=== PATIENT | male | born 1960 | race Hispanic/Latino ===

== ENCOUNTER 2016-10-20 08:56 | Day surgery (SDC) | payer OTHER ==
[2016-10-20] MEDS ORDERED: Indomethacin 50 MG Suppository PR ONE (09:18)
[2016-10-20 09:53] VITALS: BMI 29.7
[2016-10-20] MEDS ORDERED: Midazolam 2 MG/2 ML VIAL ONE (10:03)
[2016-10-20] MEDS ORDERED: Propofol 10 mg/ml Inj (20 ML) ONE (10:03)
[2016-10-20] MEDS ORDERED: Succinylcholine Chloride 20 mg/ml Syr (5 ml) IV ONE (10:03)
[2016-10-20] MEDS ORDERED: Phenylephrine 10 mg/ml Inj ONE (10:14)
--- NOTE | 2016-10-20 10:15 | CP.SDSHP ---
Same Day Surgery H & P - History Proposed Procedure: EGD/EUS/ERCP Pre-Op Diagnosis: Biliary obstruction. Cholangitis. CBD stricture. h/o metal cbd stent. Jaundice. Alcohol abuse. Chronic pancreatitis - Previous Medical/Surgical History Previous Surgical History: Biliary stent - Allergies Allergies: Allergies No Known Allergies Allergy (Verified 10/17/16 09:27) - Physical Exam General Appearance: jaundice Vital Signs: Vital Signs 10/20/16 09:43 Temperature 98 F Pulse Rate 66 Respiratory 20 Rate Blood Pressure 109/76 O2 Sat by Pulse 977 H Oximetry Mental Status: Alert & Oriented x3 Neuro: WNL Heart: WNL Lungs: WNL GI: WNL - {Optional Preform as Required} Abdomen: WNL - Impression Impression: Cholangitis. Chronic pancreatitis. Biliary obstruction. Etoh Abuse. CBD stricture - Date & Time Date: 10/20/16 Time: 10:15 Short Stay Discharge - Short Stay Discharge Admitting Diagnosis/Reason for Visit: SEPSIS,CHOLANGITIS Disposition: HOME/ ROUTINE
[2016-10-20 11:59] VITALS: TEMP 97.3
[2016-10-20 13:06] VITALS: O2SAT 97
[2016-10-20 13:24] VITALS: BP 115/64; PULSE 65; RESP 14
[2016-10-20] MEDS ORDERED: Iohexol 240 (50 ml) ONE (14:02)
--- NOTE | 2016-10-21 13:05 | RAD ---
PROCEDURE: Fluoroscopy up to 1 hour for ERCP HISTORY: Biliary obstruction COMPARISON: None TECHNIQUE: Total fluoroscopic time utilized during the procedure: 23897.3 seconds. Total dose 1.6 mGy cm squared FINDINGS: Submitted images from the current procedure: 14 Please refer to the physician's notes performing the procedure. IMPRESSION: Less than 1 hour fluoroscopic time utilized during performance of the procedure
== END 2016-10-20 13:22 | disposition designated cancer center or children's hospital (05) ==
LOC: C.ENDO 08:56
PROVIDERS: ATTEND Internal Medicine
DX: K86.1 Other chronic pancreatitis (principal); R16.1 Splenomegaly, not elsewhere classified; F10.10 Alcohol abuse, uncomplicated; K83.0 Cholangitis
CPT/HCPCS: 43259; 43260; 76000; 88307; C1726; J2001; J2250; J2370; J2405; J2704; J3010; Q9966

== ENCOUNTER 2017-05-25 16:29 | Inpatient (IN) | payer MEDICAID, OTHER ==
[2017-05-25 16:29] VITALS: BMI 29.7
[2017-05-25] MEDS ORDERED: Sodium Chloride 0.9% 1,000 ML IV ONE (21:04)
[2017-05-25] MEDS ORDERED: Piperacillin/Tazobact 3.375 gm 100 ML IV STA (21:16)
[2017-05-25 22:22] LABS: CALCIUM 8.4 mg/dl (8.6-10.4); GFR AFRICAN-AMERICAN > 60; GFR NON-AFRICAN AMERICAN > 60; LIPASE 100 U/L (23-300)
[2017-05-25 22:24] LABS: ALB/GLOB RATIO 1.1 (1.0-2.1); ALBUMIN 3.9 g/dL (3.5-5.0); ALT/SGPT 190 U/L (21-72); AST/SGOT 206 U/L (17-59); BLOOD UREA NITROGEN 13 mg/dL (9-20)
--- NOTE | 2017-05-25 22:43 | C.PDOC ---
History Of Present Illness 56yo male, presents to ED with complaints of epigastric pain and fevers, which is consistent with his prior episodes of cholangitis. patient was admitted previously in September 2016 and January 2017 with no follow up for a cholecystectomy. He currently offers no other complaints. Time Seen by Provider: 05/25/17 20:58 Chief Complaint (Nursing): Abdominal Pain History Per: Patient History/Exam Limitations: no limitations Current Symptoms Are (Timing): Still Present Location Of Pain/Discomfort: Epigastric Associated Symptoms: Fever Additional History Per: Patient Past Medical History Reviewed: Historical Data, Nursing Documentation, Vital Signs Vital Signs: Last Vital Signs Temp 99.3 F 05/25/17 19:59 Pulse 102 H 05/25/17 19:59 Resp 16 05/25/17 19:59 BP 131/79 05/25/17 19:59 Pulse Ox 97 05/25/17 23:06 - Medical History PMH: Anxiety, Depression, Gastritis, Pancreatitis, Seizures (RELATED TO ETHO ABUSE ) Denies: CHF, HIV, Chronic Kidney Disease Surgical History: Endoscopy - [facility] Procedures DILATION OF COMMON BILE DUCT WITH INTRALUMINAL DEVICE, ENDO (01/30/17) EXCISION OF COMMON BILE DUCT, ENDO, DIAGN (10/17/16) EXTIRPATION OF MATTER FROM COMMON BILE DUCT, ENDO (01/30/17) EXTIRPATION OF MATTER FROM PANCREATIC DUCT, ENDO (01/30/17) PHERESIS OF PLATELETS, SINGLE (10/17/16) Family History: States: Unknown Family Hx - Social History Hx Alcohol Use: Yes Hx Substance Use: No Review Of Systems Except As Marked, All Systems Reviewed And Found Negative. Constitutional: Positive for: Fever Gastrointestinal: Positive for: Abdominal Pain Physical Exam - Physical Exam Appears: Non-toxic, Other (moderate painful distress) Skin: Normal Color Head: Normacephalic Eye(s): bilateral: Normal Inspection Neck: Normal ROM, Supple Cardiovascular: Rhythm Regular Respiratory: Normal Breath Sounds, No Wheezing Gastrointestinal/Abdominal: Bowel Sounds, No Tenderness, Other (firm abdomen; + Shook's sign) Neurological/Psych: Oriented x3, Normal Speech, Normal Cognition ED Course And Treatment - Laboratory Results Result Diagrams: 05/25/17 22:03 Lab Interpretation: Abnormal O2 Sat by Pulse Oximetry: 97 (RA) Pulse Ox Interpretation: Normal - Radiology CXR: Interpreted by [place] CXR Interpretation: Yes: No Acute Disease - Other Rad abd x 2 X-Ray: Interpreted by Me (increased stool on R side) Reevaluation Time: 00:06 Reassessment Condition: Improved - Physician Consult Information Outcome Of Conversation: 2229: d/w Surg Trevor and Dr. Sweeney- will consult. 0000: dw Dr. Fátima Valenzuela, ok to admit Medical Decision Making Medical Decision Making: Plan: -- Case discussed with neurosurgical physician assistant at [phone] and will consult. Prior records reviewed, patient seen by Dr. Ornelas in past for an upper endoscopy. -- Labs -- IV fluids -- XR Abdomen -- Morphine 6mg IV -- Protonix 40mg IV -- Zofran 4mg IV -- IV Zosyn recurrent cholangitis- 3rd episode (in our hospital system) Seems pt lost to f/u for elective cholecystectomy after GB "cools down" Disposition Doctor Will See Patient In The: Hospital Counseled Patient/Family Regarding: Studies Performed, Diagnosis - Disposition Disposition: HOSPITALIZED Disposition Time: 00:08 Condition: GOOD Forms: [employer] (Greenlandic) - Clinical Impression Clinical Impression: Abdominal colic, Cholangitis - Scribe Statement The provider has reviewed the documentation as recorded by the Scribe (Maddison Ivory) Provider Attestation: All medical record entries made by the Scribe were at my direction and personally dictated by me. I have reviewed the chart and agree that the record accurately reflects my personal performance of the history, physical exam, medical decision making, and the department course for this patient. I have also personally directed, reviewed, and agree with the discharge instructions and disposition.
--- NOTE | 2017-05-25 23:52 | US ---
EXAM: US Abdomen Limited, Right Upper Quadrant CLINICAL HISTORY: 56 years old, male; Pain; Abdominal pain; Generalized; Additional info: Ruq, focus gb, h/o cholangitis TECHNIQUE: Real-time ultrasound of the right upper quadrant with image documentation. COMPARISON: No relevant prior studies available. FINDINGS: Limitations: Body habitus. Overlying bowel gas. Liver: Fatty infiltration. Probable 3.1 x 3.2 x 3.2 cm cyst. Mild intrahepatic ductal dilatation. Gallbladder: No definite gallstones. No wall thickening. Small pericholecystic fluid. No sonographic Shook's sign. Common bile duct: Up to 0.72 cm in diameter. No stones. Pancreas: Obscured by overlying bowel gas. Right kidney: Normal echogenicity. No hydronephrosis. IMPRESSION: 1. Mild biliary ductal dilatation. Correlate with laboratory values. Suggest MRCP. 2. Small pericholecystic fluid. Clinical correlation is needed.
[2017-05-26 00:53] LABS: BASO # 0.1 K/uL (0.0-0.2); BASO % 0.5 % (0.0-2.0); EOS % 0.1 % (0.0-4.0); LYMPH # 0.6 K/uL (1.0-4.3); LYMPH % 3.7 % (20.0-40.0); MEAN CELL VOLUME 89.3 fL (80.0-94.0); MEAN CORPUSCULAR HEMOGLOBIN 30.8 pg (27.0-31.0); MEAN CORPUSCULAR HGB CONC 34.5 g/dL (33.0-37.0); MEAN PLATELET VOLUME 10.2 fL (7.2-11.7); MONO # 1.3 K/uL (0.0-0.8); MONO % 8.3 % (0.0-10.0); NEUT # 13.9 K/uL (1.8-7.0); NEUT % 87.4 % (50.0-75.0); PLATELET COUNT 106 K/uL (130-400); RBC 4.88 Mil/uL (4.40-5.90); RED CELL DISTRIBUTION WIDTH 14.8 % (11.5-14.5); WHITE BLOOD COUNT 15.9 K/uL (4.8-10.8)
[2017-05-26 00:55] LABS: URINE BILIRUBIN 2+ (NEGATIVE); URINE BLOOD NEGATIVE (NEGATIVE); URINE CLARITY Clear (Clear); URINE COLOR Amber (YELLOW); URINE GLUCOSE (UA) NORMAL (Normal); URINE HYALINE CAST 0-2 /lpf (0-2); URINE LEUKOCYTE ESTERASE NEG Leu/uL (Negative); URINE NITRATE NEGATIVE (NEGATIVE); URINE PROTEIN NEGATIVE (NEGATIVE)
[2017-05-26] MEDS ORDERED: Morphine 4 MG/ML VIAL ONE (00:56)
[2017-05-26] MEDS ORDERED: Piperacillin/Tazobact 3.375 gm 100 ML IVPB SCH (01:00)
--- NOTE | 2017-05-26 01:07 | CP.PCM.CON ---
<NancySandrine - Last Filed: 05/26/17 01:13> History of Present Illness - History of Present Illness History of Present Illness: General Surgery Dr. Banuelos 56 y/o M w/ PMHx of cholangitis w/ ERCP and stenting, last in 01/2017, presents to the ED c/o abd pain x1day. Pain is similar to previous 2 episodes of ascending cholangitis. Pain localized to RUQ/epigastric region. Pain associated w/ nausea and dry heaves though pt denies actually vomiting. 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 Pt denies black stool or BRBPR. Pt is febrile in ED and found to have elevated LFTs and T. Bili. Surgery was consulted for suspected recurrent ascending cholangitis. PMHx: see above, EtOH dependence, seizures, gastritis, pancreatitis, anxiety, depression Meds: reviewed in chart. NKDA PSHx: ERCP w/ stenting, R inguinal hernia repair SHx: 1-1.5ppd x40yrs; stopped drinking 3yrs ago; denies drug use FHx: noncontributory Review of Systems - Review of Systems All systems: reviewed and no additional remarkable complaints except (see HPI) Past Patient History - Past Medical History & Family History Past Medical History?: Yes - Past Social History Smoking Status: Heavy Smoker > 10 Cigarettes Daily - CARDIAC Hx Congestive Heart Failure: No - PULMONARY Hx Respiratory Disorders: No - NEUROLOGICAL Hx Seizures: Yes (RELATED TO ETHO ABUSE ) - HEENT Hx HEENT Problems: No - RENAL Hx Chronic Kidney Disease: No - ENDOCRINE/METABOLIC Hx Endocrine Disorders: No - HEMATOLOGICAL/ONCOLOGICAL Hx Human Immunodeficiency Virus (HIV): No - INTEGUMENTARY Hx Dermatological Problems: No - MUSCULOSKELETAL/RHEUMATOLOGICAL Hx Musculoskeletal Disorders: Yes Hx Back Pain: Yes Hx Falls: No Hx Herniated Disk: Yes - GASTROINTESTINAL Hx Gastritis: Yes Hx Pancreatitis: Yes - GENITOURINARY/GYNECOLOGICAL Hx Genitourinary Disorders: No - PSYCHIATRIC Hx Anxiety: Yes Hx Depression: Yes Hx Substance Use: No - SURGICAL HISTORY Hx Surgeries: Yes Hx Bile Duct Stent: Yes (CBD STENT 2/3 YEARS AGO) Hx Herniorrhaphy: Yes - ANESTHESIA Hx Anesthesia: Yes Hx Anesthesia Reactions: No Hx Malignant Hyperthermia: No Meds Home Medications: Home Medication List Medication Instructions Recorded Confirmed Type Ciprofloxacin [Cipro] 500 mg PO BID #28 tab 05/28/17 Rx Metronidazole [Flagyl] 500 mg PO TID #40 tablet 05/28/17 Rx QUEtiapine [Seroquel] 200 mg PO HS #30 tab 05/28/17 Rx chlordiazePOXIDE [Librium] 25 mg PO TID PRN #15 cap 05/28/17 Rx Allergies/Adverse Reactions: Allergies Allergy/AdvReac Type Severity Reaction Status Date / Time No Known Allergies Allergy Verified 05/25/17 16:46 Physical Exam - Constitutional Appears: Non-toxic, No Acute Distress - Head Exam Head Exam: NORMAL INSPECTION - Eye Exam Eye Exam: Scleral icterus - ENT Exam ENT Exam: Mucous Membranes Moist - Respiratory Exam Respiratory Exam: NORMAL BREATHING PATTERN. absent: Accessory Muscle Use, Respiratory Distress - GI/Abdominal Exam GI & Abdominal Exam: Guarding (voluntary), Soft, Tenderness. absent: Distended , Rebound, Rigid - Extremities Exam Extremities exam: Positive for: normal inspection - Neurological Exam Neurological exam: Alert, Oriented x3 - Psychiatric Exam Psychiatric exam: Flat Affect, Normal Mood - Skin Skin Exam: Dry, Intact, Warm Results - Vital Signs Recent Vital Signs: Last Vital Signs Temp 99.3 F 05/25/17 19:59 Pulse 102 H 05/25/17 19:59 Resp 16 05/25/17 19:59 BP 131/79 05/25/17 19:59 Pulse Ox 97 05/26/17 00:08 - Labs Result Diagrams: 05/26/17 00:50 05/25/17 22:03 Labs: Laboratory Results - last 24 hr 05/25/17 05/26/17 22:03 00:44 Sodium 139 Potassium 4.9 Chloride 103 Carbon Dioxide 21 L Anion Gap 19 BUN 13 Creatinine 0.7 L Est GFR ( Amer) > 60 Est GFR (Non-Af Amer) > 60 Random Glucose 111 H Calcium 8.4 L Total Bilirubin 5.1 H AST 206 H D ALT 190 H Alkaline Phosphatase 292 H D Total Protein 7.7 Albumin 3.9 Globulin 3.7 Albumin/Globulin Ratio 1.1 Lipase 100 Urine Color Connie Urine Clarity Clear Urine pH 5.0 Ur Specific [place] 1.024 Urine Protein Negative Urine Glucose (UA) Normal Urine Ketones Trace Urine Blood Negative Urine Nitrate Negative Urine Bilirubin 2+ H Urine Urobilinogen 4.0 Ur Leukocyte Esterase Neg Urine WBC (Auto) 3 Urine RBC (Auto) 2 Hyaline Casts 0-2 Alcohol, Quantitative < 10 - Imaging and Cardiology US - abdomen Status: Image reviewed by me, Report reviewed by me Assessment & Plan - Assessment and Plan (Free Text) Assessment: 56 y/o M w/ sepsis and abd pain likely 2/2 ascending cholangitis - NPO, IVF - IV Abx - monitor vitals - GI consult - f/u recs - trend LFTs/T. Bili - surgery once infection clears or melquiades tube if pt decompensates Will discuss w/ Dr. Lakisha Cruz DO PGY2 <Drew Banuelos - Last Filed: 05/29/17 14:54> Results - Vital Signs Recent Vital Signs: Last Vital Signs Temp 97.4 F L 05/28/17 08:57 Pulse 74 05/28/17 08:57 Resp 20 05/28/17 08:57 BP 120/79 05/28/17 08:57 Pulse Ox 95 05/28/17 08:57 - Labs Result Diagrams: 05/28/17 07:16 05/28/17 07:16 Attending/Attestation - Attestation I have personally seen and examined this patient.: Yes I have fully participated in the care of the patient.: Yes I have reviewed all pertinent clinical information: Yes Notes (Text): Pt was seen and examined at beside Agree with above note and assessment Pt with RLQ pain and tenderness Labs and radiology reviewed Ass: Cholangitis s/p ERCP and stent with leucocytosis Plan : GI consult for ERCP and stent removal NPO, IVF IV antibiotics Plan d.w pt in detail Risk and benefit explained in detail.
[2017-05-26 01:36] LABS: BARBITURATES, UR NEGATIVE (NEGATIVE); OPIATES, UR NEGATIVE (NEGATIVE); PHENCYCLIDINE, UR NEGATIVE (NEGATIVE)
[2017-05-26 01:59] LABS: BENZODIAZEPINES, UR POSITIVE (NEGATIVE)
[2017-05-26] MEDS: Piperacillin/Tazobact 3.375 GM in Sodium Chloride 0.9% 100 ML IVPB SCH ×3 (02:30→18:00)
[2017-05-26 02:33] LABS: BANDS 5 % (0-2); LYMPHOCYTE 5 % (20-40); MONOCYTE 8 % (0-10); NEUTROPHIL 82 % (50-75); PLATELET CLUMPS PRESENT; TOTAL CELLS COUNTED 100
[2017-05-26] MEDS ORDERED: Gadodiamide 287 mg/ml 20 ml IV ONE (09:00)
--- NOTE | 2017-05-26 09:28 | CP.PCM.CON ---
<Pedro Mallory - Last Filed: 05/26/17 09:36> History of Present Illness - History of Present Illness History of Present Illness: PGY5 GI Fellow Consult Note Patient is a 56 year old male with PMHx significant for recurrent cholangitis s/ p metal biliary stent placement >5 years ago, chronic pancreatitis 2/2 prior EtOH abuse, polysubstance abuse, anxiety/depression who presented to the ED with complaint of abdominal pain. The patient states pain began yesterday morning in the RUQ and soon generalized to the entire abdomen. At present, he states pain remains worst in the RUQ/RLQ and R flank. He noticed fever, chills and diarrhea prior to arrival in the ED and as pain intensified he came to the hospital for evaluation. He was last seen by our service in January 2017 at [facility] with similar presentation. At that time, ERCP was performed revealing multiple areas of biliary dilation/stricture concerning for possible underlying PSC. A covered metal stent was present in the CBD but had significant tissue ingrowth. Balloon sweep removed sludge. At present, patient is noted to have fever with Tmax 102F and a direct hyperbilirubinemia (T bili 5.1). PMHx: See HPI PSHx: Metal biliary stent placement 5+ years ago, R inguinal hernia repair FHx: Discussed with patient and denies any pertinent history Social: Previously heavy EtOH use, sober 2+ years; +Tobacco use >30 years; prior cocaine, ecstasy and marijuana use 12 system ROS performed and negative except where stated. Past Patient History - Past Medical History & Family History Past Medical History?: Yes - Past Social History Smoking Status: Heavy Smoker > 10 Cigarettes Daily - CARDIAC Hx Congestive Heart Failure: No - PULMONARY Hx Respiratory Disorders: No - NEUROLOGICAL Hx Seizures: Yes (RELATED TO ETHO ABUSE ) - HEENT Hx HEENT Problems: No - RENAL Hx Chronic Kidney Disease: No - ENDOCRINE/METABOLIC Hx Endocrine Disorders: No - HEMATOLOGICAL/ONCOLOGICAL Hx Human Immunodeficiency Virus (HIV): No - INTEGUMENTARY Hx Dermatological Problems: No - MUSCULOSKELETAL/RHEUMATOLOGICAL Hx Musculoskeletal Disorders: Yes Hx Back Pain: Yes Hx Falls: No Hx Herniated Disk: Yes - GASTROINTESTINAL Hx Gastritis: Yes Hx Pancreatitis: Yes - GENITOURINARY/GYNECOLOGICAL Hx Genitourinary Disorders: No - PSYCHIATRIC Hx Anxiety: Yes Hx Depression: Yes Hx Substance Use: No - SURGICAL HISTORY Hx Surgeries: Yes Hx Bile Duct Stent: Yes (CBD STENT 2/3 YEARS AGO) Hx Herniorrhaphy: Yes - ANESTHESIA Hx Anesthesia: Yes Hx Anesthesia Reactions: No Hx Malignant Hyperthermia: No Meds Allergies/Adverse Reactions: Allergies Allergy/AdvReac Type Severity Reaction Status Date / Time No Known Allergies Allergy Verified 05/25/17 16:46 - Medications Medications: Current Medications Chlordiazepoxide (Librium) 25 mg PO PRN PRN PRN Reason: TREMORS Last Admin: 05/26/17 02:37 Dose: 25 mg Enoxaparin Sodium (Lovenox) 40 mg SC DAILY [facility] Metronidazole (Flagyl) 500 mg in 100 mls @ 100 mls/hr IVPB BID [facility] Piperacillin Sod/Tazobactam (Sod 3.375 gm/ Sodium Chloride) 100 mls @ 100 mls/ hr IVPB Q8H JULI Last Admin: 05/26/17 02:30 Dose: 100 mls/hr Pantoprazole Sodium (Protonix Ec Tab) 40 mg PO DAILY [facility] Quetiapine Fumarate (Seroquel) 200 mg PO HS [facility] Physical Exam - Constitutional Appears: No Acute Distress - Eye Exam Eye Exam: EOMI, PERRL, Scleral icterus - ENT Exam ENT Exam: Mucous Membranes Dry - Respiratory Exam Respiratory Exam: Clear to Auscultation Bilateral. absent: Rales, Rhonchi, Wheezes - Cardiovascular Exam Cardiovascular Exam: Tachycardia, REGULAR RHYTHM, +S1, +S2 - GI/Abdominal Exam GI & Abdominal Exam: Guarding, Normal Bowel Sounds, Soft, Tenderness (RUQ, RLQ) . absent: Distended, Firm, Hernia, Organomegaly, Rigid - Extremities Exam Extremities exam: Positive for: normal inspection. Negative for: pedal edema - Neurological Exam Neurological exam: Alert, Oriented x3 - Psychiatric Exam Psychiatric exam: Flat Affect - Skin Skin Exam: Dry, Warm Results - Vital Signs Recent Vital Signs: Last Vital Signs Temp 99 F 05/26/17 07:20 Pulse 96 H 05/26/17 07:20 Resp 18 05/26/17 07:20 BP 109/69 05/26/17 07:20 Pulse Ox 99 05/26/17 07:20 - Labs Result Diagrams: 05/26/17 00:50 05/25/17 22:03 Labs: Laboratory Results - last 24 hr 05/25/17 05/25/1705/26/18 22:03 23:52 00:44 WBC RBC Hgb Hct MCV MCH MCHC RDW Plt Count MPV Neut % (Auto) Lymph % (Auto) [place] % (Auto) Eos % (Auto) Baso % (Auto) Neut # (Auto) Lymph # (Auto) [place] # (Auto) Eos # (Auto) Baso # (Auto) Neutrophils % (Manual) Band Neutrophils % Lymphocytes % (Manual) Monocytes % (Manual) Platelet Estimate Plt Clumps, EDTA Sodium 139 Potassium 4.9 Chloride 103 Carbon Dioxide 21 L Anion Gap 19 BUN 13 Creatinine 0.7 L Est GFR ( Amer) > 60 Est GFR (Non-Af Amer) > 60 Random Glucose 111 H Calcium 8.4 L Total Bilirubin 5.1 H Direct Bilirubin 3.3 H AST 206 H D ALT 190 H Alkaline Phosphatase 292 H D Total Protein 7.7 Albumin 3.9 Globulin 3.7 Albumin/Globulin Ratio 1.1 Lipase 100 Urine Color Connie Urine Clarity Clear Urine pH 5.0 Ur Specific Coy 1.024 Urine Protein Negative Urine Glucose (UA) Normal Urine Ketones Trace Urine Blood Negative Urine Nitrate Negative Urine Bilirubin 2+ H Urine Urobilinogen 4.0 Ur Leukocyte Esterase Neg Urine WBC (Auto) 3 Urine RBC (Auto) 2 Hyaline Casts 0-2 Urine Opiates Screen Urine Methadone Screen Ur Barbiturates Screen Ur Phencyclidine Scrn Ur Amphetamines Screen U Benzodiazepines Scrn U Oth Cocaine Metabols U Cannabinoids Screen Alcohol, Quantitative < 10 05/26/17 05/26/17 00:44 00:50 WBC 15.9 H RBC 4.88 Hgb 15.0 Hct 43.6 MCV 89.3 MCH 30.8 MCHC 34.5 RDW 14.8 H Plt Count 106 L MPV 10.2 Neut % (Auto) 87.4 H Lymph % (Auto) 3.7 L [place] % (Auto) 8.3 Eos % (Auto) 0.1 Baso % (Auto) 0.5 Neut # (Auto) 13.9 H Lymph # (Auto) 0.6 L [place] # (Auto) 1.3 H Eos # (Auto) 0.0 Baso # (Auto) 0.1 Neutrophils % (Manual) 82 H Band Neutrophils % 5 H Lymphocytes % (Manual) 5 L Monocytes % (Manual) 8 Platelet Estimate TEST NOT PERFORMED Plt Clumps, EDTA Present Sodium Potassium Chloride Carbon Dioxide Anion Gap BUN Creatinine Est GFR ( Amer) Est GFR (Non-Af Amer) Random Glucose Calcium Total Bilirubin Direct Bilirubin AST ALT Alkaline Phosphatase Total Protein Albumin Globulin Albumin/Globulin Ratio Lipase Urine Color Urine Clarity Urine pH Ur Specific Coy Urine Protein Urine Glucose (UA) Urine Ketones Urine Blood Urine Nitrate Urine Bilirubin Urine Urobilinogen Ur Leukocyte Esterase Urine WBC (Auto) Urine RBC (Auto) Hyaline Casts Urine Opiates Screen Negative Urine Methadone Screen Negative Ur Barbiturates Screen Negative Ur Phencyclidine Scrn Negative Ur Amphetamines Screen Negative U Benzodiazepines Scrn Positive U Oth Cocaine Metabols Negative U Cannabinoids Screen Negative Alcohol, Quantitative Assessment & Plan - Assessment and Plan (Free Text) Assessment: Patient is a 56 year old male with PMHx significant for recurrent cholangitis s/ p metal biliary stent placement >5 years ago, chronic pancreatitis 2/2 prior EtOH abuse, polysubstance abuse, anxiety/depression who presented to the ED with complaint of abdominal pain -Acute cholangitis -Sepsis 2/2 above -Chronic pancreatitis -Prior polysubstance abuse Plan: -IVF resuscitation as ordered -Broad spectrum antibiotic coverage started - Zosyn -Blood and urine cx -Plan for ERCP tomorrow morning - may require fully covered metal stent placement inside currently placed stent to assist with biliary drainage -MRCP ordered/performed in ED prior to evaluation -U/S reviewed -Liquid diet as tolerated -NPO past MN -Hold Lovenox -Analgesia/antiemetics per primary service - Date & Time Date: 05/26/17 Time: 06:20 <Michael Ornelas Y - Last Filed: 05/26/17 15:48> Meds - Medications Medications: Current Medications Acetaminophen (Tylenol 325mg Tab) 650 mg PO Q4 [facility] Chlordiazepoxide (Librium) 25 mg PO PRN PRN PRN Reason: TREMORS Last Admin: 05/26/17 10:56 Dose: 25 mg Enoxaparin Sodium (Lovenox) 40 mg SC DAILY [facility] Last Admin: 05/26/17 10:58 Dose: 40 mg Hydromorphone HCl (Dilaudid) 1 mg IVP Q8H PRN PRN Reason: Pain, severe (8-10) Last Admin: 05/26/17 11:10 Dose: 1 mg Metronidazole (Flagyl) 500 mg in 100 mls @ 100 mls/hr IVPB BID [facility] Piperacillin Sod/Tazobactam (Sod 3.375 gm/ Sodium Chloride) 100 mls @ 100 mls/ hr IVPB Q8H [facility] Last Admin: 05/26/17 11:00 Dose: 100 mls/hr Pantoprazole Sodium (Protonix Ec Tab) 40 mg PO DAILY [facility] Last Admin: 05/26/17 10:58 Dose: 40 mg Quetiapine Fumarate (Seroquel) 200 mg PO HS [facility] Results - Vital Signs Recent Vital Signs: Last Vital Signs Temp 99.5 F 05/26/17 15:22 Pulse 76 05/26/17 15:22 Resp 18 05/26/17 15:22 BP 103/66 05/26/17 15:22 Pulse Ox 98 05/26/17 15:22 - Labs Result Diagrams: 05/26/17 00:50 05/25/17 22:03 Labs: Laboratory Results - last 24 hr 05/25/17 05/25/17 05/26/17 22:03 23:52 00:44 WBC RBC Hgb Hct MCV MCH MCHC RDW Plt Count MPV Neut % (Auto) Lymph % (Auto) [place] % (Auto) Eos % (Auto) Baso % (Auto) Neut # (Auto) Lymph # (Auto) [place] # (Auto) Eos # (Auto) Baso # (Auto) Neutrophils % (Manual) Band Neutrophils % Lymphocytes % (Manual) Monocytes % (Manual) Platelet Estimate Plt Clumps, EDTA Sodium 139 Potassium 4.9 Chloride 103 Carbon Dioxide 21 L Anion Gap 19 BUN 13 Creatinine 0.7 L Est GFR ( Amer) > 60 Est GFR (Non-Af Amer) > 60 Random Glucose 111 H Lactic Acid Calcium 8.4 L Total Bilirubin 5.1 H Direct Bilirubin 3.3 H AST 206 H D ALT 190 H Alkaline Phosphatase 292 H D Total Protein 7.7 Albumin 3.9 Globulin 3.7 Albumin/Globulin Ratio 1.1 Lipase 100 Urine Color Connie Urine Clarity Clear Urine pH 5.0 Ur Specific Coy 1.024 Urine Protein Negative Urine Glucose (UA) Normal Urine Ketones Trace Urine Blood Negative Urine Nitrate Negative Urine Bilirubin 2+ H Urine Urobilinogen 4.0 Ur Leukocyte Esterase Neg Urine WBC (Auto) 3 Urine RBC (Auto) 2 Hyaline Casts 0-2 Urine Opiates Screen Urine Methadone Screen Ur Barbiturates Screen Ur Phencyclidine Scrn Ur Amphetamines Screen U Benzodiazepines Scrn U Oth Cocaine Metabols U Cannabinoids Screen Alcohol, Quantitative < 10 05/26/17 05/26/17 05/26/17 00:44 00:50 12:08 WBC 15.9 H RBC 4.88 Hgb 15.0 Hct 43.6 MCV 89.3 MCH 30.8 MCHC 34.5 RDW 14.8 H Plt Count 106 L MPV 10.2 Neut % (Auto) 87.4 H Lymph % (Auto) 3.7 L [place] % (Auto) 8.3 Eos % (Auto) 0.1 Baso % (Auto) 0.5 Neut # (Auto) 13.9 H Lymph # (Auto) 0.6 L [place] # (Auto) 1.3 H Eos # (Auto) 0.0 Baso # (Auto) 0.1 Neutrophils % (Manual) 82 H Band Neutrophils % 5 H Lymphocytes % (Manual) 5 L Monocytes % (Manual) 8 Platelet Estimate TEST NOT PERFORMED Plt Clumps, EDTA Present Sodium Potassium Chloride Carbon Dioxide Anion Gap BUN Creatinine Est GFR ( Amer) Est GFR (Non-Af Amer) Random Glucose Lactic Acid 1.3 Calcium Total Bilirubin Direct Bilirubin AST ALT Alkaline Phosphatase Total Protein Albumin Globulin Albumin/Globulin Ratio Lipase Urine Color Urine Clarity Urine pH Ur Specific Coy Urine Protein Urine Glucose (UA) Urine Ketones Urine Blood Urine Nitrate Urine Bilirubin Urine Urobilinogen Ur Leukocyte Esterase Urine WBC (Auto) Urine RBC (Auto) Hyaline Casts Urine Opiates Screen Negative Urine Methadone Screen Negative Ur Barbiturates Screen Negative Ur Phencyclidine Scrn Negative Ur Amphetamines Screen Negative U Benzodiazepines Scrn Positive U Oth Cocaine Metabols Negative U Cannabinoids Screen Negative Alcohol, Quantitative 05/26/17 14:50 WBC RBC Hgb Hct MCV MCH MCHC RDW Plt Count MPV Neut % (Auto) Lymph % (Auto) [place] % (Auto) Eos % (Auto) Baso % (Auto) Neut # (Auto) Lymph # (Auto) [place] # (Auto) Eos # (Auto) Baso # (Auto) Neutrophils % (Manual) Band Neutrophils % Lymphocytes % (Manual) Monocytes % (Manual) Platelet Estimate Plt Clumps, EDTA Sodium Potassium Chloride Carbon Dioxide Anion Gap BUN Creatinine Est GFR ( Amer) Est GFR (Non-Af Amer) Random Glucose Lactic Acid 1.1 Calcium Total Bilirubin Direct Bilirubin AST ALT Alkaline Phosphatase Total Protein Albumin Globulin Albumin/Globulin Ratio Lipase Urine Color Urine Clarity Urine pH Ur Specific Coy Urine Protein Urine Glucose (UA) Urine Ketones Urine Blood Urine Nitrate Urine Bilirubin Urine Urobilinogen Ur Leukocyte Esterase Urine WBC (Auto) Urine RBC (Auto) Hyaline Casts Urine Opiates Screen Urine Methadone Screen Ur Barbiturates Screen Ur Phencyclidine Scrn Ur Amphetamines Screen U Benzodiazepines Scrn U Oth Cocaine Metabols U Cannabinoids Screen Alcohol, Quantitative Attending/Attestation - Attestation I have personally seen and examined this patient.: Yes I have fully participated in the care of the patient.: Yes I have reviewed all pertinent clinical information: Yes Notes (Text): 05/26/17 15:42 I have seen and examined patient with GI fellow. Agree with above documentation with the following additions. In brief, this is a 56 year old male with history of chronic ETOH pancreatitis (patient reports period of sobriety for past 3 years), cholangitis with metallic biliary stent placement ( reasons unclear, though ?PSC) who presents to hospital with complaint of abdominal pain which began yesterday. He describes a sharp RUQ abdominal pain, 7/10 intensity with radiation to back that was associated with subjective fever/ chills and one episode of non-bloody diarrhea yesterday. Prior to this he was in usual state of health. He was admitted to [facility] in January 2017 with similar presentation, underwent ERCP with sludge extraction from CBD. At the time he was also being considered for underlying PSC based on cholangiogram imaging. He otherwise denies vomiting, weight loss, rectal bleeding, or change in bowel habits. Chronic ETOH pancreatitis Abdominal pain, fever - acute cholangitis History of metallic biliary stent ?PSC - Liquid diet as tolerated - Continue with antibiotic therapy - Follow up blood culture results - Follow up results of MRCP - Will plan for ERCP tomorrow for further management of suspected acute cholangitis. Further management pending endoscopic findings. Patient may ultimately benefit from tertiary care referral to liver transplant service for definitive treatment of suspected PSC. - NPO after midnight
[2017-05-26] MEDS ORDERED: Enoxaparin 40 mg Syringe SC SCH (10:00)
[2017-05-26] MEDS: Pantoprazole 40 mg EC Tab PO SCH (10:58)
[2017-05-26] MEDS ORDERED: HYDROmorphone 1 mg/ml ISec IVP PRN (11:03)
[2017-05-26] MEDS ORDERED: HYDROmorphone 1 mg/ml ISec ONE (11:08)
[2017-05-26] MEDS: metroNIDAZOLE IV 500 mg/100 ml 500 MG/100 ML BAG IVPB SCH ×2 (11:30→19:20)
--- NOTE | 2017-05-26 11:39 | MRI ---
MRI abdomen without/with IV contrast MRCP Indication: Abdominal pain, dx cholangitis Technique: Multiplanar, multi sequence magnetic resonance images of the abdomen were obtained without and with the administration of intravenous gadolinium using a multi phase abdomen protocol. Rotating maximum intensity projection images of the biliary system were generated. A total of 1077 images submitted for review Comparison: Limited abdominal ultrasound performed 05/25/17 Findings: Examination markedly limited due to patient motion and difficulty with breath hold. 2.9 cm T2 hyperintense/T1 hypo intense lesion without evidence of post-contrast enhancement noted within the inferior right hepatic lobe consistent with a cyst. Pericholecystic edema/gallbladder-wall thickening. No gallstones evident. Intrahepatic biliary ductal dilatation. Suboptimal visualization of the common bile duct measuring approximately 7 mm. The pancreatic duct does not appear dilated. No clear evidence of filling defects within the common bile duct or pancreatic duct. 1.5 cm inferior splenic T2 hyperintense/ T1 hypo intense lesion without evidence of post-contrast enhancement, likely cyst. Additional too small to characterize T2 hyperintensities, statistically likely cysts. 7 mm T2 hyperintensity within the right kidney, too small to characterize. The partially imaged portions of the pancreas, kidneys, and adrenal glands appear otherwise grossly unremarkable. No bulky adenopathy identified. No evidence of ascites. Limited views of the inferior thorax appear unremarkable. Impression: Limited study due to patient motion and difficulty with breath hold. Intrahepatic biliary ductal dilatation. Suboptimal visualization of the common bile duct which measures approximately 7 mm. No clear evidence of focal filling defect within the common bile duct. Correlate clinically. Pericholecystic edema/gallbladder-wall thickening. No gallstones evident. Correlate clinically for possibility of cholecystitis. Probable hepatic and splenic cysts as above. Too small to characterize 7 mm T2 hyperintensity within the right kidney, statistically likely cysts.
--- NOTE | 2017-05-26 12:21 | RAD ---
PROCEDURE: Radiographs of the chest and abdomen (obstructive series) HISTORY: abd pain COMPARISON: No prior. TECHNIQUE: AP radiograph of the chest, with upright and supine radiographs of the abdomen. FINDINGS: CHEST: Lungs: Clear. Cardiovascular: Normal size heart. No pulmonary vascular congestion. Pleura: No pleural fluid. No pneumothorax. Other findings: None. ABDOMEN AND PELVIS: Bowel: A biliary stent projects over the L1-2 level. Clustered small calcification in the pancreatic body and tail suspect. Additional calculi in cystic duct not excluded may also be a gout stool content related and/or pancreatic head related. . Moderate stool retention. Redundant transverse colon. No bowel obstruction. Free air: None. Bones: Bilateral hip arthrosis. Inferior right sacroiliac sclerotic arthrosis. Other findings: None. IMPRESSION: Biliary stent. Pancreatic calcifications inferred. Full extent and position of calcifications unclear. Stool retention and transverse colonic redundancy. No bowel obstruction No infiltrate
--- NOTE | 2017-05-26 17:24 | CP.PCM.PN ---
Subjective - Date & Time of Evaluation Date of Evaluation: 05/26/17 Time of Evaluation: 09:40 - Subjective Subjective: clinically same Objective - Vital Signs/Intake and Output Vital Signs (last 24 hours): Temp Pulse Resp BP Pulse Ox 98.5 F 78 20 100/60 95 05/26/17 16:42 05/26/17 16:42 05/26/17 16:42 05/26/17 16:42 05/26/17 16:42 - Medications Medications: Current Medications Acetaminophen (Tylenol 325mg Tab) 650 mg PO Q4 PRN PRN Reason: Fever >100.4 F Last Admin: 05/26/17 12:05 Dose: 650 mg Chlordiazepoxide (Librium) 25 mg PO PRN PRN PRN Reason: TREMORS Last Admin: 05/26/17 10:56 Dose: 25 mg Enoxaparin Sodium (Lovenox) 40 mg SC DAILY [facility] Last Admin: 05/26/17 10:58 Dose: 40 mg Hydromorphone HCl (Dilaudid) 1 mg IVP Q8H PRN PRN Reason: Pain, severe (8-10) Last Admin: 05/26/17 11:10 Dose: 1 mg Metronidazole (Flagyl) 500 mg in 100 mls @ 100 mls/hr IVPB BID [facility] Last Admin: 05/26/17 11:30 Dose: 100 mls/hr Piperacillin Sod/Tazobactam (Sod 3.375 gm/ Sodium Chloride) 100 mls @ 100 mls/ hr IVPB Q8H [facility] Last Admin: 05/26/17 11:00 Dose: 100 mls/hr Pantoprazole Sodium (Protonix Ec Tab) 40 mg PO DAILY [facility] Last Admin: 05/26/17 10:58 Dose: 40 mg Quetiapine Fumarate (Seroquel) 200 mg PO HS [facility] - Labs Labs: 05/26/17 00:50 05/25/17 22:03 - Constitutional Appears: Well - Head Exam Head Exam: ATRAUMATIC, NORMAL INSPECTION, NORMOCEPHALIC - Eye Exam Eye Exam: EOMI, Normal appearance, PERRL Pupil Exam: NORMAL ACCOMODATION, PERRL - ENT Exam ENT Exam: Mucous Membranes Moist, Normal Exam - Neck Exam Neck Exam: Full ROM, Normal Inspection. absent: Lymphadenopathy - Respiratory Exam Respiratory Exam: Decreased Breath Sounds - Cardiovascular Exam Cardiovascular Exam: REGULAR RHYTHM, +S1, +S2 - GI/Abdominal Exam GI & Abdominal Exam: Soft, Diminished Bowel Sounds - Rectal Exam Rectal Exam: Deferred
--- NOTE | 2017-05-26 17:29 | CP.PCM.HP ---
Past Patient History - Past Medical History & Family History Past Medical History?: Yes - Past Social History Smoking Status: Heavy Smoker > 10 Cigarettes Daily - CARDIAC Hx Congestive Heart Failure: No - PULMONARY Hx Respiratory Disorders: No - NEUROLOGICAL Hx Neurological Disorder: Yes Hx Seizures: Yes (RELATED TO ETHO ABUSE ) - HEENT Hx HEENT Problems: No - RENAL Hx Chronic Kidney Disease: No - ENDOCRINE/METABOLIC Hx Endocrine Disorders: No - HEMATOLOGICAL/ONCOLOGICAL Hx Human Immunodeficiency Virus (HIV): No - INTEGUMENTARY Hx Dermatological Problems: No - MUSCULOSKELETAL/RHEUMATOLOGICAL Hx Musculoskeletal Disorders: Yes Hx Back Pain: Yes Hx Falls: No Hx Herniated Disk: Yes - GASTROINTESTINAL Hx Gastrointestinal Disorders: Yes Hx Gastritis: Yes Hx Pancreatitis: Yes - GENITOURINARY/GYNECOLOGICAL Hx Genitourinary Disorders: No - PSYCHIATRIC Hx Psychophysiologic Disorder: Yes Hx Anxiety: Yes Hx Depression: Yes Hx Substance Use: No - SURGICAL HISTORY Hx Surgeries: Yes Hx Bile Duct Stent: Yes (CBD STENT 2/3 YEARS AGO) Hx Herniorrhaphy: Yes - ANESTHESIA Hx Anesthesia: Yes Hx Anesthesia Reactions: No Hx Malignant Hyperthermia: No Has any member of the family had a problem w/ anesthesia?: No Meds Allergies/Adverse Reactions: Allergies Allergy/AdvReac Type Severity Reaction Status Date / Time No Known Allergies Allergy Verified 05/25/17 16:46 Physical Exam - Constitutional Appears: Well - Head Exam Head Exam: ATRAUMATIC, NORMAL INSPECTION, NORMOCEPHALIC - Eye Exam Eye Exam: EOMI, Normal appearance, PERRL Pupil Exam: NORMAL ACCOMODATION, PERRL - ENT Exam ENT Exam: Mucous Membranes Moist, Normal Exam - Neck Exam Neck exam: Positive for: Normal Inspection - Respiratory Exam Respiratory Exam: Decreased Breath Sounds - Cardiovascular Exam Cardiovascular Exam: REGULAR RHYTHM, +S1, +S2 - GI/Abdominal Exam GI & Abdominal Exam: Diminished Bowel Sounds, Soft - Rectal Exam Rectal Exam: Deferred Results - Vital Signs Recent Vital Signs: Last Vital Signs Temp 98.5 F 05/26/17 16:42 Pulse 78 05/26/17 16:42 Resp 20 05/26/17 16:42 BP 100/60 05/26/17 16:42 Pulse Ox 95 05/26/17 16:42 - Labs Result Diagrams: 05/26/17 00:50 05/25/17 22:03 Labs: Laboratory Results - last 24 hr 0205/25/17 05/26/17 22:03 23:52 00:44 WBC RBC Hgb Hct MCV MCH MCHC RDW Plt Count MPV Neut % (Auto) Lymph % (Auto) [place] % (Auto) Eos % (Auto) Baso % (Auto) Neut # (Auto) Lymph # (Auto) [place] # (Auto) Eos # (Auto) Baso # (Auto) Neutrophils % (Manual) Band Neutrophils % Lymphocytes % (Manual) Monocytes % (Manual) Platelet Estimate Plt Clumps, EDTA Sodium 139 Potassium 4.9 Chloride 103 Carbon Dioxide 21 L Anion Gap 19 BUN 13 Creatinine 0.7 L Est GFR ( Amer) > 60 Est GFR (Non-Af Amer) > 60 Random Glucose 111 H Lactic Acid Calcium 8.4 L Total Bilirubin 5.1 H Direct Bilirubin 3.3 H AST 206 H D ALT 190 H Alkaline Phosphatase 292 H D Total Protein 7.7 Albumin 3.9 Globulin 3.7 Albumin/Globulin Ratio 1.1 Lipase 100 Urine Color Connie Urine Clarity Clear Urine pH 5.0 Ur Specific Ralph 1.024 Urine Protein Negative Urine Glucose (UA) Normal Urine Ketones Trace Urine Blood Negative Urine Nitrate Negative Urine Bilirubin 2+ H Urine Urobilinogen 4.0 Ur Leukocyte Esterase Neg Urine WBC (Auto) 3 Urine RBC (Auto) 2 Hyaline Casts 0-2 Urine Opiates Screen Urine Methadone Screen Ur Barbiturates Screen Ur Phencyclidine Scrn Ur Amphetamines Screen U Benzodiazepines Scrn U Oth Cocaine Metabols U Cannabinoids Screen Alcohol, Quantitative < 10 05/26/17 05/26/17 05/26/17 00:44 00:50 12:08 WBC 15.9 H RBC 4.88 Hgb 15.0 Hct 43.6 MCV 89.3 MCH 30.8 MCHC 34.5 RDW 14.8 H Plt Count 106 L MPV 10.2 Neut % (Auto) 87.4 H Lymph % (Auto) 3.7 L [place] % (Auto) 8.3 Eos % (Auto) 0.1 Baso % (Auto) 0.5 Neut # (Auto) 13.9 H Lymph # (Auto) 0.6 L [place] # (Auto) 1.3 H Eos # (Auto) 0.0 Baso # (Auto) 0.1 Neutrophils % (Manual) 82 H Band Neutrophils % 5 H Lymphocytes % (Manual) 5 L Monocytes % (Manual) 8 Platelet Estimate TEST NOT PERFORMED Plt Clumps, EDTA Present Sodium Potassium Chloride Carbon Dioxide Anion Gap BUN Creatinine Est GFR ( Amer) Est GFR (Non-Af Amer) Random Glucose Lactic Acid 1.3 Calcium Total Bilirubin Direct Bilirubin AST ALT Alkaline Phosphatase Total Protein Albumin Globulin Albumin/Globulin Ratio Lipase Urine Color Urine Clarity Urine pH Ur Specific Ralph Urine Protein Urine Glucose (UA) Urine Ketones Urine Blood Urine Nitrate Urine Bilirubin Urine Urobilinogen Ur Leukocyte Esterase Urine WBC (Auto) Urine RBC (Auto) Hyaline Casts Urine Opiates Screen Negative Urine Methadone Screen Negative Ur Barbiturates Screen Negative Ur Phencyclidine Scrn Negative Ur Amphetamines Screen Negative U Benzodiazepines Scrn Positive U Oth Cocaine Metabols Negative U Cannabinoids Screen Negative Alcohol, Quantitative 05/26/17 14:50 WBC RBC Hgb Hct MCV MCH MCHC RDW Plt Count MPV Neut % (Auto) Lymph % (Auto) [place] % (Auto) Eos % (Auto) Baso % (Auto) Neut # (Auto) Lymph # (Auto) [place] # (Auto) Eos # (Auto) Baso # (Auto) Neutrophils % (Manual) Band Neutrophils % Lymphocytes % (Manual) Monocytes % (Manual) Platelet Estimate Plt Clumps, EDTA Sodium Potassium Chloride Carbon Dioxide Anion Gap BUN Creatinine Est GFR ( Amer) Est GFR (Non-Af Amer) Random Glucose Lactic Acid 1.1 Calcium Total Bilirubin Direct Bilirubin AST ALT Alkaline Phosphatase Total Protein Albumin Globulin Albumin/Globulin Ratio Lipase Urine Color Urine Clarity Urine pH Ur Specific Ralph Urine Protein Urine Glucose (UA) Urine Ketones Urine Blood Urine Nitrate Urine Bilirubin Urine Urobilinogen Ur Leukocyte Esterase Urine WBC (Auto) Urine RBC (Auto) Hyaline Casts Urine Opiates Screen Urine Methadone Screen Ur Barbiturates Screen Ur Phencyclidine Scrn Ur Amphetamines Screen U Benzodiazepines Scrn U Oth Cocaine Metabols U Cannabinoids Screen Alcohol, Quantitative
[2017-05-27] MEDS: Piperacillin/Tazobact 3.375 GM in Sodium Chloride 0.9% 100 ML IVPB SCH ×3 (01:25→17:30)
[2017-05-27 07:01] LABS: BASO % 0.3 % (0.0-2.0); EOS % 0.5 % (0.0-4.0); HEMOGLOBIN 13.3 g/dL (12.0-18.0); LYMPH # 0.6 K/uL (1.0-4.3); LYMPH % 8.4 % (20.0-40.0); MEAN CELL VOLUME 90.1 fL (80.0-94.0); MEAN CORPUSCULAR HEMOGLOBIN 30.8 pg (27.0-31.0); MEAN CORPUSCULAR HGB CONC 34.2 g/dL (33.0-37.0); MEAN PLATELET VOLUME 10.2 fL (7.2-11.7); MONO # 0.5 K/uL (0.0-0.8); NEUT # 6.3 K/uL (1.8-7.0); NEUT % 83.8 % (50.0-75.0)
[2017-05-27 07:15] LABS: INR 1.4; PROTHROMBIN TIME 15.8 SECONDS (9.7-12.2)
[2017-05-27] MEDS ORDERED: Iohexol 240 (50 ml) ONE (07:15)
[2017-05-27] MEDS ORDERED: Indomethacin 50 MG Suppository PR ONE (07:16)
[2017-05-27] MEDS ORDERED: Glucagon Recombinant 1 mg Inj ONE (07:17)
[2017-05-27 07:21] LABS: PLATELET COUNT 73 K/uL (130-400); WHITE BLOOD COUNT 7.5 K/uL (4.8-10.8)
[2017-05-27] MEDS ORDERED: Water For Injection 40 ML IV ONE ×2 (07:25→07:32)
[2017-05-27 07:27] LABS: ALB/GLOB RATIO 1.1 (1.0-2.1); ALBUMIN 3.2 g/dL (3.5-5.0); ALT/SGPT 148 U/L (21-72); AST/SGOT 90 U/L (17-59); BLOOD UREA NITROGEN 11 mg/dL (9-20); CALCIUM 8.4 mg/dl (8.6-10.4); GFR AFRICAN-AMERICAN > 60; GFR NON-AFRICAN AMERICAN > 60
[2017-05-27] MEDS ORDERED: Propofol 10 mg/ml Inj (20 ML) ONE (07:35)
[2017-05-27] MEDS ORDERED: Midazolam 2 MG/2 ML VIAL ONE (07:35)
[2017-05-27] MEDS ORDERED: Succinylcholine Chloride 20 mg/ml Syr (5 ml) IV ONE (07:36)
[2017-05-27] MEDS ORDERED: Phenylephrine 10 mg/ml Inj ONE (07:37)
[2017-05-27] MEDS: Indomethacin 50 MG Suppository PR ONE ×2 (07:45→12:48)
[2017-05-27 08:34] LABS: BANDS 2 % (0-2); LYMPHOCYTE 7 % (20-40); MONOCYTE 6 % (0-10); NEUTROPHIL 85 % (50-75); PLATELET ESTIMATE DECREASED (NORMAL); TOTAL CELLS COUNTED 100
[2017-05-27] MEDS ORDERED: Lactated Ringer's 1,000 ML IV ONE (08:40)
[2017-05-27] MEDS: Pantoprazole 40 mg EC Tab PO SCH (09:30)
[2017-05-27] MEDS ORDERED: Pneumococcal 23-Valent Vaccine IM ONE (10:00)
[2017-05-27] MEDS ORDERED: Influenza Vaccine 60 mcg/0.5 mL SYR (4YR UP) IM ONE (10:00)
[2017-05-27] MEDS: metroNIDAZOLE IV 500 mg/100 ml 500 MG/100 ML BAG IVPB SCH ×2 (10:08→22:01)
--- NOTE | 2017-05-27 12:15 | CP.PCM.CON ---
History of Present Illness - History of Present Illness History of Present Illness: 56 year old male with PMHx significant for recurrent cholangitis s/p metal biliary stent placement >5 years ago, chronic pancreatitis 2/2 prior EtOH abuse , polysubstance abuse, anxiety/depression who presented to the ED with complaint of abdominal pain. The patient states pain began yesterday morning in the RUQ and soon generalized to the entire abdomen. At present, he states pain remains worst in the RUQ/RLQ and R flank. He noticed fever, chills and diarrhea prior to arrival in the ED and as pain intensified he came to the hospital for evaluation. He was last seen by our service in January 2017 at [facility] with similar presentation. At that time, ERCP was performed revealing multiple areas of biliary dilation/stricture concerning for possible underlying PSC. A covered metal stent was present in the CBD but had significant tissue ingrowth. Balloon sweep removed sludge. At present, patient is noted to have fever with Tmax 102F and a direct hyperbilirubinemia (T bili 5.1). PMHx: See HPI PSHx: Metal biliary stent placement 5+ years ago, R inguinal hernia repair FHx: Discussed with patient and denies any pertinent history Social: Previously heavy EtOH use, sober 2+ years; +Tobacco use >30 years; prior cocaine, ecstasy and marijuana use 12 system ROS performed and negative except where stated. Past Patient History - Past Medical History & Family History Past Medical History?: Yes - Past Social History Smoking Status: Heavy Smoker > 10 Cigarettes Daily - CARDIAC Hx Congestive Heart Failure: No - PULMONARY Hx Respiratory Disorders: No - NEUROLOGICAL Hx Neurological Disorder: Yes Hx Seizures: Yes (RELATED TO ETHO ABUSE ) - HEENT Hx HEENT Problems: No - RENAL Hx Chronic Kidney Disease: No - ENDOCRINE/METABOLIC Hx Endocrine Disorders: No - HEMATOLOGICAL/ONCOLOGICAL Hx Human Immunodeficiency Virus (HIV): No - INTEGUMENTARY Hx Dermatological Problems: No - MUSCULOSKELETAL/RHEUMATOLOGICAL Hx Musculoskeletal Disorders: Yes Hx Back Pain: Yes Hx Falls: No Hx Herniated Disk: Yes - GASTROINTESTINAL Hx Gastrointestinal Disorders: Yes Hx Gastritis: Yes Hx Pancreatitis: Yes - GENITOURINARY/GYNECOLOGICAL Hx Genitourinary Disorders: No - PSYCHIATRIC Hx Psychophysiologic Disorder: Yes Hx Anxiety: Yes Hx Depression: Yes Hx Substance Use: No - SURGICAL HISTORY Hx Surgeries: Yes Hx Bile Duct Stent: Yes (CBD STENT 2/3 YEARS AGO) Hx Herniorrhaphy: Yes - ANESTHESIA Hx Anesthesia: Yes Hx Anesthesia Reactions: No Hx Malignant Hyperthermia: No Has any member of the family had a problem w/ anesthesia?: No Meds Allergies/Adverse Reactions: Allergies Allergy/AdvReac Type Severity Reaction Status Date / Time No Known Allergies Allergy Verified 05/25/17 16:46 - Medications Medications: Current Medications Acetaminophen (Tylenol 325mg Tab) 650 mg PO Q4 PRN PRN Reason: Fever >100.4 F Last Admin: 05/26/17 12:05 Dose: 650 mg Chlordiazepoxide (Librium) 25 mg PO TID PRN PRN Reason: anxiety,alcohol withdrawal Last Admin: 05/27/17 09:30 Dose: 25 mg Enoxaparin Sodium (Lovenox) 40 mg SC DAILY [facility] Last Admin: 05/26/17 10:58 Dose: 40 mg Hydromorphone HCl (Dilaudid) 1 mg IVP Q8H PRN PRN Reason: Pain, severe (8-10) Metronidazole (Flagyl) 500 mg in 100 mls @ 100 mls/hr IVPB BID [facility] Last Admin: 05/27/17 10:08 Dose: 100 mls/hr Piperacillin Sod/Tazobactam (Sod 3.375 gm/ Sodium Chloride) 100 mls @ 100 mls/ hr IVPB Q8H [facility] Last Admin: 05/27/17 09:27 Dose: 100 mls/hr Indomethacin (Indocin Suppository) 100 mg NE ONCE ONE Stop: 05/27/17 12:02 Pantoprazole Sodium (Protonix Ec Tab) 40 mg PO DAILY [facility] Last Admin: 05/27/17 09:30 Dose: 40 mg Quetiapine Fumarate (Seroquel) 200 mg PO HS [facility] Last Admin: 05/26/17 21:14 Dose: 200 mg Results - Vital Signs Recent Vital Signs: Last Vital Signs Temp 99.5 F 05/27/17 08:26 Pulse 78 05/27/17 09:25 Resp 17 05/27/17 09:25 BP 115/78 05/27/17 09:25 Pulse Ox 97 05/27/17 09:25 - Labs Result Diagrams: 05/27/17 06:57 05/27/17 06:57 Labs: Laboratory Results - last 24 hr 05/26/17 05/26/1705/27/18 12:08 14:50 06:57 WBC 7.5 D RBC 4.30 L Hgb 13.3 Hct 38.8 MCV 90.1 MCH 30.8 MCHC 34.2 RDW 15.0 H Plt Count 73 L D MPV 10.2 Neut % (Auto) 83.8 H Lymph % (Auto) 8.[address] [place] % (Auto) 7.0 Eos % (Auto) 0.5 Baso % (Auto) 0.3 Neut # (Auto) 6.3 Lymph # (Auto) 0.[address] [place] # (Auto) 0.5 Eos # (Auto) 0.0 Baso # (Auto) 0.0 Neutrophils % (Manual) 85 H Band Neutrophils % 2 Lymphocytes % (Manual) 7 L Monocytes % (Manual) 6 Platelet Estimate Decreased L PT INR Sodium Potassium Chloride Carbon Dioxide Anion Gap BUN Creatinine Est GFR ( Amer) Est GFR (Non-Af Amer) Random Glucose Lactic Acid 1.3 1.1 Calcium Total Bilirubin AST ALT Alkaline Phosphatase Total Protein Albumin Globulin Albumin/Globulin Ratio 05/27/17 05/27/17 06:57 06:57 WBC RBC Hgb Hct MCV MCH MCHC RDW Plt Count MPV Neut % (Auto) Lymph % (Auto) [place] % (Auto) Eos % (Auto) Baso % (Auto) Neut # (Auto) Lymph # (Auto) [place] # (Auto) Eos # (Auto) Baso # (Auto) Neutrophils % (Manual) Band Neutrophils % Lymphocytes % (Manual) Monocytes % (Manual) Platelet Estimate PT 15.8 H INR 1.4 Sodium 141 Potassium 3.7 Chloride 108 H Carbon Dioxide 23 Anion Gap 14 BUN 11 Creatinine 0.7 L Est GFR ( Amer) > 60 Est GFR (Non-Af Amer) > 60 Random Glucose 120 H Lactic Acid Calcium 8.4 L Total Bilirubin 6.6 H AST 90 H D ALT 148 H D Alkaline Phosphatase 226 H D Total Protein 6.1 L Albumin 3.2 L Globulin 2.9 Albumin/Globulin Ratio 1.1
--- NOTE | 2017-05-27 15:30 | CP.PCM.PN ---
Subjective - Date & Time of Evaluation Date of Evaluation: 05/27/17 Time of Evaluation: 10:00 - Subjective Subjective: clinically same Objective - Vital Signs/Intake and Output Vital Signs (last 24 hours): Temp Pulse Resp BP Pulse Ox 99.5 F 78 17 115/78 97 05/27/17 08:26 05/27/17 09:25 05/27/17 09:25 05/27/17 09:25 05/27/17 09:25 Intake and Output: 05/27/17 05/27/17 06:59 18:59 Intake Total 650 100 Balance 650 100 - Medications Medications: Current Medications Acetaminophen (Tylenol 325mg Tab) 650 mg PO Q4 PRN PRN Reason: Fever >100.4 F Last Admin: 05/26/17 12:05 Dose: 650 mg Chlordiazepoxide (Librium) 25 mg PO TID PRN PRN Reason: anxiety,alcohol withdrawal Last Admin: 05/27/17 09:30 Dose: 25 mg Enoxaparin Sodium (Lovenox) 40 mg SC DAILY [facility] Last Admin: 05/26/17 10:58 Dose: 40 mg Hydromorphone HCl (Dilaudid) 1 mg IVP Q8H PRN PRN Reason: Pain, severe (8-10) Metronidazole (Flagyl) 500 mg in 100 mls @ 100 mls/hr IVPB BID [facility] Last Admin: 05/27/17 10:08 Dose: 100 mls/hr Piperacillin Sod/Tazobactam (Sod 3.375 gm/ Sodium Chloride) 100 mls @ 100 mls/ hr IVPB Q8H [facility] Last Admin: 05/27/17 09:27 Dose: 100 mls/hr Pantoprazole Sodium (Protonix Ec Tab) 40 mg PO DAILY [facility] Last Admin: 05/27/17 09:30 Dose: 40 mg Quetiapine Fumarate (Seroquel) 200 mg PO HS [facility] Last Admin: 05/26/17 21:14 Dose: 200 mg - Labs Labs: 05/27/17 06:57 05/27/17 06:57 PT 15.8 SECONDS (9.7-12.2) H 05/27/17 06:57 INR 1.4 05/27/17 06:57 - Constitutional Appears: Well - Head Exam Head Exam: ATRAUMATIC, NORMAL INSPECTION, NORMOCEPHALIC - Eye Exam Eye Exam: EOMI, Normal appearance, PERRL Pupil Exam: NORMAL ACCOMODATION, PERRL - ENT Exam ENT Exam: Mucous Membranes Moist, Normal Exam - Neck Exam Neck Exam: Full ROM, Normal Inspection. absent: Lymphadenopathy - Respiratory Exam Respiratory Exam: Decreased Breath Sounds - Cardiovascular Exam Cardiovascular Exam: REGULAR RHYTHM, +S1, +S2 - GI/Abdominal Exam GI & Abdominal Exam: Soft, Diminished Bowel Sounds - Rectal Exam Rectal Exam: Deferred
[2017-05-27 17:10] VITALS: RESP 20
--- NOTE | 2017-05-27 19:09 | CP.PCM.CON ---
History of Present Illness - History of Present Illness History of Present Illness: 56 y/o M w/ PMHx of cholangitis w/ ERCP and stenting, last in 01/2017, presents to the ED c/o abd pain x1day. Pain is similar to previous 2 episodes of ascending cholangitis. Pain localized to RUQ/epigastric region. Pain associated w/ nausea and dry heaves though pt denies actually vomiting. Pt also reports multiple episodes of green diarrhea and admits to subjective F/[employer] in the ED. Pt denies black stool or BRBPR. Pt is febrile in ED and found to have elevated LFTs and T. Bili. Surgery was consulted for suspected recurrent ascending cholangitis. PMHx: see above, EtOH dependence, seizures, gastritis, pancreatitis, anxiety, depression Meds: reviewed in chart. NKDA PSHx: ERCP w/ stenting, R inguinal hernia repair SHx: 1-1.5ppd x40yrs; stopped drinking 3yrs ago; denies drug use FHx: noncontributory Review of Systems - Review of Systems All systems: reviewed and no additional remarkable complaints except - Constitutional Constitutional: As Per HPI - EENT Eyes: absent: As Per HPI, Blind Spots, Blurred Vision, Change in Vision, Decreased Night Vision, Diplopia, Discharge, Dry Eye, Exophthalmos, Floaters, Irritation, Itchy Eyes, Loss of Peripheral Vision, Pain, Photophobia, Requires Corrective Lenses, Sees Flashes, Spots in Vision, Tunnel Vision, Other Visual Disturbances, Loss of Vision, Other Ears: absent: As Per HPI, Decreased Hearing, Ear Discharge, Ear Pain, Tinnitus, Abnormal Hearing, Disequilibrium, Dizziness, Other Nose/Mouth/Throat: absent: As Per HPI, Epistaxis, Nasal Congestion, Nasal Discharge, Nasal Obstruction, Nasal Trauma, Nose Pain, Post Nasal Drip, Sinus Pain, Sinus Pressure, Bleeding Gums, Change in Voice, Dental Pain, Dry Mouth, Dysphagia, Halitosis, Hoarsness, Lip Swelling, Mouth Lesions, Mouth Pain, Odynophagia, Sore Throat, Throat Swelling, Tongue Swelling, Facial Pain, Neck Pain, Neck Mass, Other - Cardiovascular Cardiovascular: absent: As Per HPI, Acrocyanosis, Chest Pain, Chest Pain at Rest , Chest Pain with Activity, Claudication, Diaphoresis, Dyspnea, Dyspnea on Exertion, Edema, Irregular Heart Rhythm, Pain Radiating to Arm/Neck/Jaw, Leg Edema, Leg Ulcers, Lightheadedness, Orthopnea, Palpitations, Paroxysmal Nocturnal Dyspnea, Pedal Edema, Radiating Pain, Rapid Heart Rate, Slow Heart Rate, Syncope, Other - Respiratory Respiratory: absent: As Per HPI, Cough, Dyspnea, Hemoptysis, Dyspnea on Exertion , Wheezing, Snoring, Stridor, Pain on Inspiration, Chest Congestion, Excessive Mucous Production, Change in Mucous Color, Pain with Coughing, Other - Gastrointestinal Gastrointestinal: As Per HPI - Genitourinary Genitourinary: absent: As Per HPI, Change in Urinary Stream, Difficulty Urinating, Dysuria, Flank Pain, Hematuria, Pyuria, Nocturia, Urinary Incontinence, Urinary Frequency, Urinary Hesitance, Urinary Urgency, Voiding Freq/Small Amts, Freq UTI, Hx Renal/Bladder Calculi, Hx /Renal Surgery, Bladder Distension, Other - Musculoskeletal Musculoskeletal: absent: As Per HPI, Abnormal Gait, Arthralgias, Atrophy, Back Pain, Deformity, Joint Swelling, Limited Range of Motion, Loss of Height, Muscle Cramps, Muscle Weakness, Myalgias, Neck Pain, Numbness, Radiating Pain into Limb, Stiffness, Tingling, Other - Integumentary Integumentary: absent: As Per HPI, Acne, Alopecia, Bleeding Lesions, Change in Hair, Change in Nails, Change in Pigmentation, Changing Lesions, Dry Skin, Erythema, Furuncle, Hirsutism, Lesions, New Lesions, Non-Healing Lesions, Photosensitivity, Pruritus, Rash, Skin Pain, Skin Ulcer, Sores, Striae, Swelling , Unusual Bruising, Wounds, Jaundice, Other - Neurological Neurological: absent: As Per HPI, Abnormal Gait, Abnormal Hearing, Abnormal Movements, Abnormal Speech, Behavioral Changes, Burning Sensations, Confusion, Convulsions, Disequilibrium, Dizziness, Numbness, Focal Weakness, Frequent Falls , Headaches, Lack of Coordination, Loss of Vision, Memory Loss, Paresthesias, Radicular Pain, Restless Legs, Sensory Deficit, Syncope, Tingling, Tremor, Vertigo, Weakness, Other Visual Disturbances, Other - Psychiatric Psychiatric: absent: As Per HPI, Abnormal Sleep Pattern, Anhedonia, Anxiety, Auditory Hallucinations, Behavioral Changes, Change in Appetite, Change in Libido, Confusion, Depression, Difficulty Concentrating, Hallucinations, Homicidal Ideation, Hopelessness, Irritability, Memory Loss, Mood Swings, Panic Attacks, Paranoia, Suicidal Ideation, Visual Hallucinations, Tactile Hallucinations, Other - Endocrine Endocrine: absent: As Per HPI, Change in Body Appearance, Change in Libido, Cold Intolorance, Deepening of Voice, Excessive Sweating, Fatigue, Flushing, Heat Intolorance, Increase in Ring/Shoe/Hat Size, Palpitations, Polydipsia, Polyphagia, Polyuria, Other - Hematologic/Lymphatic Hematologic: absent: As Per HPI, Easy Bleeding, Easy Bruising, Lymphadenopathy, Other Past Patient History - Past Medical History & Family History Past Medical History?: Yes - Past Social History Smoking Status: Heavy Smoker > 10 Cigarettes Daily - CARDIAC Hx Congestive Heart Failure: No - PULMONARY Hx Respiratory Disorders: No - NEUROLOGICAL Hx Neurological Disorder: Yes Hx Seizures: Yes (RELATED TO ETHO ABUSE ) - HEENT Hx HEENT Problems: No - RENAL Hx Chronic Kidney Disease: No - ENDOCRINE/METABOLIC Hx Endocrine Disorders: No - HEMATOLOGICAL/ONCOLOGICAL Hx Human Immunodeficiency Virus (HIV): No - INTEGUMENTARY Hx Dermatological Problems: No - MUSCULOSKELETAL/RHEUMATOLOGICAL Hx Musculoskeletal Disorders: Yes Hx Back Pain: Yes Hx Falls: No Hx Herniated Disk: Yes - GASTROINTESTINAL Hx Gastrointestinal Disorders: Yes Hx Gastritis: Yes Hx Pancreatitis: Yes - GENITOURINARY/GYNECOLOGICAL Hx Genitourinary Disorders: No - PSYCHIATRIC Hx Psychophysiologic Disorder: Yes Hx Anxiety: Yes Hx Depression: Yes Hx Substance Use: No - SURGICAL HISTORY Hx Surgeries: Yes Hx Bile Duct Stent: Yes (CBD STENT 2/3 YEARS AGO) Hx Herniorrhaphy: Yes - ANESTHESIA Hx Anesthesia: Yes Hx Anesthesia Reactions: No Hx Malignant Hyperthermia: No Has any member of the family had a problem w/ anesthesia?: No Meds Allergies/Adverse Reactions: Allergies Allergy/AdvReac Type Severity Reaction Status Date / Time No Known Allergies Allergy Verified 05/25/17 16:46 - Medications Medications: Current Medications Acetaminophen (Tylenol 325mg Tab) 650 mg PO Q4 PRN PRN Reason: Fever >100.4 F Last Admin: 05/26/17 12:05 Dose: 650 mg Chlordiazepoxide (Librium) 25 mg PO TID PRN PRN Reason: anxiety,alcohol withdrawal Last Admin: 05/27/17 09:30 Dose: 25 mg Enoxaparin Sodium (Lovenox) 40 mg SC DAILY [facility] Last Admin: 05/26/17 10:58 Dose: 40 mg Hydromorphone HCl (Dilaudid) 1 mg IVP Q8H PRN PRN Reason: Pain, severe (8-10) Piperacillin Sod/Tazobactam (Sod 3.375 gm/ Sodium Chloride) 100 mls @ 100 mls/ hr IVPB Q8H [facility] Last Admin: 05/27/17 09:27 Dose: 100 mls/hr Metronidazole (Flagyl) 500 mg in 100 mls @ 100 mls/hr IVPB Q12 [facility] Pantoprazole Sodium (Protonix Ec Tab) 40 mg PO DAILY [facility] Last Admin: 05/27/17 09:30 Dose: 40 mg Quetiapine Fumarate (Seroquel) 200 mg PO HS [facility] Last Admin: 05/26/17 21:14 Dose: 200 mg Physical Exam - Constitutional Appears: Non-toxic, Chronically Ill - Head Exam Head Exam: NORMOCEPHALIC - Eye Exam Eye Exam: PERRL. absent: Scleral icterus - ENT Exam ENT Exam: Mucous Membranes Dry - Neck Exam Neck exam: Negative for: Lymphadenopathy - Respiratory Exam Respiratory Exam: Decreased Breath Sounds, Clear to Auscultation Bilateral - Cardiovascular Exam Cardiovascular Exam: REGULAR RHYTHM, +S1, +S2 - GI/Abdominal Exam GI & Abdominal Exam: Diminished Bowel Sounds, Distended, Soft. absent: Rebound , Rigid, Tenderness - Rectal Exam Rectal Exam: Deferred - Exam Exam: NORMAL INSPECTION - Extremities Exam Extremities exam: Positive for: pedal pulses present. Negative for: calf tenderness, pedal edema, tenderness - Back Exam Back exam: absent: CVA tenderness (L), CVA tenderness (R) - Neurological Exam Neurological exam: Alert, CN II-XII Intact, Oriented x3, Reflexes Normal - Psychiatric Exam Psychiatric exam: Normal Mood - Skin Skin Exam: Dry, Intact Results - Vital Signs Recent Vital Signs: Last Vital Signs Temp 98.1 F 05/27/17 15:15 Pulse 73 05/27/17 15:15 Resp 20 05/27/17 15:15 BP 122/62 05/27/17 15:15 Pulse Ox 96 05/27/17 15:15 - Labs Result Diagrams: 05/27/17 06:57 05/27/17 06:57 Labs: Laboratory Results - last 24 hr 05/27/17 05/27/17 05/27/17 06:57 06:57 06:57 WBC 7.5 D RBC 4.30 L Hgb 13.3 Hct 38.8 MCV 90.1 MCH 30.8 MCHC 34.2 RDW 15.0 H Plt Count 73 L D MPV 10.2 Neut % (Auto) 83.8 H Lymph % (Auto) 8.4 L [place] % (Auto) 7.0 Eos % (Auto) 0.5 Baso % (Auto) 0.3 Neut # (Auto) 6.3 Lymph # (Auto) 0.6 L [place] # (Auto) 0.5 Eos # (Auto) 0.0 Baso # (Auto) 0.0 Neutrophils % (Manual) 85 H Band Neutrophils % 2 Lymphocytes % (Manual) 7 L Monocytes % (Manual) 6 Platelet Estimate Decreased L PT 15.8 H INR 1.4 Sodium 141 Potassium 3.7 Chloride 108 H Carbon Dioxide 23 Anion Gap 14 BUN 11 Creatinine 0.7 L Est GFR ( Amer) > 60 Est GFR (Non-Af Amer) > 60 Random Glucose 120 H Calcium 8.4 L Total Bilirubin 6.6 H AST 90 H D ALT 148 H D Alkaline Phosphatase 226 H D Total Protein 6.1 L Albumin 3.2 L Globulin 2.9 Albumin/Globulin Ratio 1.1 Assessment & Plan (1) Abdominal colic Status: Acute (2) Cholangitis Status: Acute (3) Abdominal pain Status: Acute (4) Abnormal liver function test Status: Acute (5) Sepsis Status: Acute - Assessment and Plan (Free Text) Assessment: ascending cholangitis w/o bacteremia for stent replacement cont iv rx for 7 days then PO
--- NOTE | 2017-05-27 19:17 | CP.PCM.PN ---
<Dejuan Grande - Last Filed: 05/27/17 19:14> Subjective - Date & Time of Evaluation Date of Evaluation: 05/27/17 Time of Evaluation: 13:00 - Subjective Subjective: General Surgery- Dr. Banuelos Patient seen and examined at bedside. GI has ERCP and stent replacement planned for today. No acute complaints. Deneis F/C CP/SOB N/V/D. currently NPO Objective - Vital Signs/Intake and Output Vital Signs (last 24 hours): Temp Pulse Resp BP Pulse Ox 98.1 F 73 20 122/62 96 05/27/17 15:15 05/27/17 15:15 05/27/17 15:15 05/27/17 15:15 05/27/17 15:15 Intake and Output: 05/27/17 05/28/17 18:59 06:59 Intake Total 420 Balance 420 - Medications Medications: Current Medications Acetaminophen (Tylenol 325mg Tab) 650 mg PO Q4 PRN PRN Reason: Fever >100.4 F Last Admin: 05/26/17 12:05 Dose: 650 mg Chlordiazepoxide (Librium) 25 mg PO TID PRN PRN Reason: anxiety,alcohol withdrawal Last Admin: 05/27/17 19:10 Dose: 25 mg Enoxaparin Sodium (Lovenox) 40 mg SC DAILY [facility] Last Admin: 05/26/17 10:58 Dose: 40 mg Hydromorphone HCl (Dilaudid) 1 mg IVP Q8H PRN PRN Reason: Pain, severe (8-10) Piperacillin Sod/Tazobactam (Sod 3.375 gm/ Sodium Chloride) 100 mls @ 100 mls/ hr IVPB Q8H [facility] Last Admin: 05/27/17 17:30 Dose: 100 mls/hr Metronidazole (Flagyl) 500 mg in 100 mls @ 100 mls/hr IVPB Q12 [facility] Pantoprazole Sodium (Protonix Ec Tab) 40 mg PO DAILY [facility] Last Admin: 05/27/17 09:30 Dose: 40 mg Quetiapine Fumarate (Seroquel) 200 mg PO HS [facility] Last Admin: 05/26/17 21:14 Dose: 200 mg - Labs Labs: 05/27/17 06:57 05/27/17 06:57 PT 15.8 SECONDS (9.7-12.2) H 02/28/18 06:57 INR 1.4 05/27/17 06:57 - Constitutional Appears: Non-toxic, No Acute Distress - Eye Exam Eye Exam: EOMI. absent: Scleral icterus - ENT Exam ENT Exam: Mucous Membranes Moist - Respiratory Exam Respiratory Exam: NORMAL BREATHING PATTERN. absent: Accessory Muscle Use, Respiratory Distress - Cardiovascular Exam Cardiovascular Exam: +S1, +S2. absent: Bradycardia, Tachycardia - GI/Abdominal Exam GI & Abdominal Exam: Soft. absent: Firm, Guarding, Rigid, Tenderness - Neurological Exam Neurological Exam: Alert, Awake, Oriented x3 - Skin Skin Exam: Warm Assessment and Plan - Assessment and Plan (Free Text) Assessment: 56M hx of etoh pancreatitis and biliary stent; current acute cholangitis Plan: - GI for ERCP today and biliary stent placement - abx therpay - no surgical intervention during this hospital visit - plan to follow up in 4-6 weeks for elective cholecystectomy - discussed w/ Dr. Banuelos surgical attending [facility] PGY1 <Drew Banuelos B - Last Filed: 05/29/17 15:01> Objective - Vital Signs/Intake and Output Vital Signs (last 24 hours): Temp Pulse Resp BP Pulse Ox 97.4 F L 74 20 120/79 95 05/28/17 08:57 05/28/17 08:57 05/28/17 08:57 05/28/17 08:57 05/28/17 08:57 - Labs Labs: 05/28/17 07:16 05/28/17 07:16 PT 15.8 SECONDS (9.7-12.2) H 05/27/17 06:57 INR 1.4 05/27/17 06:57 Attending/Attestation - Attestation I have personally seen and examined this patient.: Yes I have fully participated in the care of the patient.: Yes I have reviewed all pertinent clinical information, including history, physical exam and plan: Yes Notes (Text): Pt was seen and examined at beside Agree with above note and assessment Pt is s/p ERCP and stent removal Pt is asymptomatic Can be Dc home As per GI team, pt needs further work up for Sclerosing cholangitis f.u in office as out pt IV antibiotics Plan d.w pt in detail Risk and benefit explained in detail.
[2017-05-27] MEDS: HYDROmorphone 1 mg/ml ISec IVP PRN (19:36)
[2017-05-28] MEDS: Piperacillin/Tazobact 3.375 GM in Sodium Chloride 0.9% 100 ML IVPB SCH ×2 (01:22→08:46)
[2017-05-28 07:55] LABS: BASO % 0.2 % (0.0-2.0); EOS # 0.2 K/uL (0.0-0.7); EOS % 4.3 % (0.0-4.0); HEMOGLOBIN 13.2 g/dL (12.0-18.0); LYMPH # 0.6 K/uL (1.0-4.3); LYMPH % 11.9 % (20.0-40.0); MEAN CELL VOLUME 89.5 fL (80.0-94.0); MEAN CORPUSCULAR HEMOGLOBIN 30.5 pg (27.0-31.0); MEAN CORPUSCULAR HGB CONC 34.1 g/dL (33.0-37.0); MEAN PLATELET VOLUME 9.7 fL (7.2-11.7); MONO # 0.5 K/uL (0.0-0.8); MONO % 8.7 % (0.0-10.0); NEUT # 4.1 K/uL (1.8-7.0); NEUT % 74.9 % (50.0-75.0); RBC 4.33 Mil/uL (4.40-5.90); RED CELL DISTRIBUTION WIDTH 14.6 % (11.5-14.5); WHITE BLOOD COUNT 5.4 K/uL (4.8-10.8)
--- NOTE | 2017-05-28 08:22 | CP.PCM.PN ---
<Pedro Mallory - Last Filed: 05/28/17 08:26> Subjective - Date & Time of Evaluation Date of Evaluation: 05/28/17 Time of Evaluation: 06:20 - Subjective Subjective: PGY5 GI Fellow Progress Note Patient seen and examined bedside this morning. The patient states that he is feeling much better with significantly less abdominal pain at this time. He denies any nausea, vomiting, fever, chills. 12 system ROS performed and negative except where stated. Objective - Vital Signs/Intake and Output Vital Signs (last 24 hours): Temp Pulse Resp BP Pulse Ox 98.2 F 64 20 111/66 94 L 05/28/17 00:00 05/28/17 00:00 05/28/17 00:00 05/28/17 00:00 05/28/17 00:00 - Medications Medications: Current Medications Acetaminophen (Tylenol 325mg Tab) 650 mg PO Q4 PRN PRN Reason: Fever >100.4 F Last Admin: 05/26/17 12:05 Dose: 650 mg Chlordiazepoxide (Librium) 25 mg PO TID PRN PRN Reason: anxiety,alcohol withdrawal Last Admin: 05/27/17 19:10 Dose: 25 mg Enoxaparin Sodium (Lovenox) 40 mg SC DAILY [facility] Last Admin: 05/26/17 10:58 Dose: 40 mg Hydromorphone HCl (Dilaudid) 1 mg IVP Q8H PRN PRN Reason: Pain, severe (8-10) Last Admin: 05/27/17 19:36 Dose: 1 mg Piperacillin Sod/Tazobactam (Sod 3.375 gm/ Sodium Chloride) 100 mls @ 100 mls/ hr IVPB Q8H [facility] Last Admin: 05/28/17 01:22 Dose: 100 mls/hr Metronidazole (Flagyl) 500 mg in 100 mls @ 100 mls/hr IVPB Q12 [facility] Last Admin: 05/27/17 22:01 Dose: 100 mls/hr Pantoprazole Sodium (Protonix Ec Tab) 40 mg PO DAILY [facility] Last Admin: 05/27/17 09:30 Dose: 40 mg Quetiapine Fumarate (Seroquel) 200 mg PO HS [facility] Last Admin: 05/27/17 21:59 Dose: 200 mg - Labs Labs: 05/28/17 07:16 05/27/17 06:57 PT 15.8 SECONDS (9.7-12.2) H 05/27/17 06:57 INR 1.4 05/27/17 06:57 - Constitutional Appears: Non-toxic, No Acute Distress - Eye Exam Eye Exam: EOMI, PERRL - ENT Exam ENT Exam: Mucous Membranes Moist - Respiratory Exam Respiratory Exam: Clear to Ausculation Bilateral. absent: Rales, Rhonchi, Wheezes - Cardiovascular Exam Cardiovascular Exam: RRR, +S1, +S2 - GI/Abdominal Exam GI & Abdominal Exam: Soft, Normal Bowel Sounds. absent: Distended, Firm, Guarding, Rigid, Tenderness, Organomegaly - Extremities Exam Extremities Exam: Normal Inspection. absent: Pedal Edema - Neurological Exam Neurological Exam: Alert, Awake, Oriented x3 - Psychiatric Exam Psychiatric exam: Normal Affect, Normal Mood - Skin Skin Exam: Dry, Warm Assessment and Plan - Assessment and Plan (Free Text) Assessment: Patient is a 56 year old male with PMHx significant for recurrent cholangitis s/ p metal biliary stent placement >5 years ago, chronic pancreatitis 2/2 prior EtOH abuse, polysubstance abuse, anxiety/depression who presented to the ED with complaint of abdominal pain -Acute cholangitis s/p ERCP -Sepsis 2/2 above -Chronic pancreatitis -Prior polysubstance abuse Plan: -Cholangitis likely a result of overgrowth of biliary tissue in to the stent leading to occlusion -S/P ERCP with balloon sweep of CBD and placement of new [id number] fully covered metal stent within the previous metal stent -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 as etiology of biliary disese - however, all autoimmune markers negative to date (DIONNE, AMA, ANCA, IgM) -Recommend formal evaluation at [facility] for advanced liver/biliary care and transplant evaluation -Recommend follow up with surgery re: cholecystectomy -Advance diet as tolerated -Continue antibiotics for total of 2 weeks <Michael Ornelas - Last Filed: 05/28/17 13:05> Objective - Vital Signs/Intake and Output Vital Signs (last 24 hours): Temp Pulse Resp BP Pulse Ox 97.4 F L 74 20 120/79 95 05/28/17 08:57 05/28/17 08:57 05/28/17 08:57 05/28/17 08:57 05/28/17 08:57 - Medications Medications: Current Medications Acetaminophen (Tylenol 325mg Tab) 650 mg PO Q4 PRN PRN Reason: Fever >100.4 F Last Admin: 05/26/17 12:05 Dose: 650 mg Chlordiazepoxide (Librium) 25 mg PO TID PRN PRN Reason: anxiety,alcohol withdrawal Last Admin: 05/28/17 08:46 Dose: 25 mg Enoxaparin Sodium (Lovenox) 40 mg SC DAILY [facility] Last Admin: 05/26/17 10:58 Dose: 40 mg Hydromorphone HCl (Dilaudid) 1 mg IVP Q8H PRN PRN Reason: Pain, severe (8-10) Last Admin: 05/28/17 09:54 Dose: 1 mg Piperacillin Sod/Tazobactam (Sod 3.375 gm/ Sodium Chloride) 100 mls @ 100 mls/ hr IVPB Q8H [facility] Last Admin: 05/28/17 08:46 Dose: 100 mls/hr Metronidazole (Flagyl) 500 mg in 100 mls @ 100 mls/hr IVPB Q12 [facility] Last Admin: 05/28/17 09:53 Dose: 100 mls/hr Pantoprazole Sodium (Protonix Ec Tab) 40 mg PO DAILY [facility] Last Admin: 05/28/17 09:53 Dose: 40 mg Quetiapine Fumarate (Seroquel) 200 mg PO HS [facility] Last Admin: 05/27/17 21:59 Dose: 200 mg - Labs Labs: 05/28/17 07:16 05/28/17 07:16 PT 15.8 SECONDS (9.7-12.2) H 05/27/17 06:57 INR 1.4 05/27/17 06:57 Attending/Attestation - Attestation I have personally seen and examined this patient.: Yes I have fully participated in the care of the patient.: Yes I have reviewed all pertinent clinical information, including history, physical exam and plan: Yes Notes (Text): 05/28/17 13:02 I have seen and examined patient with GI fellow. No acute events overnight, he is seen resting in bed comfortably. He endorses mild epigastric discomfort but otherwise denies nausea, vomiting, fever/chills. Tolerating PO diet without difficulty. Review of vitals from today are normal. Chronic pancreatitis - prior ETOH abuse (patient reportedly sober for past 2 years) Abdominal pain, fever - acute cholangitis s/p ERCP with biliary stent placement ?PSC - Advance diet as tolerated - Continue with antibiotic therapy to complete 14 day course - LFTs trending down, monitor - Patient would benefit from tertiary care center referral for further evaluation of suspected PSC - Follow up surgical recommendations - No further planned GI interventions, will sign off case. Please reconsult as necessary, thank you.
[2017-05-28 08:58] VITALS: BP 120/79; PULSE 74; TEMP 97.4; O2SAT 95
--- NOTE | 2017-05-28 09:41 | RAD ---
PROCEDURE: HISTORY: As above COMPARISON: None TECHNIQUE: Total fluoroscopic time utilized during the procedure: 54.7 2nd ; 0.24024 mGy cm 2 FINDINGS: Submitted images from the current procedure: 7 Please refer to the physician's notes performing the procedure. IMPRESSION: Less than 1 hour fluoroscopic time utilized during performance of the procedure
[2017-05-28 09:50] LABS: ALB/GLOB RATIO 1.1 (1.0-2.1); ALBUMIN 3.1 g/dL (3.5-5.0); ALT/SGPT 108 U/L (21-72); AST/SGOT 56 U/L (17-59); BLOOD UREA NITROGEN 18 mg/dL (9-20); CALCIUM 8.2 mg/dl (8.6-10.4); GFR AFRICAN-AMERICAN > 60; GFR NON-AFRICAN AMERICAN > 60
[2017-05-28] MEDS: metroNIDAZOLE IV 500 mg/100 ml 500 MG/100 ML BAG IVPB SCH (09:53)
[2017-05-28] MEDS: Pantoprazole 40 mg EC Tab PO SCH (09:53)
[2017-05-28] MEDS: HYDROmorphone 1 mg/ml ISec IVP PRN (09:54)
--- NOTE | 2017-05-28 13:53 | CP.PCM.PN ---
Subjective - Date & Time of Evaluation Date of Evaluation: 05/28/17 Time of Evaluation: 08:20 - Subjective Subjective: clinically same Objective - Vital Signs/Intake and Output Vital Signs (last 24 hours): Temp Pulse Resp BP Pulse Ox 97.4 F L 74 20 120/79 95 05/28/17 08:57 05/28/17 08:57 05/28/17 08:57 05/28/17 08:57 05/28/17 08:57 - Medications Medications: Current Medications Acetaminophen (Tylenol 325mg Tab) 650 mg PO Q4 PRN PRN Reason: Fever >100.4 F Last Admin: 05/26/17 12:05 Dose: 650 mg Chlordiazepoxide (Librium) 25 mg PO TID PRN PRN Reason: anxiety,alcohol withdrawal Last Admin: 05/28/17 08:46 Dose: 25 mg Enoxaparin Sodium (Lovenox) 40 mg SC DAILY [facility] Last Admin: 05/26/17 10:58 Dose: 40 mg Hydromorphone HCl (Dilaudid) 1 mg IVP Q8H PRN PRN Reason: Pain, severe (8-10) Last Admin: 05/28/17 09:54 Dose: 1 mg Piperacillin Sod/Tazobactam (Sod 3.375 gm/ Sodium Chloride) 100 mls @ 100 mls/ hr IVPB Q8H [facility] Last Admin: 05/28/17 08:46 Dose: 100 mls/hr Metronidazole (Flagyl) 500 mg in 100 mls @ 100 mls/hr IVPB Q12 [facility] Last Admin: 05/28/17 09:53 Dose: 100 mls/hr Pantoprazole Sodium (Protonix Ec Tab) 40 mg PO DAILY [facility] Last Admin: 05/28/17 09:53 Dose: 40 mg Quetiapine Fumarate (Seroquel) 200 mg PO HS [facility] Last Admin: 05/27/17 21:59 Dose: 200 mg - Labs Labs: 05/28/17 07:16 05/28/17 07:16 PT 15.8 SECONDS (9.7-12.2) H 05/27/17 06:57 INR 1.4 05/27/17 06:57 - Constitutional Appears: Well - Head Exam Head Exam: ATRAUMATIC, NORMAL INSPECTION, NORMOCEPHALIC - Eye Exam Eye Exam: EOMI, Normal appearance, PERRL Pupil Exam: NORMAL ACCOMODATION, PERRL - ENT Exam ENT Exam: Mucous Membranes Moist, Normal Exam - Neck Exam Neck Exam: Full ROM, Normal Inspection. absent: Lymphadenopathy - Respiratory Exam Respiratory Exam: Decreased Breath Sounds - Cardiovascular Exam Cardiovascular Exam: REGULAR RHYTHM, +S1, +S2 - GI/Abdominal Exam GI & Abdominal Exam: Soft, Diminished Bowel Sounds - Rectal Exam Rectal Exam: Deferred
--- NOTE | 2017-05-28 15:23 | CP.PCM.PN ---
Subjective - Date & Time of Evaluation Date of Evaluation: 05/28/17 Time of Evaluation: 15:23 - Subjective Subjective: Awake,alert, no acute pain or distress. Objective - Vital Signs/Intake and Output Vital Signs (last 24 hours): Temp Pulse Resp BP Pulse Ox 97.4 F L 74 20 120/79 95 05/28/17 08:57 05/28/17 08:57 05/28/17 08:57 05/28/17 08:57 05/28/17 08:57 Intake and Output: 05/28/17 05/28/17 06:59 18:59 Intake Total 560 Balance 560 - Medications Medications: Current Medications Acetaminophen (Tylenol 325mg Tab) 650 mg PO Q4 PRN PRN Reason: Fever >100.4 F Last Admin: 05/26/17 12:05 Dose: 650 mg Chlordiazepoxide (Librium) 25 mg PO TID PRN PRN Reason: anxiety,alcohol withdrawal Last Admin: 05/28/17 08:46 Dose: 25 mg Enoxaparin Sodium (Lovenox) 40 mg SC DAILY [facility] Last Admin: 05/26/17 10:58 Dose: 40 mg Hydromorphone HCl (Dilaudid) 1 mg IVP Q8H PRN PRN Reason: Pain, severe (8-10) Last Admin: 05/28/17 09:54 Dose: 1 mg Piperacillin Sod/Tazobactam (Sod 3.375 gm/ Sodium Chloride) 100 mls @ 100 mls/ hr IVPB Q8H [facility] Last Admin: 05/28/17 08:46 Dose: 100 mls/hr Metronidazole (Flagyl) 500 mg in 100 mls @ 100 mls/hr IVPB Q12 [facility] Last Admin: 05/28/17 09:53 Dose: 100 mls/hr Pantoprazole Sodium (Protonix Ec Tab) 40 mg PO DAILY [facility] Last Admin: 05/28/17 09:53 Dose: 40 mg Quetiapine Fumarate (Seroquel) 200 mg PO HS [facility] Last Admin: 05/27/17 21:59 Dose: 200 mg - Labs Labs: 05/28/17 07:16 05/28/17 07:16 PT 15.8 SECONDS (9.7-12.2) H 05/27/17 06:57 INR 1.4 05/27/17 06:57 Assessment and Plan - Assessment and Plan (Free Text) Assessment: Patient is seen and examined. Tolerating diet, no acute abdominal pain or distress. Cleared by GI to go home on antibiotics for [address] Ivonne Valenzuela , discharge plan for today with cipro and flagyl by mouth for [address] Malik. Advised to f/u with PMD in 1 week, GI in 3 weeks. Advised to follow up this week with psyche to get psyche meds, given meds for 1 week supply.
[2017-05-28] MEDS ORDERED: Influenza Vaccine 60 mcg/0.5 mL SYR (4YR UP) IM ONE (15:36)
== END 2017-05-28 17:04 | disposition home or self-care (01) | DRG 557 ==
LOC: C.ER 16:29 → C.9E 05-26 00:02 → C.3T 05-26 15:11
PROVIDERS: ADMIT Internal Medicine Nephrology; ATTEND Internal Medicine Nephrology
PROC: 0FB98ZX Excision of Common Bile Duct, Via Natural or Artificial Opening Endoscopic, Diagnostic (ICD-10-PCS; 2017-05-27)
PROC: 0F798DZ Dilation of Common Bile Duct with Intraluminal Device, Via Natural or Artificial Opening Endoscopic (ICD-10-PCS; principal; 2017-05-27 07:44)
DX: K83.0 Cholangitis (principal); A41.9 Sepsis, unspecified organism; R56.9 Unspecified convulsions; F41.9 Anxiety disorder, unspecified; F32.9 Major depressive disorder, single episode, unspecified; F17.210 Nicotine dependence, cigarettes, uncomplicated; K86.0 Alcohol-induced chronic pancreatitis

== ENCOUNTER 2017-08-04 14:45 | Inpatient (IN) | payer MEDICAID ==
[2017-08-04 14:45] VITALS: BMI 29.7
[2017-08-04 16:07] LABS: BASO % 0.6 % (0.0-2.0); EOS % 0.2 % (0.0-4.0); LYMPH # 0.7 K/uL (1.0-4.3); LYMPH % 9.4 % (20.0-40.0); MEAN CELL VOLUME 90.3 fL (80.0-94.0); MEAN CORPUSCULAR HEMOGLOBIN 31.2 pg (27.0-31.0); MEAN CORPUSCULAR HGB CONC 34.6 g/dL (33.0-37.0); MEAN PLATELET VOLUME 10.2 fL (7.2-11.7); MONO # 0.5 K/uL (0.0-0.8); MONO % 6.6 % (0.0-10.0); NEUT # 6.2 K/uL (1.8-7.0); NEUT % 83.2 % (50.0-75.0); NRBC % 0.2 % (0.0-2.0); RBC 5.05 Mil/uL (4.40-5.90); WHITE BLOOD COUNT 7.4 K/uL (4.8-10.8)
[2017-08-04 16:12] LABS: HEMOGLOBIN 15.8 g/dL (12.0-18.0); PLATELET COUNT 90 K/uL (130-400)
[2017-08-04 16:19] LABS: CALCIUM 8.8 mg/dl (8.6-10.4); GFR AFRICAN-AMERICAN > 60; GFR NON-AFRICAN AMERICAN > 60; LIPASE 69 U/L (23-300)
[2017-08-04 16:21] LABS: ALB/GLOB RATIO 1.1 (1.0-2.1); ALBUMIN 4.1 g/dL (3.5-5.0); ALT/SGPT 85 U/L (21-72); AST/SGOT 113 U/L (17-59); BLOOD UREA NITROGEN 12 mg/dL (9-20)
[2017-08-04 16:31] LABS: BANDS 3 % (0-2); LARGE PLATELETS PRESENT; LYMPHOCYTE 10 % (20-40); MONOCYTE 5 % (0-10); NEUTROPHIL 82 % (50-75); PLATELET ESTIMATE DECREASED (NORMAL); TOTAL CELLS COUNTED 100
[2017-08-04] MEDS ORDERED: Sodium Chloride 0.9% 1,000 ML IV ONE (16:45)
--- NOTE | 2017-08-04 16:45 | C.PDOC ---
History Of Present Illness <Eleonora Cheng - Last Filed: 08/04/17 18:53> <Timmy Tomlinson - Last Filed: 08/04/17 22:57> 56 y/o male with history of pancreatitis, acute cholangitis, gastritis, presents to ED for evaluation epigastric pain associated with few episodes of non-bilious, non-bloody vomiting since yesterday. Patient admits, similar sx inpast ( gew months ago) when was diagnosed with " gallstones and told me its needs to be removed". Otherwise, Patient denies fever, chills, headache, dizziness, CP, SOB, dyspnea, diaphoresis, palpitation, abd. pain, nausea, vomiting, melena, hematoschezia, back pain, dysuria or any other complaints at this time. Ambulate to Ed for evaluation, not in any apparent distress. (Eleonora Cheng) History Per: Patient History/Exam Limitations: no limitations Onset/Duration Of Symptoms: Days Current Symptoms Are (Timing): Still Present Location Of Pain/Discomfort: Epigastric <Eleonora Cheng - Last Filed: 08/04/17 18:53> <Timmy Tomlinson - Last Filed: 08/04/17 22:57> Time Seen by Provider: 08/04/17 15:20 Chief Complaint (Nursing): Abdominal Pain Past Medical History Reviewed: Historical Data, Nursing Documentation, Vital Signs - Medical History PMH: Anxiety, Depression, Gastritis, Pancreatitis, Seizures (RELATED TO ETHO ABUSE ) Surgical History: Endoscopy Family History: States: No Known Family Hx - Social History Hx Alcohol Use: No (former etoh,) Hx Substance Use: No - Immunization History Hx Tetanus Toxoid Vaccination: No Hx Influenza Vaccination: No Hx Pneumococcal Vaccination: No <Eleonora Cheng - Last Filed: 08/04/17 18:53> Vital Signs: Last Vital Signs Temp 98.4 F 08/04/17 20:40 Pulse 72 08/04/17 20:40 Resp 18 08/04/17 20:40 BP 95/54 L 08/04/17 20:40 Pulse Ox 95 08/04/17 20:40 - [facility] Procedures DILATION OF COMMON BILE DUCT WITH INTRALUMINAL DEVICE, ENDO (05/26/17) EXCISION OF COMMON BILE DUCT, ENDO, DIAGN (05/26/17) EXTIRPATION OF MATTER FROM COMMON BILE DUCT, ENDO (01/30/17) EXTIRPATION OF MATTER FROM PANCREATIC DUCT, ENDO (01/30/17) PHERESIS OF PLATELETS, SINGLE (10/17/16) Review Of Systems Constitutional: Negative for: Fever, Chills Gastrointestinal: Positive for: Vomiting, Abdominal Pain. Negative for: Diarrhea Genitourinary: Negative for: Dysuria Skin: Negative for: Rash <Eleonora Cheng - Last Filed: 08/04/17 18:53> Physical Exam - Physical Exam Appears: Non-toxic, No Acute Distress Skin: Warm, Dry, No Rash Head: Normacephalic Eye(s): bilateral: PERRL Nose: No Flaring, No Discharge Oral Mucosa: Moist Throat: No Erythema, No Drooling Neck: Trachea Midline, Supple Cardiovascular: Rhythm Regular Respiratory: No Decreased Breath Sounds, No Rales, No Rhonchi, No Stridor, No Wheezing Gastrointestinal/Abdominal: Bowel Sounds (normal), Soft, Tenderness (Epigastric and RUQ, moderate), No Distention, No Guarding, No Rebound Back: No CVA Tenderness Extremity: Normal ROM, No Deformity, No Swelling Neurological/Psych: Oriented x3, Normal Speech, Normal Cognition <Eleonora Cheng - Last Filed: 08/04/17 18:53> ED Course And Treatment - Laboratory Results Result Diagrams: 08/04/17 16:03 08/04/17 16:03 O2 Sat by Pulse Oximetry: 99 (RA) Pulse Ox Interpretation: Normal Progress Note: Pt remained stable during the ED evaluation. On re-eval, afebrile, hemodynamicaly stable. NOn-toxic. ABd: benign, (-) guarding, (-) rebound. back: (-) CVA tenderness. Blood work review, mild elevation in Bili, LFTs, compare to previous visits and appears baseline. US- pending <Eleonora Cheng - Last Filed: 08/04/17 18:53> - Laboratory Results Result Diagrams: 08/04/17 16:03 08/04/17 16:03 <Timmy Tomlinson - Last Filed: 08/04/17 22:57> Disposition - Disposition Disposition Time: 18:49 <Eleonora Cheng - Last Filed: 08/04/17 18:53> Counseled Patient/Family Regarding: Diagnosis - POA Present On Arrival: None <Timmy Tomlinson - Last Filed: 08/04/17 22:57> - Disposition Referrals: [facility] [Outside] Condition: STABLE Prescriptions: Dicyclomine [Dicyclomine HCl] 10 mg PO QID #20 cap Instructions: Gastritis, Acute Abdomen (Belly Pain), Adult (DC) Forms: Rerecipe (Spanish) - Clinical Impression Clinical Impression: Gastritis, Abdominal pain - PA / SENIOR LABORATORY TECHNICIAN / Resident Statement MD/DO has reviewed & agrees with the documentation as recorded. - Scribe Statement The provider has reviewed the documentation as recorded by the Scribe <Eleonora Cheng - Last Filed: 08/04/17 18:53> <Timmy Tomlinson - Last Filed: 08/04/17 22:57> - Scribe Statement Wesley Salazar All medical record entries made by the Scribe were at my direction and personally dictated by me. I have reviewed the chart and agree that the record accurately reflects my personal performance of the history, physical exam, medical decision making, and the department course for this patient. I have also personally directed, reviewed, and agree with the discharge instructions and disposition. (Eleonora Cheng) Physician Patient Turnover Patient Signed Over To: Timmy Tomlinson Handoff Comments: US reports, re-eval, dispo <Eleonora Cheng - Last Filed: 08/04/17 18:53>
[2017-08-04] MEDS ORDERED: Sodium Chloride 0.9% 1,000 ML ONE (17:49)
[2017-08-04 17:50] LABS: AMYLASE 54 U/L (30-110)
[2017-08-04 18:27] LABS: SQUAMOUS EPITHIAL 1 /hpf (0-5); URINE BILIRUBIN NEGATIVE (NEGATIVE); URINE BLOOD NEGATIVE (NEGATIVE); URINE CLARITY Hazy (Clear); URINE COLOR Amber (YELLOW); URINE GLUCOSE (UA) NORMAL (Normal); URINE LEUKOCYTE ESTERASE TRACE Leu/uL (Negative); URINE PROTEIN 1+ mg/dL (NEGATIVE)
[2017-08-04 19:33] LABS: BARBITURATES, UR NEGATIVE (NEGATIVE); BENZODIAZEPINES, UR NEGATIVE (NEGATIVE); OPIATES, UR NEGATIVE (NEGATIVE); PHENCYCLIDINE, UR NEGATIVE (NEGATIVE)
[2017-08-04] MEDS ORDERED: Iohexol 240 (50 ml) PO ONE (23:00)
[2017-08-04] MEDS ORDERED: Iohexol 240 (50 ml) ONE (23:21)
[2017-08-05] MEDS ORDERED: Iodixanol 320 MG/ML 100 ML BOTTLE IV ONE (00:49)
--- NOTE | 2017-08-05 01:59 | CT ---
EXAM: CT Abdomen and Pelvis With Intravenous Contrast CLINICAL HISTORY: 56 years old, male; Pain; Abdominal pain; Patient HX: 01-31-17. Images sent; Additional info: Upper abd pain. Mildly dilated common bile duct on TECHNIQUE: Axial computed tomography images of the abdomen and pelvis with intravenous contrast. All CT scans at this facility use one or more dose reduction techniques, viz.: automated exposure control; ma/kV adjustment per patient size (including targeted exams where dose is matched to indication; i.e. head); or iterative reconstruction technique. Coronal and sagittal reformatted images were created and reviewed. CONTRAST: 100 mL of [id number] administered intravenously. COMPARISON: US - ABDOMEN LIMITED 2017-08-04 18:16 FINDINGS: Lung bases: Minimal atelectasis/scarring. ABDOMEN: Liver: Few probable cysts, up to 3.2 cm. Intrahepatic ductal dilatation. Extensive air within biliary tree. Gallbladder and bile ducts: No calcified gallstones. Stent within common bile duct. Air and mild peripheral soft tissue density within lumen of stent. Pancreas: Multiple calcifications within pancreas. Apparent minimal haziness about uncinate process of pancreas. Mild prominence of pancreatic duct. Spleen: Probable 1.8 cm cyst. Mildly enlarged, AP dimension. Adrenals: No mass. Kidneys and ureters: Too small to characterize lesion within RIGHT kidney. No hydronephrosis. Stomach and bowel: Few scattered diverticula within colon. No associated inflammatory stranding. No definite mural thickening. No obstruction. PELVIS: Appendix: Normal caliber. No inflammation. Bladder: Unremarkable. Reproductive: Mildly enlarged prostate. ABDOMEN and PELVIS: Intraperitoneal space: Trace free fluid within abdomen. Bones/joints: No acute fracture. Soft tissues: Unremarkable. Vasculature: Minimal atherosclerotic disease. No aneurysm. Multiple varices within upper abdomen. Nonvisualization of portal and splenic veins, likely chronically thrombosed. Lymph nodes: No pathologically enlarged lymph nodes. IMPRESSION: 1. Possible pancreatitis. Correlate with amylase/lipase levels. 2. Intrahepatic ductal dilatation with pneumobilia. Common bile duct stent with internal peripheral soft tissue density. Clinical correlation is needed. 3. Portal hypertension. 4. Incidental/non-acute findings are described above.
[2017-08-05] MEDS ORDERED: Piperacillin/Tazobact 3.375 gm 100 ML IVPB STA (03:40)
[2017-08-05] MEDS ORDERED: metroNIDAZOLE IV 500 mg/100 ml 500 MG/100 ML BAG IVPB SCH (03:45)
[2017-08-05] MEDS ORDERED: Piperacillin/Tazobact 3.375 gm 100 ML IVPB ONE (03:47)
[2017-08-05] MEDS ORDERED: metroNIDAZOLE IV 500 mg/100 ml 500 MG/100 ML BAG ONE (03:48)
[2017-08-05] MEDS ORDERED: Sodium Chloride 0.9% 1,000 ML ONE (09:03)
--- NOTE | 2017-08-05 09:03 | US ---
HISTORY: pain COMPARISON: None. TECHNIQUE: Sonographic evaluation of the right upper quadrant of the abdomen. FINDINGS: LIVER: Measures 17.1 cm in length. Normal echogenicity of the liver parenchyma. Subcapsular right hepatic lobe cyst measuring 2.9 x 2.4 x 3.1 cm. Pneumobilia. GALLBLADDER: Unremarkable. No gallstones. COMMON BILE DUCT: Measures 7 mm. Indwelling stent in place. No stones. PANCREAS: Not well-visualized. RIGHT KIDNEY: Measures 10.2 x 4.5 x 5.1 cm in length. Normal echogenicity. No calculus, mass, or hydronephrosis. AORTA: No aneurysmal dilatation. IVC: Unremarkable. OTHER FINDINGS: None . IMPRESSION: Pneumobilia and indwelling CBD stent, related to prior sphincterotomy.
--- NOTE | 2017-08-05 09:19 | RAD ---
HISTORY: baseline chest xray COMPARISON: No prior. FINDINGS: LUNGS: No active pulmonary disease. PLEURA: No significant pleural effusion identified, no pneumothorax apparent. CARDIOVASCULAR: Normal. OSSEOUS STRUCTURES: No significant abnormalities. VISUALIZED UPPER ABDOMEN: Normal. OTHER FINDINGS: None. IMPRESSION: No active disease.
[2017-08-05 09:24] LABS: INR 1.3; PROTHROMBIN TIME 14.4 SECONDS (9.7-12.2)
[2017-08-05] MEDS: Sodium Chloride 0.9% 1,000 ML IV SCH ×3 (09:25→23:45)
[2017-08-05] MEDS: Piperacill/Tazo 3.375gm in Dex 3.375 GM/50 ML BAG IVPB SCH ×2 (11:06→18:01)
--- NOTE | 2017-08-05 13:09 | CP.PCM.HP ---
Past Patient History - Past Medical History & Family History Past Medical History?: Yes - Past Social History Smoking Status: Heavy Smoker > 10 Cigarettes Daily - CARDIAC Hx Congestive Heart Failure: No - PULMONARY Hx Respiratory Disorders: No - NEUROLOGICAL Hx Seizures: Yes (RELATED TO ETHO ABUSE ) - HEENT Hx HEENT Problems: No - RENAL Hx Chronic Kidney Disease: No - ENDOCRINE/METABOLIC Hx Endocrine Disorders: No - HEMATOLOGICAL/ONCOLOGICAL Hx Human Immunodeficiency Virus (HIV): No - INTEGUMENTARY Hx Dermatological Problems: No - MUSCULOSKELETAL/RHEUMATOLOGICAL Hx Musculoskeletal Disorders: Yes Hx Back Pain: Yes Hx Falls: No Hx Herniated Disk: Yes - GASTROINTESTINAL Hx Gastritis: Yes Hx Pancreatitis: Yes - GENITOURINARY/GYNECOLOGICAL Hx Genitourinary Disorders: No - PSYCHIATRIC Hx Anxiety: Yes Hx Depression: Yes Hx Substance Use: No - SURGICAL HISTORY Hx Surgeries: Yes Hx Bile Duct Stent: Yes (CBD STENT 2/3 YEARS AGO) Hx Herniorrhaphy: Yes - ANESTHESIA Hx Anesthesia: Yes Hx Anesthesia Reactions: No Hx Malignant Hyperthermia: No Meds Allergies/Adverse Reactions: Allergies Allergy/AdvReac Type Severity Reaction Status Date / Time No Known Allergies Allergy Verified 08/04/17 14:54 Physical Exam - Constitutional Appears: Well - Head Exam Head Exam: ATRAUMATIC, NORMAL INSPECTION, NORMOCEPHALIC - Eye Exam Eye Exam: EOMI, Normal appearance, PERRL Pupil Exam: NORMAL ACCOMODATION, PERRL - ENT Exam ENT Exam: Mucous Membranes Moist, Normal Exam - Neck Exam Neck exam: Positive for: Normal Inspection - Respiratory Exam Respiratory Exam: Decreased Breath Sounds - Cardiovascular Exam Cardiovascular Exam: REGULAR RHYTHM, +S1, +S2 - GI/Abdominal Exam GI & Abdominal Exam: Diminished Bowel Sounds, Soft - Rectal Exam Rectal Exam: Deferred Results - Vital Signs Recent Vital Signs: Last Vital Signs Temp 98.5 F 08/05/17 07:31 Pulse 65 08/05/17 12:00 Resp 16 08/05/17 12:00 BP 106/58 L 08/05/17 12:00 Pulse Ox 99 08/05/17 12:00 - Labs Result Diagrams: 08/04/17 16:03 08/04/17 16:03 Labs: Laboratory Results - last 24 hr 08/04/17 08/04/17 08/04/17 16:03 16:03 17:25 WBC 7.4 RBC 5.05 Hgb 15.8 D Hct 45.6 MCV 90.3 MCH 31.2 H MCHC 34.6 RDW 14.0 Plt Count 90 L D MPV 10.2 Neut % (Auto) 83.2 H Lymph % (Auto) 9.4 L [place] % (Auto) 6.6 Eos % (Auto) 0.2 Baso % (Auto) 0.6 Neut # (Auto) 6.2 Lymph # (Auto) 0.7 L [place] # (Auto) 0.5 Eos # (Auto) 0.0 Baso # (Auto) 0.0 Neutrophils % (Manual) 82 H Band Neutrophils % 3 H Lymphocytes % (Manual) 10 L Monocytes % (Manual) 5 Platelet Estimate Decreased L Large Platelets Present PT INR Sodium 136 Potassium 5.4 H Chloride 102 Carbon Dioxide 26 Anion Gap 14 BUN 12 Creatinine 0.7 L Est GFR ( Amer) > 60 Est GFR (Non-Af Amer) > 60 Random Glucose 111 H Calcium 8.8 Total Bilirubin 2.0 H AST 113 H D ALT 85 H D Alkaline Phosphatase 226 H Total Protein 8.0 Albumin 4.1 Globulin 3.9 Albumin/Globulin Ratio 1.1 Amylase 54 Lipase 69 Urine Color Urine Clarity Urine pH Ur Specific [place] Urine Protein Urine Glucose (UA) Urine Ketones Urine Blood Urine Nitrate Urine Bilirubin Urine Urobilinogen Ur Leukocyte Esterase Urine WBC (Auto) Urine RBC (Auto) Ur Squamous Epith Cells Urine Opiates Screen Urine Methadone Screen Ur Barbiturates Screen Ur Phencyclidine Scrn Ur Amphetamines Screen U Benzodiazepines Scrn U Oth Cocaine Metabols U Cannabinoids Screen Alcohol, Quantitative < 10 08/04/17 08/04/17 08/05/17 18:06 18:09 09:12 WBC RBC Hgb Hct MCV MCH MCHC RDW Plt Count MPV Neut % (Auto) Lymph % (Auto) [place] % (Auto) Eos % (Auto) Baso % (Auto) Neut # (Auto) Lymph # (Auto) [place] # (Auto) Eos # (Auto) Baso # (Auto) Neutrophils % (Manual) Band Neutrophils % Lymphocytes % (Manual) Monocytes % (Manual) Platelet Estimate Large Platelets PT 14.4 H INR 1.3 Sodium Potassium Chloride Carbon Dioxide Anion Gap BUN Creatinine Est GFR ( Amer) Est GFR (Non-Af Amer) Random Glucose Calcium Total Bilirubin AST ALT Alkaline Phosphatase Total Protein Albumin Globulin Albumin/Globulin Ratio Amylase Lipase Urine Color [place] Urine Clarity Hazy Urine pH 5.0 Ur Specific [place] 1.030 Urine Protein 1+ H Urine Glucose (UA) Normal Urine Ketones Trace Urine Blood Negative Urine Nitrate Negative Urine Bilirubin Negative Urine Urobilinogen 2.0 Ur Leukocyte Esterase Trace Urine WBC (Auto) 5 Urine RBC (Auto) 3 Ur Squamous Epith Cells 1 Urine Opiates Screen Negative Urine Methadone Screen Negative Ur Barbiturates Screen Negative Ur Phencyclidine Scrn Negative Ur Amphetamines Screen Negative U Benzodiazepines Scrn Negative U Oth Cocaine Metabols Negative U Cannabinoids Screen Negative Alcohol, Quantitative
--- NOTE | 2017-08-05 13:30 | CP.PCM.CON ---
History of Present Illness - History of Present Illness History of Present Illness: General Surgery- Dr. Banuelos 56M hx of choalngitits s/p ERCP w/ stent for CBD stricture in CBD presents to ED w/ Right sided abdominal for 2 days. Asociated nausea, one episode of non- bloody, non-bilious vomiting. Patient states that pain medication in ER helped. Currently denies any pain. Of note, stent placed was a 10mm x 40mm, and follow up ERCP by GI team in one year. Patient admits to not following up w/ primary physican after last hospital visit. Denies current Fevers, chills, chest pain, shortness of breath, vomiting, diarrhea, numbness/tinglin in extremities, changes in bowel or bladder habits PMH: cholangitis w/ CBD stenet in 2017, ETOH dependence, seizures, gastritis, pancreatitis, anxiety, depression PSH: ERCP w/ stent, R. Inguinal hernia repair ALL: NKDA SocialHx: homeless, 1.5 ppd 40+ years, quiet etoh Review of Systems - Review of Systems All systems: reviewed and no additional remarkable complaints except - Constitutional Constitutional: As Per HPI - Cardiovascular Cardiovascular: absent: Chest Pain, Chest Pain at Rest - Respiratory Respiratory: absent: Cough, Dyspnea - Gastrointestinal Gastrointestinal: Abdominal Pain. absent: Belching, Bloating, Vomiting - Musculoskeletal Musculoskeletal: absent: Arthralgias, Atrophy, Back Pain - Neurological Neurological: absent: Memory Loss, Paresthesias - Endocrine Endocrine: absent: Deepening of Voice, Excessive Sweating, Polyuria - Hematologic/Lymphatic Hematologic: absent: Easy Bleeding Past Patient History - Past Medical History & Family History Past Medical History?: Yes - Past Social History Smoking Status: Heavy Smoker > 10 Cigarettes Daily - CARDIAC Hx Congestive Heart Failure: No - PULMONARY Hx Respiratory Disorders: No - NEUROLOGICAL Hx Seizures: Yes (RELATED TO ETHO ABUSE ) - HEENT Hx HEENT Problems: No - RENAL Hx Chronic Kidney Disease: No - ENDOCRINE/METABOLIC Hx Endocrine Disorders: No - HEMATOLOGICAL/ONCOLOGICAL Hx Human Immunodeficiency Virus (HIV): No - INTEGUMENTARY Hx Dermatological Problems: No - MUSCULOSKELETAL/RHEUMATOLOGICAL Hx Musculoskeletal Disorders: Yes Hx Back Pain: Yes Hx Falls: No Hx Herniated Disk: Yes - GASTROINTESTINAL Hx Gastritis: Yes Hx Pancreatitis: Yes - GENITOURINARY/GYNECOLOGICAL Hx Genitourinary Disorders: No - PSYCHIATRIC Hx Anxiety: Yes Hx Depression: Yes Hx Substance Use: No - SURGICAL HISTORY Hx Surgeries: Yes Hx Bile Duct Stent: Yes (CBD STENT 2/3 YEARS AGO) Hx Herniorrhaphy: Yes - ANESTHESIA Hx Anesthesia: Yes Hx Anesthesia Reactions: No Hx Malignant Hyperthermia: No Meds Allergies/Adverse Reactions: Allergies Allergy/AdvReac Type Severity Reaction Status Date / Time No Known Allergies Allergy Verified 08/04/17 14:54 - Medications Medications: Current Medications Clonazepam (Klonopin) 1 mg PO BID [facility] Last Admin: 08/05/17 09:44 Dose: 1 mg Metronidazole (Flagyl) 500 mg in 100 mls @ 100 mls/hr IVPB Q8 [facility] PRN Reason: Protocol Piperacillin Sod/Tazobactam Sod (Zosyn 3.375 Gm Iv Premix) 3.375 gm in 50 mls @ 100 mls/hr IVPB Q8H [facility] PRN Reason: Protocol Last Admin: 08/05/17 11:06 Dose: 100 mls/hr Sodium Chloride (Sodium Chloride 0.9%) 1,000 mls @ 125 mls/hr IV .Q8H [facility] Last Admin: 08/05/17 09:25 Dose: 125 mls/hr Ondansetron HCl (Zofran Inj) 4 mg IVP Q6H PRN PRN Reason: Nausea/Vomiting Quetiapine Fumarate (Seroquel) 200 mg PO HS [facility] Sertraline HCl (Zoloft) 25 mg PO DAILY [facility] Last Admin: 08/05/17 10:15 Dose: 25 mg Physical Exam - Constitutional Appears: Non-toxic, No Acute Distress - Eye Exam Eye Exam: EOMI - Respiratory Exam Respiratory Exam: NORMAL BREATHING PATTERN. absent: Accessory Muscle Use, Respiratory Distress - Cardiovascular Exam Cardiovascular Exam: +S1, +S2. absent: Bradycardia, Tachycardia - GI/Abdominal Exam GI & Abdominal Exam: Soft, Tenderness (Mid-epigastric, RUQ, RLQ) - Extremities Exam Extremities exam: Positive for: normal inspection. Negative for: calf tenderness - Back Exam Back exam: absent: CVA tenderness (L), CVA tenderness (R) - Neurological Exam Neurological exam: Alert, Oriented x3 - Psychiatric Exam Psychiatric exam: Normal Affect - Skin Skin Exam: Intact, Warm Results - Vital Signs Recent Vital Signs: Last Vital Signs Temp 98.5 F 08/05/17 07:31 Pulse 65 08/05/17 12:00 Resp 16 08/05/17 12:00 BP 106/58 L 08/05/17 12:00 Pulse Ox 99 08/05/17 12:00 - Labs Result Diagrams: 08/04/17 16:03 08/04/17 16:03 Labs: Laboratory Results - last 24 hr 08/04/17 08/04/17 08/04/17 16:03 16:03 17:25 WBC 7.4 RBC 5.05 Hgb 15.8 D Hct 45.6 MCV 90.3 MCH 31.2 H MCHC 34.6 RDW 14.0 Plt Count 90 L D MPV 10.2 Neut % (Auto) 83.2 H Lymph % (Auto) 9.4 L [place] % (Auto) 6.6 Eos % (Auto) 0.2 Baso % (Auto) 0.6 Neut # (Auto) 6.2 Lymph # (Auto) 0.7 L [place] # (Auto) 0.5 Eos # (Auto) 0.0 Baso # (Auto) 0.0 Neutrophils % (Manual) 82 H Band Neutrophils % 3 H Lymphocytes % (Manual) 10 L Monocytes % (Manual) 5 Platelet Estimate Decreased L Large Platelets Present PT INR Sodium 136 Potassium 5.4 H Chloride 102 Carbon Dioxide 26 Anion Gap 14 BUN 12 Creatinine 0.7 L Est GFR ( Amer) > 60 Est GFR (Non-Af Amer) > 60 Random Glucose 111 H Calcium 8.8 Total Bilirubin 2.0 H AST 113 H D ALT 85 H D Alkaline Phosphatase 226 H Total Protein 8.0 Albumin 4.1 Globulin 3.9 Albumin/Globulin Ratio 1.1 Amylase 54 Lipase 69 Urine Color Urine Clarity Urine pH Ur Specific [place] Urine Protein Urine Glucose (UA) Urine Ketones Urine Blood Urine Nitrate Urine Bilirubin Urine Urobilinogen Ur Leukocyte Esterase Urine WBC (Auto) Urine RBC (Auto) Ur Squamous Epith Cells Urine Opiates Screen Urine Methadone Screen Ur Barbiturates Screen Ur Phencyclidine Scrn Ur Amphetamines Screen U Benzodiazepines Scrn U Oth Cocaine Metabols U Cannabinoids Screen Alcohol, Quantitative < 10 08/04/17 08/04/17 08/05/17 18:06 18:09 09:12 WBC RBC Hgb Hct MCV MCH MCHC RDW Plt Count MPV Neut % (Auto) Lymph % (Auto) [place] % (Auto) Eos % (Auto) Baso % (Auto) Neut # (Auto) Lymph # (Auto) [place] # (Auto) Eos # (Auto) Baso # (Auto) Neutrophils % (Manual) Band Neutrophils % Lymphocytes % (Manual) Monocytes % (Manual) Platelet Estimate Large Platelets PT 14.4 H INR 1.3 Sodium Potassium Chloride Carbon Dioxide Anion Gap BUN Creatinine Est GFR ( Amer) Est GFR (Non-Af Amer) Random Glucose Calcium Total Bilirubin AST ALT Alkaline Phosphatase Total Protein Albumin Globulin Albumin/Globulin Ratio Amylase Lipase Urine Color [place] Urine Clarity Hazy Urine pH 5.0 Ur Specific [place] 1.030 Urine Protein 1+ H Urine Glucose (UA) Normal Urine Ketones Trace Urine Blood Negative Urine Nitrate Negative Urine Bilirubin Negative Urine Urobilinogen 2.0 Ur Leukocyte Esterase Trace Urine WBC (Auto) 5 Urine RBC (Auto) 3 Ur Squamous Epith Cells 1 Urine Opiates Screen Negative Urine Methadone Screen Negative Ur Barbiturates Screen Negative Ur Phencyclidine Scrn Negative Ur Amphetamines Screen Negative U Benzodiazepines Scrn Negative U Oth Cocaine Metabols Negative U Cannabinoids Screen Negative Alcohol, Quantitative Assessment & Plan - Assessment and Plan (Free Text) Assessment: 56M hx of CBD stent placement, w/ abdominal pain most likely 2/2 chronic pancreatitis Plan: - IVF - pain control PRN - HIDA scan, pending on location of stent can read as positive HIDA - recommend GI consult - no acute surgical intervention at this time - discussed w/ Dr. Banuelos surgical attending PGY1
--- NOTE | 2017-08-05 13:39 | CP.PCM.PN ---
Subjective - Date & Time of Evaluation Date of Evaluation: 08/05/17 Time of Evaluation: 09:00 - Subjective Subjective: PGY2 Resident - Medicine Progress Note This 56 y/o male with PMHx of cholangitis s/p metal biliary stent placement ( 2011, replaced 05/2017), chronic pancreatitis 2/2 prior EtOH abuse, gastritis, anxiety/depression - presents to the ED c/o epigastric pain associated with few episodes of non-bilious, non-bloody vomiting since yesterday. He is currently in no acute distress. This is his 3rd such episode since Jan 2017. At that time , he had an ERCP performed showing multiple areas of biliary dilation/stricture concerning for possible underlying PSC (however autoimmune testing has been negative). A covered metal stent was found in the CBD with significant tissue in growth. He was recently seen at [facility] in Apr 2017, GI placed a new metal stent within the old stent, and he was recommended to [facility] for advanced liver care/transplant evaluation (he never went). Surgery planned for a future elective cholesystectomy. Denies f/c, headache, dizziness, CP, SOB, dyspnea, diaphoresis, palpitation, abd. pain, hematoschezia. 12-point review of systems is otherwise negative without any additional acute complaints. PMHx: cholangitis s/p metal biliary stent placement (2011, replaced 05/2017), chronic pancreatitis 2/2 prior EtOH abuse, gastritis, anxiety/depression PSHx: Metal biliary stent placement 5+ years ago, R inguinal hernia repair FHx: Discussed with patient and denies any pertinent history Social: Previously heavy EtOH use, sober 2+ years; +Tobacco use >30 years; prior cocaine, ecstasy and marijuana use Objective - Vital Signs/Intake and Output Vital Signs (last 24 hours): Temp Pulse Resp BP Pulse Ox 98.5 F 65 16 106/58 L 99 08/05/17 07:31 08/05/17 12:00 08/05/17 12:00 08/05/17 12:00 08/05/17 12:00 - Medications Medications: Current Medications Clonazepam (Klonopin) 1 mg PO BID [facility] Last Admin: 08/05/17 09:44 Dose: 1 mg Metronidazole (Flagyl) 500 mg in 100 mls @ 100 mls/hr IVPB Q8 [facility] PRN Reason: Protocol Piperacillin Sod/Tazobactam Sod (Zosyn 3.375 Gm Iv Premix) 3.375 gm in 50 mls @ 100 mls/hr IVPB Q8H [facility] PRN Reason: Protocol Last Admin: 08/05/17 11:06 Dose: 100 mls/hr Sodium Chloride (Sodium Chloride 0.9%) 1,000 mls @ 125 mls/hr IV .Q8H [facility] Last Admin: 08/05/17 09:25 Dose: 125 mls/hr Ondansetron HCl (Zofran Inj) 4 mg IVP Q6H PRN PRN Reason: Nausea/Vomiting Quetiapine Fumarate (Seroquel) 200 mg PO HS [facility] Sertraline HCl (Zoloft) 25 mg PO DAILY [facility] Last Admin: 08/05/17 10:15 Dose: 25 mg - Labs Labs: 08/04/17 16:03 08/04/17 16:03 PT 14.4 SECONDS (9.7-12.2) H 08/05/17 09:12 INR 1.3 08/05/17 09:12 - Additional Findings Additional findings: - Constitutional Appears: Non-toxic, No Acute Distress - Eye Exam Eye Exam: EOMI - Respiratory Exam Respiratory Exam: NORMAL BREATHING PATTERN. absent: Accessory Muscle Use, Respiratory Distress - Cardiovascular Exam Cardiovascular Exam: Regular Rate, +S1, +S2. absent: Bradycardia, Tachycardia - GI/Abdominal Exam GI & Abdominal Exam: Soft, Tenderness (Mid-epigastric, RUQ, RLQ) - Extremities Exam Extremities exam: Positive for: normal inspection. Negative for: calf tenderness - Back Exam Back exam: absent: CVA tenderness (L), CVA tenderness (R) - Neurological Exam Neurological exam: Alert, Oriented x3 - Psychiatric Exam Psychiatric exam: Normal Affect, Normal mood - Skin Skin Exam: Intact, Warm, Dry Assessment and Plan - Assessment and Plan (Free Text) Assessment: Abdominal pain Tylenol 650mg PO q6H PRN, mild pain Toradol 30mg IVP q6H PRN, severe pain differential: chronic pancreatitis, vs pneumobilia, vs recurrent cholangitis Surgery consult, Dr. Banuelos, previously saw pt 04/2017 no acute surgical intervention at this time GI consult, Dr. Rodriguez/Johnson, previously saw pt 04/2017 - Abdominal US 08/04- Pneumobilia and indwelling CBD stent, related to prior sphincterotomy. - Abd/Pelv CT PO/IV contast 08/04- 1. Possible pancreatitis. Correlate with amylase/lipase levels. 2. Intrahepatic ductal dilatation with pneumobilia. Common bile duct stent with internal peripheral soft tissue density. Clinical correlation is needed. 3. Portal hypertension. 4. Incidental/non-acute findings are described above. HIDA scan 08/05 CXR 08/05- negative. Zofran 4mg IVP q6H PRN, N/V Flagyl 500mg IVPB q8H, start 08/05 Zosyn 3.375mg IVPB q8H, start 08/05 f/u HIDA scan, pending on location of stent can read as positive HIDA Pneumobilia - Abdominal US 08/04- Pneumobilia and indwelling CBD stent, related to prior sphincterotomy. - f/u GI / Surg recs Depression / Anxiety klonopin 1mg PO BID Zoloft 25mg PO qD Seroquel 200mg PO HS Prophylaxis SCDs Protonix 40mg IVP qD Heparin 5000u SC q12 Case discussed with attending. All medical management as per Dr. Ivonne Valenzuela.
[2017-08-05] MEDS: metroNIDAZOLE IV 500 mg/100 ml 500 MG/100 ML BAG IVPB SCH ×2 (14:27→21:09)
--- NOTE | 2017-08-05 16:04 | NM ---
PROCEDURE: Nuclear Medicine Hepatobiliary Scan HISTORY: r/o cholecystitis COMPARISON: August 04, 2017. Abdominal ultrasound. TECHNIQUE: 6.5 mCi of technetium 99m Mebrofenin was administered intravenously. Planar images of the abdomen were obtained at 5 min intervals to 60 mins. Delayed images were also obtained. FINDINGS: LIVER: Timely and homogenous uptake. COMMON BILE DUCT: identified at 20 mins. GALLBLADDER: Not identified on delayed images at 03:00 SMALL BOWEL: Identified at 20 mins. IMPRESSION: Positive Hepatobiliary Scan. The cystic duct is occluded presumptive evidence for acute cholecystitis.
--- NOTE | 2017-08-05 16:38 | CP.PCM.CON ---
History of Present Illness - History of Present Illness History of Present Illness: Initial PGY4 GI Consult Note Eitenne Hand is a 56 year old male with PMHx significant for recurrent cholangitis s/p metal biliary stent placement >5 years ago, chronic pancreatitis 2/2 prior EtOH abuse, polysubstance abuse, anxiety/depression who presented to the ED with complaint of abdominal pain. The patient states pain began yesterday morning in the epigastric and RUQ. He states that the pain was non-radiating. he graded the pain a 7 out of 10. He denies any aggravating factors but notes pain medications resolve the pain. He noticed fever, chills and diarrhea prior to arrival in the ED and as pain intensified he came to the hospital for evaluation. He was last seen by our service in 05/2017 at [facility]. He was found to have cholangitis likely 2/2 occluded metal stent that was replaced. He was also admitted in January 2017 at [facility] (formerly [facility]) with similar presentation. At that time, ERCP was performed revealing multiple areas of biliary dilation/stricture concerning for possible underlying PSC. A covered metal stent was present in the CBD but had significant tissue ingrowth. Balloon sweep removed sludge. A HIDA scan was performed and was positive, revealing acute cholecytitis vs cystic duct obstruction. PMHx: See HPI PSHx: Metal biliary stent placement 5+ years ago, R inguinal hernia repair FHx: Discussed with patient and denies any pertinent history Social: Previously heavy EtOH use, sober 2+ years; +Tobacco use >30 years; prior cocaine, ecstasy and marijuana use 12 system ROS performed and negative except where stated. Past Patient History - Past Medical History & Family History Past Medical History?: Yes - Past Social History Smoking Status: Heavy Smoker > 10 Cigarettes Daily - CARDIAC Hx Congestive Heart Failure: No - PULMONARY Hx Respiratory Disorders: No - NEUROLOGICAL Hx Seizures: Yes (RELATED TO ETHO ABUSE ) - HEENT Hx HEENT Problems: No - RENAL Hx Chronic Kidney Disease: No - ENDOCRINE/METABOLIC Hx Endocrine Disorders: No - HEMATOLOGICAL/ONCOLOGICAL Hx Human Immunodeficiency Virus (HIV): No - INTEGUMENTARY Hx Dermatological Problems: No - MUSCULOSKELETAL/RHEUMATOLOGICAL Hx Musculoskeletal Disorders: Yes Hx Back Pain: Yes Hx Falls: No Hx Herniated Disk: Yes - GASTROINTESTINAL Hx Gastritis: Yes Hx Pancreatitis: Yes - GENITOURINARY/GYNECOLOGICAL Hx Genitourinary Disorders: No - PSYCHIATRIC Hx Anxiety: Yes Hx Depression: Yes Hx Substance Use: No - SURGICAL HISTORY Hx Surgeries: Yes Hx Bile Duct Stent: Yes (CBD STENT 2/3 YEARS AGO) Hx Herniorrhaphy: Yes - ANESTHESIA Hx Anesthesia: Yes Hx Anesthesia Reactions: No Hx Malignant Hyperthermia: No Has any member of the family had a problem w/ anesthesia?: No Meds Allergies/Adverse Reactions: Allergies Allergy/AdvReac Type Severity Reaction Status Date / Time No Known Allergies Allergy Verified 08/04/17 14:54 - Medications Medications: Current Medications Clonazepam (Klonopin) 1 mg PO BID [facility] Last Admin: 08/05/17 09:44 Dose: 1 mg Heparin Sodium (Porcine) (Heparin) 5,000 units SC Q12 [facility] Metronidazole (Flagyl) 500 mg in 100 mls @ 100 mls/hr IVPB Q8 [facility] PRN Reason: Protocol Last Admin: 08/05/17 14:27 Dose: 100 mls/hr Piperacillin Sod/Tazobactam Sod (Zosyn 3.375 Gm Iv Premix) 3.375 gm in 50 mls @ 100 mls/hr IVPB Q8H [facility] PRN Reason: Protocol Last Admin: 08/05/17 11:06 Dose: 100 mls/hr Sodium Chloride (Sodium Chloride 0.9%) 1,000 mls @ 125 mls/hr IV .Q8H [facility] Last Admin: 08/05/17 09:25 Dose: 125 mls/hr Ondansetron HCl (Zofran Inj) 4 mg IVP Q6H PRN PRN Reason: Nausea/Vomiting Pantoprazole Sodium (Protonix Inj) 40 mg IVP DAILY [facility] Quetiapine Fumarate (Seroquel) 200 mg PO HS [facility] Sertraline HCl (Zoloft) 25 mg PO DAILY [facility] Last Admin: 08/05/17 10:15 Dose: 25 mg Physical Exam - Constitutional Appears: Well, No Acute Distress - Head Exam Head Exam: ATRAUMATIC, NORMOCEPHALIC - Eye Exam Eye Exam: Normal appearance - ENT Exam ENT Exam: Mucous Membranes Moist, Normal Exam - Neck Exam Neck exam: Positive for: Normal Inspection - Respiratory Exam Respiratory Exam: Clear to Auscultation Bilateral, NORMAL BREATHING PATTERN. absent: Rales, Rhonchi, Wheezes, Respiratory Distress - Cardiovascular Exam Cardiovascular Exam: REGULAR RHYTHM, +S1, +S2 - GI/Abdominal Exam GI & Abdominal Exam: Normal Bowel Sounds, Soft. absent: Distended, Firm, Guarding, Hernia, Organomegaly, Rebound, Rigid, Tenderness - Extremities Exam Extremities exam: Negative for: joint swelling, pedal edema - Neurological Exam Neurological exam: Alert, Oriented x3 - Psychiatric Exam Psychiatric exam: Normal Affect, Normal Mood - Skin Skin Exam: Dry, Intact, Normal Color, Warm Results - Vital Signs Recent Vital Signs: Last Vital Signs Temp 98.3 F 08/05/17 15:34 Pulse 72 08/05/17 15:34 Resp 20 08/05/17 15:34 BP 117/57 L 08/05/17 13:35 Pulse Ox 99 08/05/17 15:34 - Labs Result Diagrams: 08/04/17 16:03 08/04/17 16:03 Labs: Laboratory Results - last 24 hr 08/04/17 08/04/17 08/04/17 17:25 18:06 18:09 PT INR Amylase 54 Urine Color Connie Urine Clarity Hazy Urine pH 5.0 Ur Specific Gilliam 1.030 Urine Protein 1+ H Urine Glucose (UA) Normal Urine Ketones Trace Urine Blood Negative Urine Nitrate Negative Urine Bilirubin Negative Urine Urobilinogen 2.0 Ur Leukocyte Esterase Trace Urine WBC (Auto) 5 Urine RBC (Auto) 3 Ur Squamous Epith Cells 1 Urine Opiates Screen Negative Urine Methadone Screen Negative Ur Barbiturates Screen Negative Ur Phencyclidine Scrn Negative Ur Amphetamines Screen Negative U Benzodiazepines Scrn Negative U Oth Cocaine Metabols Negative U Cannabinoids Screen Negative Alcohol, Quantitative < 10 08/05/17 09:12 PT 14.4 H INR 1.3 Amylase Urine Color Urine Clarity Urine pH Ur Specific Gilliam Urine Protein Urine Glucose (UA) Urine Ketones Urine Blood Urine Nitrate Urine Bilirubin Urine Urobilinogen Ur Leukocyte Esterase Urine WBC (Auto) Urine RBC (Auto) Ur Squamous Epith Cells Urine Opiates Screen Urine Methadone Screen Ur Barbiturates Screen Ur Phencyclidine Scrn Ur Amphetamines Screen U Benzodiazepines Scrn U Oth Cocaine Metabols U Cannabinoids Screen Alcohol, Quantitative Assessment & Plan - Assessment and Plan (Free Text) Assessment: Etienne Hand is a 56 year old male with PMHx significant for recurrent cholangitis s/p metal biliary stent placement >5 years ago, chronic pancreatitis 2/2 prior EtOH abuse, polysubstance abuse, anxiety/depression who presented to the ED with complaint of abdominal pain -Acute Cholecystitis vs cystic duct obstruction -Chronic pancreatitis -Prior polysubstance abuse Plan: -continue antibiotics -S/P ERCP with balloon sweep of CBD and placement of new [id number] fully covered metal stent within the previous metal stent- 05/2017 -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 as etiology of biliary disese - however, all autoimmune markers negative to date (DIONNE, AMA, ANCA, IgM) -Recommend formal evaluation at [facility] for advanced liver/biliary care and transplant evaluation -not a surgical canidate as per surgery -Advance diet as tolerated -Continue antibiotics for total of 2 weeks D/W Dr. Ornelas
[2017-08-06] MEDS: Piperacill/Tazo 3.375gm in Dex 3.375 GM/50 ML BAG IVPB SCH ×3 (02:00→18:59)
[2017-08-06] MEDS: metroNIDAZOLE IV 500 mg/100 ml 500 MG/100 ML BAG IVPB SCH ×3 (05:20→21:24)
--- NOTE | 2017-08-06 07:43 | CP.PCM.CON ---
History of Present Illness - History of Present Illness History of Present Illness: PGY 4 Inital GI Consult Past Patient History - Past Medical History & Family History Past Medical History?: Yes - Past Social History Smoking Status: Heavy Smoker > 10 Cigarettes Daily - CARDIAC Hx Congestive Heart Failure: No - PULMONARY Hx Respiratory Disorders: No - NEUROLOGICAL Hx Seizures: Yes (RELATED TO ETHO ABUSE ) - HEENT Hx HEENT Problems: No - RENAL Hx Chronic Kidney Disease: No - ENDOCRINE/METABOLIC Hx Endocrine Disorders: No - HEMATOLOGICAL/ONCOLOGICAL Hx Human Immunodeficiency Virus (HIV): No - INTEGUMENTARY Hx Dermatological Problems: No - MUSCULOSKELETAL/RHEUMATOLOGICAL Hx Musculoskeletal Disorders: Yes Hx Back Pain: Yes Hx Falls: No Hx Herniated Disk: Yes - GASTROINTESTINAL Hx Gastritis: Yes Hx Pancreatitis: Yes - GENITOURINARY/GYNECOLOGICAL Hx Genitourinary Disorders: No - PSYCHIATRIC Hx Anxiety: Yes Hx Depression: Yes Hx Substance Use: No - SURGICAL HISTORY Hx Surgeries: Yes Hx Bile Duct Stent: Yes (CBD STENT 2/3 YEARS AGO) Hx Herniorrhaphy: Yes - ANESTHESIA Hx Anesthesia: Yes Hx Anesthesia Reactions: No Hx Malignant Hyperthermia: No Has any member of the family had a problem w/ anesthesia?: No Meds Allergies/Adverse Reactions: Allergies Allergy/AdvReac Type Severity Reaction Status Date / Time No Known Allergies Allergy Verified 08/04/17 14:54 - Medications Medications: Current Medications Acetaminophen (Tylenol 325mg Tab) 650 mg PO Q6 PRN PRN Reason: Pain, Mild (1-3) Clonazepam (Klonopin) 1 mg PO BID [facility] Last Admin: 08/05/17 18:01 Dose: 1 mg Heparin Sodium (Porcine) (Heparin) 5,000 units SC Q12 [facility] Last Admin: 08/05/17 21:10 Dose: 5,000 units Metronidazole (Flagyl) 500 mg in 100 mls @ 100 mls/hr IVPB Q8 [facility] PRN Reason: Protocol Last Admin: 08/06/17 05:20 Dose: 100 mls/hr Piperacillin Sod/Tazobactam Sod (Zosyn 3.375 Gm Iv Premix) 3.375 gm in 50 mls @ 100 mls/hr IVPB Q8H [facility] PRN Reason: Protocol Last Admin: 08/06/17 02:00 Dose: 100 mls/hr Sodium Chloride (Sodium Chloride 0.9%) 1,000 mls @ 125 mls/hr IV .Q8H [facility] Last Admin: 08/05/17 23:45 Dose: Not Given Ketorolac Tromethamine (Toradol) 30 mg IVP Q6 PRN PRN Reason: Pain, severe (8-10) Ondansetron HCl (Zofran Inj) 4 mg IVP Q6H PRN PRN Reason: Nausea/Vomiting Pantoprazole Sodium (Protonix Inj) 40 mg IVP DAILY [facility] Quetiapine Fumarate (Seroquel) 200 mg PO HS [facility] Last Admin: 08/05/17 21:10 Dose: 200 mg Sertraline HCl (Zoloft) 25 mg PO DAILY [facility] Last Admin: 08/05/17 10:15 Dose: 25 mg Results - Vital Signs Recent Vital Signs: Last Vital Signs Temp 98.2 F 08/05/17 23:00 Pulse 67 08/05/17 23:00 Resp 20 08/05/17 23:00 BP 90/48 L 08/05/17 23:00 Pulse Ox 97 08/05/17 23:00 - Labs Result Diagrams: 08/04/17 16:03 08/04/17 16:03 Labs: Laboratory Results - last 24 hr 08/05/17 09:12 PT 14.4 H INR 1.3
[2017-08-06 08:04] LABS: BASO % 0.8 % (0.0-2.0); EOS % 1.1 % (0.0-4.0); LYMPH # 0.6 K/uL (1.0-4.3); LYMPH % 19.5 % (20.0-40.0); MEAN CELL VOLUME 89.2 fL (80.0-94.0); MEAN CORPUSCULAR HEMOGLOBIN 31.6 pg (27.0-31.0); MEAN CORPUSCULAR HGB CONC 35.4 g/dL (33.0-37.0); MEAN PLATELET VOLUME 10.4 fL (7.2-11.7); MONO # 0.5 K/uL (0.0-0.8); NEUT % 63.6 % (50.0-75.0); NRBC % 0.2 % (0.0-2.0); RBC 4.45 Mil/uL (4.40-5.90); RED CELL DISTRIBUTION WIDTH 13.8 % (11.5-14.5)
[2017-08-06 08:24] LABS: WHITE BLOOD COUNT 3.2 K/uL (4.8-10.8)
[2017-08-06 08:26] LABS: ALB/GLOB RATIO 1.2 (1.0-2.1); ALBUMIN 3.2 g/dL (3.5-5.0); ALT/SGPT 113 U/L (21-72); AST/SGOT 87 U/L (17-59); BLOOD UREA NITROGEN 8 mg/dL (9-20); CALCIUM 8.2 mg/dl (8.6-10.4); GFR AFRICAN-AMERICAN > 60; GFR NON-AFRICAN AMERICAN > 60; LIPASE 80 U/L (23-300)
[2017-08-06] MEDS: Sodium Chloride 0.9% 1,000 ML IV SCH ×3 (09:12→16:56)
--- NOTE | 2017-08-06 09:25 | CP.PCM.PN ---
Subjective - Date & Time of Evaluation Date of Evaluation: 08/06/17 Time of Evaluation: 06:45 - Subjective Subjective: Surgery- Dr. Banuelos patient seen and examined at bedside this morning. No acute events overnight. nursing notes reviewed. Pain is better than yesterday. pain localized in mid- epigastrum. + flatus and BM. denies current nausea, vomiting, chest pain, shortness of breath. Objective - Vital Signs/Intake and Output Vital Signs (last 24 hours): Temp Pulse Resp BP Pulse Ox 98.1 F 71 18 110/73 96 08/06/17 07:00 08/06/17 07:00 08/06/17 07:00 08/06/17 07:00 08/06/17 07:00 Intake and Output: 08/06/17 08/06/17 06:59 18:59 Intake Total 1755 Balance 1755 - Medications Medications: Current Medications Acetaminophen (Tylenol 325mg Tab) 650 mg PO Q6 PRN PRN Reason: Pain, Mild (1-3) Clonazepam (Klonopin) 1 mg PO BID [facility] Last Admin: 08/06/17 09:07 Dose: 1 mg Heparin Sodium (Porcine) (Heparin) 5,000 units SC Q12 [facility] Last Admin: 08/06/17 09:08 Dose: 5,000 units Metronidazole (Flagyl) 500 mg in 100 mls @ 100 mls/hr IVPB Q8 [facility] PRN Reason: Protocol Last Admin: 08/06/17 05:20 Dose: 100 mls/hr Piperacillin Sod/Tazobactam Sod (Zosyn 3.375 Gm Iv Premix) 3.375 gm in 50 mls @ 100 mls/hr IVPB Q8H [facility] PRN Reason: Protocol Last Admin: 08/06/17 02:00 Dose: 100 mls/hr Sodium Chloride (Sodium Chloride 0.9%) 1,000 mls @ 125 mls/hr IV .Q8H [facility] Last Admin: 08/06/17 09:12 Dose: Not Given Ketorolac Tromethamine (Toradol) 30 mg IVP Q6 PRN PRN Reason: Pain, severe (8-10) Ondansetron HCl (Zofran Inj) 4 mg IVP Q6H PRN PRN Reason: Nausea/Vomiting Pantoprazole Sodium (Protonix Inj) 40 mg IVP DAILY [facility] Last Admin: 08/06/17 09:07 Dose: 40 mg Quetiapine Fumarate (Seroquel) 200 mg PO HS [facility] Last Admin: 08/05/17 21:10 Dose: 200 mg Sertraline HCl (Zoloft) 25 mg PO DAILY [facility] Last Admin: 08/06/17 09:07 Dose: 25 mg - Labs Labs: 08/06/17 07:57 08/06/17 07:57 PT 14.4 SECONDS (9.7-12.2) H 08/05/17 09:12 INR 1.3 08/05/17 09:12 APTT 33 SECONDS (21-34) 08/06/17 07:57 - Constitutional Appears: Non-toxic, No Acute Distress - Head Exam Head Exam: ATRAUMATIC - Eye Exam Eye Exam: EOMI. absent: Scleral icterus - ENT Exam ENT Exam: Mucous Membranes Moist - Respiratory Exam Respiratory Exam: NORMAL BREATHING PATTERN. absent: Accessory Muscle Use, Respiratory Distress - Cardiovascular Exam Cardiovascular Exam: +S1, +S2. absent: Bradycardia, Tachycardia - GI/Abdominal Exam GI & Abdominal Exam: Soft, Tenderness (tender to deep palpation in mid- epigastrum). absent: Distended, Firm, Guarding, Rigid - Extremities Exam Extremities Exam: Normal Inspection. absent: Calf Tenderness - Neurological Exam Neurological Exam: Alert, Awake, Oriented x3 - Psychiatric Exam Psychiatric exam: Normal Affect - Skin Skin Exam: Intact, Warm Assessment and Plan - Assessment and Plan (Free Text) Assessment: 56M w/ pmhx of cholangitis, alchohol dependence, chronic pancreatitis w/ CBD stent, w/ mid-epigastric abdominal pain 2/2 chronic pancreatitis HIDA can be false positive due to CBD stent. Abdominal pain most likely chronic pancreatitis Discussed case with GI team who agrees Plan: no acute surgical intervention indicated at this time advance diet as tolerated will d/w Dr. Banuelos surgical attending PGY1
--- NOTE | 2017-08-06 10:35 | CP.PCM.CON ---
<Loida Valenzuela - Last Filed: 08/06/17 14:10> History of Present Illness - History of Present Illness History of Present Illness: Initial PGY4 GI Consult Note a 56 year old male with PMHx significant for recurrent cholangitis s/p metal biliary stent placement >5 years ago, chronic pancreatitis 2/2 prior EtOH abuse , polysubstance abuse, anxiety/depression who presented to the ED with complaint of abdominal pain. The patient states pain began yesterday morning in the epigastric and RUQ. He states that the pain was non-radiating. he graded the pain a 7 out of 10. He denies any aggravating factors but notes pain medications resolve the pain. He noticed fever, chills and diarrhea prior to arrival in the ED and as pain intensified he came to the hospital for evaluation. He was last seen by our service in 05/2017 at [facility]. He was found to have cholangitis likely 2/2 occluded metal stent that was replaced. He was also admitted in January 2017 at [facility] with similar presentation. At that time , ERCP was performed revealing multiple areas of biliary dilation/stricture concerning for possible underlying PSC. A covered metal stent was present in the CBD but had significant tissue ingrowth. Balloon sweep removed sludge. A HIDA scan was performed and was positive, revealing acute cholecytitis vs cystic duct obstruction. PMHx: See HPI PSHx: Metal biliary stent placement 5+ years ago, R inguinal hernia repair FHx: Discussed with patient and denies any pertinent history Social: Previously heavy EtOH use, sober 2+ years; +Tobacco use >30 years; prior cocaine, ecstasy and marijuana use 12 system ROS performed and negative except where stated. Past Patient History - Past Medical History & Family History Past Medical History?: Yes - Past Social History Smoking Status: Heavy Smoker > 10 Cigarettes Daily - CARDIAC Hx Congestive Heart Failure: No - PULMONARY Hx Respiratory Disorders: No - NEUROLOGICAL Hx Seizures: Yes (RELATED TO ETHO ABUSE ) - HEENT Hx HEENT Problems: No - RENAL Hx Chronic Kidney Disease: No - ENDOCRINE/METABOLIC Hx Endocrine Disorders: No - HEMATOLOGICAL/ONCOLOGICAL Hx Human Immunodeficiency Virus (HIV): No - INTEGUMENTARY Hx Dermatological Problems: No - MUSCULOSKELETAL/RHEUMATOLOGICAL Hx Musculoskeletal Disorders: Yes Hx Back Pain: Yes Hx Falls: No Hx Herniated Disk: Yes - GASTROINTESTINAL Hx Gastritis: Yes Hx Pancreatitis: Yes - GENITOURINARY/GYNECOLOGICAL Hx Genitourinary Disorders: No - PSYCHIATRIC Hx Anxiety: Yes Hx Depression: Yes Hx Substance Use: No - SURGICAL HISTORY Hx Surgeries: Yes Hx Bile Duct Stent: Yes (CBD STENT 2/3 YEARS AGO) Hx Herniorrhaphy: Yes - ANESTHESIA Hx Anesthesia: Yes Hx Anesthesia Reactions: No Hx Malignant Hyperthermia: No Has any member of the family had a problem w/ anesthesia?: No Meds Allergies/Adverse Reactions: Allergies Allergy/AdvReac Type Severity Reaction Status Date / Time No Known Allergies Allergy Verified 08/04/17 14:54 - Medications Medications: Current Medications Acetaminophen (Tylenol 325mg Tab) 650 mg PO Q6 PRN PRN Reason: Pain, Mild (1-3) Clonazepam (Klonopin) 1 mg PO BID [facility] Last Admin: 08/06/17 09:07 Dose: 1 mg Heparin Sodium (Porcine) (Heparin) 5,000 units SC Q12 [facility] Last Admin: 08/06/17 09:08 Dose: 5,000 units Metronidazole (Flagyl) 500 mg in 100 mls @ 100 mls/hr IVPB Q8 [facility] PRN Reason: Protocol Last Admin: 08/06/17 05:20 Dose: 100 mls/hr Piperacillin Sod/Tazobactam Sod (Zosyn 3.375 Gm Iv Premix) 3.375 gm in 50 mls @ 100 mls/hr IVPB Q8H [facility] PRN Reason: Protocol Last Admin: 08/06/17 10:17 Dose: 100 mls/hr Sodium Chloride (Sodium Chloride 0.9%) 1,000 mls @ 125 mls/hr IV .Q8H [facility] Last Admin: 08/06/17 09:12 Dose: Not Given Ketorolac Tromethamine (Toradol) 30 mg IVP Q6 PRN PRN Reason: Pain, severe (8-10) Ondansetron HCl (Zofran Inj) 4 mg IVP Q6H PRN PRN Reason: Nausea/Vomiting Pantoprazole Sodium (Protonix Inj) 40 mg IVP DAILY [facility] Last Admin: 08/06/17 09:07 Dose: 40 mg Quetiapine Fumarate (Seroquel) 200 mg PO HS [facility] Last Admin: 08/05/17 21:10 Dose: 200 mg Sertraline HCl (Zoloft) 25 mg PO DAILY [facility] Last Admin: 08/06/17 09:07 Dose: 25 mg Physical Exam - Constitutional Appears: Well, No Acute Distress - Head Exam Head Exam: ATRAUMATIC, NORMOCEPHALIC - Eye Exam Eye Exam: Normal appearance - ENT Exam ENT Exam: Mucous Membranes Moist, Normal Exam - Neck Exam Neck exam: Positive for: Normal Inspection - Respiratory Exam Respiratory Exam: Clear to Auscultation Bilateral, NORMAL BREATHING PATTERN. absent: Rales, Rhonchi, Wheezes, Respiratory Distress - Cardiovascular Exam Cardiovascular Exam: REGULAR RHYTHM, +S1, +S2 - GI/Abdominal Exam GI & Abdominal Exam: Normal Bowel Sounds, Soft. absent: Diminished Bowel Sounds , Distended, Firm, Guarding, Hernia, Rebound, Rigid, Tenderness - Extremities Exam Extremities exam: Negative for: joint swelling, pedal edema - Neurological Exam Neurological exam: Alert, Oriented x3 - Psychiatric Exam Psychiatric exam: Normal Affect, Normal Mood - Skin Skin Exam: Dry, Intact, Normal Color, Warm Results - Vital Signs Recent Vital Signs: Last Vital Signs Temp 98.1 F 08/06/17 07:00 Pulse 71 08/06/17 07:00 Resp 18 08/06/17 07:00 BP 110/73 08/06/17 07:00 Pulse Ox 96 08/06/17 07:00 - Labs Result Diagrams: 08/06/17 07:57 08/06/17 07:57 Labs: Laboratory Results - last 24 hr 08/06/17 08/06/17 08/06/17 07:57 07:57 07:57 WBC 3.2 L D RBC 4.45 Hgb 14.0 Hct 39.7 MCV 89.2 MCH 31.6 H MCHC 35.4 RDW 13.8 Plt Count 61 L D MPV 10.4 Neut % (Auto) 63.6 Lymph % (Auto) 19.5 L Warrick % (Auto) 15.0 H Eos % (Auto) 1.1 Baso % (Auto) 0.8 Neut # (Auto) 2.0 Lymph # (Auto) 0.6 L Warrick # (Auto) 0.5 Eos # (Auto) 0.0 Baso # (Auto) 0.0 APTT 33 Sodium 138 Potassium 4.0 Chloride 105 Carbon Dioxide 23 Anion Gap 14 BUN 8 L Creatinine 0.6 L Est GFR ( Amer) > 60 Est GFR (Non-Af Amer) > 60 Random Glucose 110 Calcium 8.2 L Phosphorus 2.7 Magnesium 1.9 Total Bilirubin 0.5 AST 87 H D ALT 113 H D Alkaline Phosphatase 214 H Total Protein 5.9 L Albumin 3.2 L D Globulin 2.7 Albumin/Globulin Ratio 1.2 Lipase 80 Assessment & Plan - Assessment and Plan (Free Text) Assessment: Etienne Hand is a 56 year old male with PMHx significant for recurrent cholangitis s/p metal biliary stent placement >5 years ago, chronic pancreatitis 2/2 prior EtOH abuse, polysubstance abuse, anxiety/depression who presented to the ED with complaint of abdominal pain -Acute on chronic abd pain, etiology: chronic pancreatitis? -Chronic pancreatitis -Prior polysubstance abuse Plan: -S/P ERCP with balloon sweep of CBD and placement of new [id number] fully covered metal stent within the previous metal stent- 05/2017 -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 as etiology of biliary disese - however, all previous autoimmune markers negative to date (DIONNE, AMA, ANCA, IgM) -Recommend formal evaluation at [facility] for advanced liver/biliary care and transplant evaluation -not a surgical candidate as per surgery -Advance diet as tolerated -Continue antibiotics for total of 2 weeks + HIDA, though no indication of Acute cholecystitis D/W Dr. Ornelas <Michael Ornelas - Last Filed: 08/06/17 15:08> Meds - Medications Medications: Current Medications Acetaminophen (Tylenol 325mg Tab) 650 mg PO Q6 PRN PRN Reason: Pain, Mild (1-3) Clonazepam (Klonopin) 1 mg PO BID [facility] Last Admin: 08/06/17 09:07 Dose: 1 mg Heparin Sodium (Porcine) (Heparin) 5,000 units SC Q12 [facility] Last Admin: 08/06/17 09:08 Dose: 5,000 units Metronidazole (Flagyl) 500 mg in 100 mls @ 100 mls/hr IVPB Q8 [facility] PRN Reason: Protocol Last Admin: 08/06/17 13:45 Dose: 100 mls/hr Piperacillin Sod/Tazobactam Sod (Zosyn 3.375 Gm Iv Premix) 3.375 gm in 50 mls @ 100 mls/hr IVPB Q8H [facility] PRN Reason: Protocol Last Admin: 08/06/17 10:17 Dose: 100 mls/hr Sodium Chloride (Sodium Chloride 0.9%) 1,000 mls @ 125 mls/hr IV .Q8H [facility] Last Admin: 08/06/17 14:32 Dose: 125 mls/hr Ketorolac Tromethamine (Toradol) 30 mg IVP Q6 PRN PRN Reason: Pain, severe (8-10) Ondansetron HCl (Zofran Inj) 4 mg IVP Q6H PRN PRN Reason: Nausea/Vomiting Pantoprazole Sodium (Protonix Inj) 40 mg IVP DAILY [facility] Last Admin: 08/06/17 09:07 Dose: 40 mg Quetiapine Fumarate (Seroquel) 200 mg PO HS [facility] Last Admin: 08/05/17 21:10 Dose: 200 mg Sertraline HCl (Zoloft) 25 mg PO DAILY [facility] Last Admin: 08/06/17 09:07 Dose: 25 mg Results - Vital Signs Recent Vital Signs: Last Vital Signs Temp 98.1 F 08/06/17 07:00 Pulse 71 08/06/17 07:00 Resp 18 08/06/17 07:00 BP 110/73 08/06/17 07:00 Pulse Ox 96 08/06/17 07:00 - Labs Result Diagrams: 08/06/17 07:57 08/06/17 07:57 Labs: Laboratory Results - last 24 hr 08/06/17 08/06/17 08/06/17 07:57 07:57 07:57 WBC 3.2 L D RBC 4.45 Hgb 14.0 Hct 39.7 MCV 89.2 MCH 31.6 H MCHC 35.4 RDW 13.8 Plt Count 61 L D MPV 10.4 Neut % (Auto) 63.6 Lymph % (Auto) 19.5 L Warrick % (Auto) 15.0 H Eos % (Auto) 1.1 Baso % (Auto) 0.8 Neut # (Auto) 2.0 Lymph # (Auto) 0.6 L Warrick # (Auto) 0.5 Eos # (Auto) 0.0 Baso # (Auto) 0.0 APTT 33 Sodium 138 Potassium 4.0 Chloride 105 Carbon Dioxide 23 Anion Gap 14 BUN 8 L Creatinine 0.6 L Est GFR ( Amer) > 60 Est GFR (Non-Af Amer) > 60 Random Glucose 110 Calcium 8.2 L Phosphorus 2.7 Magnesium 1.9 Total Bilirubin 0.5 AST 87 H D ALT 113 H D Alkaline Phosphatase 214 H Total Protein 5.9 L Albumin 3.2 L D Globulin 2.7 Albumin/Globulin Ratio 1.2 Lipase 80 Attending/Attestation - Attestation I have personally seen and examined this patient.: Yes I have fully participated in the care of the patient.: Yes I have reviewed all pertinent clinical information: Yes Notes (Text): 08/06/17 15:00 I have seen and examined patient with GI fellow. Agree with above documentation with the following additions. In brief, this is a 56 year old male with history of chronic pancreatitis (prior ETOH abuse), recurrent cholangitis with suspicion of underlying PSC s/p biliary stent placement, depression who presents to hospital with complaint of sudden onset abdominal pain which started yesterday. He describes a sharp, 7/10 intensity pain in epigastric region which radiates to RUQ. He also reports associated subjective fever/chills, and two episodes of diarrhea which have now resolved. He otherwise denies nausea, vomiting, weight loss, or change in bowel habits. Review of vitals from today are normal. Additional physical examination: Abdomen: no palpable hepato/splenomegaly Chronic pancreatitis Depression H/o recurrent cholangitis, ?PSC, s/p biliary stent placement Abdominal pain Transaminitis - Diet as tolerated - Continue with antibiotic therapy, obtain blood culture results - LFTs trending down, continue to monitor - CT and US imaging reviewed by me, no clear sign of biliary obstruction, recent ERCP performed with repeat stent placement - After hospital discharge, patient would benefit from subsequent follow up at tertiary care center for chronic liver disease management. ?need for liver biopsy to confirm PSC. Will continue to monitor patient clinical course.
[2017-08-06] MEDS ORDERED: Permethrin 5% Cream(60 gm) TOP ONE (14:24)
--- NOTE | 2017-08-06 14:33 | CP.PCM.PN ---
Subjective - Date & Time of Evaluation Date of Evaluation: 08/06/17 Time of Evaluation: 14:30 - Subjective Subjective: Progress note. Attending: Dr. Valenzuela Pt seen and examined at bedside. No acute distress, feeling better. Lice has been spotted on his bed. Will order treatment. Objective - Vital Signs/Intake and Output Vital Signs (last 24 hours): Temp Pulse Resp BP Pulse Ox 98.1 F 71 18 110/73 96 08/06/17 07:00 08/06/17 07:00 08/06/17 07:00 08/06/17 07:00 08/06/17 07:00 Intake and Output: 08/06/17 08/06/17 06:59 18:59 Intake Total 1755 Balance 1755 - Medications Medications: Current Medications Acetaminophen (Tylenol 325mg Tab) 650 mg PO Q6 PRN PRN Reason: Pain, Mild (1-3) Clonazepam (Klonopin) 1 mg PO BID [facility] Last Admin: 08/06/17 09:07 Dose: 1 mg Heparin Sodium (Porcine) (Heparin) 5,000 units SC Q12 [facility] Last Admin: 08/06/17 09:08 Dose: 5,000 units Metronidazole (Flagyl) 500 mg in 100 mls @ 100 mls/hr IVPB Q8 [facility] PRN Reason: Protocol Last Admin: 08/06/17 13:45 Dose: 100 mls/hr Piperacillin Sod/Tazobactam Sod (Zosyn 3.375 Gm Iv Premix) 3.375 gm in 50 mls @ 100 mls/hr IVPB Q8H [facility] PRN Reason: Protocol Last Admin: 08/06/17 10:17 Dose: 100 mls/hr Sodium Chloride (Sodium Chloride 0.9%) 1,000 mls @ 125 mls/hr IV .Q8H [facility] Last Admin: 08/06/17 09:12 Dose: Not Given Ketorolac Tromethamine (Toradol) 30 mg IVP Q6 PRN PRN Reason: Pain, severe (8-10) Ondansetron HCl (Zofran Inj) 4 mg IVP Q6H PRN PRN Reason: Nausea/Vomiting Pantoprazole Sodium (Protonix Inj) 40 mg IVP DAILY [facility] Last Admin: 08/06/17 09:07 Dose: 40 mg Quetiapine Fumarate (Seroquel) 200 mg PO HS [facility] Last Admin: 08/05/17 21:10 Dose: 200 mg Sertraline HCl (Zoloft) 25 mg PO DAILY [facility] Last Admin: 08/06/17 09:07 Dose: 25 mg - Labs Labs: 08/06/17 07:57 08/06/17 07:57 PT 14.4 SECONDS (9.7-12.2) H 08/05/17 09:12 INR 1.3 08/05/17 09:12 APTT 33 SECONDS (21-34) 08/06/17 07:57 - Constitutional Appears: Non-toxic, No Acute Distress, Chronically Ill - Head Exam Head Exam: ATRAUMATIC, NORMAL INSPECTION, NORMOCEPHALIC - Eye Exam Eye Exam: EOMI - ENT Exam ENT Exam: Mucous Membranes Moist - Neck Exam Neck Exam: Full ROM, Normal Inspection - Respiratory Exam Respiratory Exam: NORMAL BREATHING PATTERN. absent: Respiratory Distress - Cardiovascular Exam Cardiovascular Exam: +S1, +S2 - GI/Abdominal Exam GI & Abdominal Exam: Soft, Normal Bowel Sounds. absent: Tenderness - Extremities Exam Extremities Exam: Full ROM, Normal Inspection - Neurological Exam Neurological Exam: Alert, Awake, Oriented x3 - Psychiatric Exam Psychiatric exam: Normal Affect, Normal Mood - Skin Skin Exam: Dry, Intact, Normal Color, Warm Assessment and Plan - Assessment and Plan (Free Text) Assessment: Abdominal pain -Tylenol 650mg PO q6H PRN, mild pain Toradol 30mg IVP q6H PRN, severe pain differential includes chronic pancreatitis, vs pneumobilia, vs recurrent cholangitis -new stent placed within old stent, pt is s/p ERCP Surgery consult, Dr. Banuelos, previously saw pt 04/2017 no acute surgical intervention at this time GI consult, Dr. Rodriguez/Johnson, previously saw pt 04/2017 - Abdominal US 08/04- Pneumobilia and indwelling CBD stent, related to prior sphincterotomy. - Abd/Pelv CT PO/IV contast 08/04- 1. Possible pancreatitis. Correlate with amylase/lipase levels. 2. Intrahepatic ductal dilatation with pneumobilia. Common bile duct stent with internal peripheral soft tissue density. Clinical correlation is needed. 3. Portal hypertension. 4. Incidental/non-acute findings are described above. HIDA scan 08/05 was positive but no suggestion of acute melquiades CXR 08/05- negative. Zofran 4mg IVP q6H PRN, N/V Flagyl 500mg IVPB q8H, start 08/05 Zosyn 3.375mg IVPB q8H, start 08/05 -possibly has PSC but markers negative -plan for evaluation by [facility] Pneumobilia - Abdominal US 08/04- Pneumobilia and indwelling CBD stent, related to prior sphincterotomy. - f/u GI / Surg recs Depression / Anxiety klonopin 1mg PO BID Zoloft 25mg PO qD Seroquel 200mg PO HS Prophylaxis SCDs Protonix 40mg IVP qD Heparin 5000u SC q12 Case discussed with attending. All medical management as per Dr. Ivonne Valenzuela.
--- NOTE | 2017-08-06 14:41 | CP.PCM.PN ---
Subjective - Date & Time of Evaluation Date of Evaluation: 08/06/17 Time of Evaluation: 08:40 - Subjective Subjective: clinically same Objective - Vital Signs/Intake and Output Vital Signs (last 24 hours): Temp Pulse Resp BP Pulse Ox 98.1 F 71 18 110/73 96 08/06/17 07:00 08/06/17 07:00 08/06/17 07:00 08/06/17 07:00 08/06/17 07:00 Intake and Output: 08/06/17 08/06/17 06:59 18:59 Intake Total 1755 Balance 1755 - Medications Medications: Current Medications Acetaminophen (Tylenol 325mg Tab) 650 mg PO Q6 PRN PRN Reason: Pain, Mild (1-3) Clonazepam (Klonopin) 1 mg PO BID [facility] Last Admin: 08/06/17 09:07 Dose: 1 mg Heparin Sodium (Porcine) (Heparin) 5,000 units SC Q12 [facility] Last Admin: 08/06/17 09:08 Dose: 5,000 units Metronidazole (Flagyl) 500 mg in 100 mls @ 100 mls/hr IVPB Q8 [facility] PRN Reason: Protocol Last Admin: 08/06/17 13:45 Dose: 100 mls/hr Piperacillin Sod/Tazobactam Sod (Zosyn 3.375 Gm Iv Premix) 3.375 gm in 50 mls @ 100 mls/hr IVPB Q8H [facility] PRN Reason: Protocol Last Admin: 08/06/17 10:17 Dose: 100 mls/hr Sodium Chloride (Sodium Chloride 0.9%) 1,000 mls @ 125 mls/hr IV .Q8H [facility] Last Admin: 08/06/17 14:32 Dose: 125 mls/hr Ketorolac Tromethamine (Toradol) 30 mg IVP Q6 PRN PRN Reason: Pain, severe (8-10) Ondansetron HCl (Zofran Inj) 4 mg IVP Q6H PRN PRN Reason: Nausea/Vomiting Pantoprazole Sodium (Protonix Inj) 40 mg IVP DAILY [facility] Last Admin: 08/06/17 09:07 Dose: 40 mg Quetiapine Fumarate (Seroquel) 200 mg PO HS [facility] Last Admin: 08/05/17 21:10 Dose: 200 mg Sertraline HCl (Zoloft) 25 mg PO DAILY [facility] Last Admin: 08/06/17 09:07 Dose: 25 mg - Labs Labs: 08/06/17 07:57 08/06/17 07:57 PT 14.4 SECONDS (9.7-12.2) H 08/05/17 09:12 INR 1.3 08/05/17 09:12 APTT 33 SECONDS (21-34) 08/06/17 07:57 - Constitutional Appears: Well - Head Exam Head Exam: ATRAUMATIC, NORMAL INSPECTION, NORMOCEPHALIC - Eye Exam Eye Exam: EOMI, Normal appearance, PERRL Pupil Exam: NORMAL ACCOMODATION, PERRL - ENT Exam ENT Exam: Mucous Membranes Moist, Normal Exam - Neck Exam Neck Exam: Full ROM, Normal Inspection. absent: Lymphadenopathy - Respiratory Exam Respiratory Exam: Decreased Breath Sounds - Cardiovascular Exam Cardiovascular Exam: REGULAR RHYTHM, +S1, +S2 - GI/Abdominal Exam GI & Abdominal Exam: Soft, Diminished Bowel Sounds - Rectal Exam Rectal Exam: Deferred
--- NOTE | 2017-08-06 22:22 | CARD ---
APPROVED REPORT EKG Measurement Heart [id number] <Conclusion> Normal sinus rhythm Low voltage QRS Borderline ECG
[2017-08-07] MEDS: Piperacill/Tazo 3.375gm in Dex 3.375 GM/50 ML BAG IVPB SCH ×3 (02:14→18:43)
[2017-08-07] MEDS: Sodium Chloride 0.9% 1,000 ML IV SCH ×3 (02:14→16:45)
[2017-08-07] MEDS: metroNIDAZOLE IV 500 mg/100 ml 500 MG/100 ML BAG IVPB SCH ×3 (06:43→21:49)
[2017-08-07 07:06] LABS: BASO % 0.5 % (0.0-2.0); EOS # 0.2 K/uL (0.0-0.7); EOS % 5.1 % (0.0-4.0); HEMOGLOBIN 13.6 g/dL (12.0-18.0); LYMPH % 24.9 % (20.0-40.0); MEAN CORPUSCULAR HEMOGLOBIN 31.2 pg (27.0-31.0); MEAN CORPUSCULAR HGB CONC 35.1 g/dL (33.0-37.0); MEAN PLATELET VOLUME 9.9 fL (7.2-11.7); MONO # 0.6 K/uL (0.0-0.8); MONO % 16.1 % (0.0-10.0); NEUT # 2.1 K/uL (1.8-7.0); NEUT % 53.4 % (50.0-75.0); RBC 4.37 Mil/uL (4.40-5.90); RED CELL DISTRIBUTION WIDTH 13.8 % (11.5-14.5); WHITE BLOOD COUNT 3.9 K/uL (4.8-10.8)
[2017-08-07 07:40] LABS: ALB/GLOB RATIO 1.1 (1.0-2.1); ALT/SGPT 92 U/L (21-72); AST/SGOT 71 U/L (17-59); BLOOD UREA NITROGEN 10 mg/dL (9-20); GFR AFRICAN-AMERICAN > 60; GFR NON-AFRICAN AMERICAN > 60; LIPASE 84 U/L (23-300)
--- NOTE | 2017-08-07 08:17 | CP.PCM.PN ---
<Loida Valenzuela - Last Filed: 08/07/17 08:17> Objective - Vital Signs/Intake and Output Vital Signs (last 24 hours): Temp Pulse Resp BP Pulse Ox 97.6 F 96 H 20 107/67 98 08/06/17 23:49 08/06/17 23:49 08/06/17 23:49 08/06/17 23:49 08/06/17 23:49 Intake and Output: 08/07/17 08/07/17 06:59 18:59 Intake Total 1524 Balance 1524 - Medications Medications: Current Medications Acetaminophen (Tylenol 325mg Tab) 650 mg PO Q6 PRN PRN Reason: Pain, Mild (1-3) Clonazepam (Klonopin) 1 mg PO BID [facility] Last Admin: 08/06/17 17:16 Dose: 1 mg Heparin Sodium (Porcine) (Heparin) 5,000 units SC Q12 [facility] Last Admin: 08/06/17 21:24 Dose: 5,000 units Metronidazole (Flagyl) 500 mg in 100 mls @ 100 mls/hr IVPB Q8 [facility] PRN Reason: Protocol Last Admin: 08/07/17 06:43 Dose: 100 mls/hr Piperacillin Sod/Tazobactam Sod (Zosyn 3.375 Gm Iv Premix) 3.375 gm in 50 mls @ 100 mls/hr IVPB Q8H [facility] PRN Reason: Protocol Last Admin: 08/07/17 02:14 Dose: 100 mls/hr Sodium Chloride (Sodium Chloride 0.9%) 1,000 mls @ 125 mls/hr IV .Q8H [facility] Last Admin: 08/07/17 02:14 Dose: 125 mls/hr Ketorolac Tromethamine (Toradol) 30 mg IVP Q6 PRN PRN Reason: Pain, severe (8-10) Ondansetron HCl (Zofran Inj) 4 mg IVP Q6H PRN PRN Reason: Nausea/Vomiting Pantoprazole Sodium (Protonix Inj) 40 mg IVP DAILY [facility] Last Admin: 08/06/17 09:07 Dose: 40 mg Quetiapine Fumarate (Seroquel) 200 mg PO HS [facility] Last Admin: 08/06/17 21:24 Dose: 200 mg Sertraline HCl (Zoloft) 25 mg PO DAILY [facility] Last Admin: 08/06/17 09:07 Dose: 25 mg - Labs Labs: 08/07/17 07:02 08/07/17 07:02 PT 14.4 SECONDS (9.7-12.2) H 08/05/17 09:12 INR 1.3 08/05/17 09:12 APTT 33 SECONDS (21-34) 08/06/17 07:57 <GreenfieldCornelius lail - Last Filed: 08/07/17 17:14> Subjective - Date & Time of Evaluation Date of Evaluation: 08/07/17 Time of Evaluation: 07:00 - Subjective Subjective: PGY4 GI Follow-up Pt seen and examined bedside No complaints tolerating diet Denies any fever, chills, or diaphoresis ROS: 12 point ROS conducted, neg other than above Objective - Vital Signs/Intake and Output Vital Signs (last 24 hours): Temp Pulse Resp BP Pulse Ox 97.6 F 96 H 20 107/67 98 08/06/17 23:49 08/06/17 23:49 08/06/17 23:49 08/06/17 23:49 08/06/17 23:49 Intake and Output: 08/07/17 08/07/17 06:59 18:59 Intake Total 1524 Balance 1524 - Medications Medications: Current Medications Acetaminophen (Tylenol 325mg Tab) 650 mg PO Q6 PRN PRN Reason: Pain, Mild (1-3) Clonazepam (Klonopin) 1 mg PO BID [facility] Last Admin: 08/06/17 17:16 Dose: 1 mg Heparin Sodium (Porcine) (Heparin) 5,000 units SC Q12 [facility] Last Admin: 08/06/17 21:24 Dose: 5,000 units Metronidazole (Flagyl) 500 mg in 100 mls @ 100 mls/hr IVPB Q8 [facility] PRN Reason: Protocol Last Admin: 08/07/17 06:43 Dose: 100 mls/hr Piperacillin Sod/Tazobactam Sod (Zosyn 3.375 Gm Iv Premix) 3.375 gm in 50 mls @ 100 mls/hr IVPB Q8H [facility] PRN Reason: Protocol Last Admin: 08/07/17 02:14 Dose: 100 mls/hr Sodium Chloride (Sodium Chloride 0.9%) 1,000 mls @ 125 mls/hr IV .Q8H [facility] Last Admin: 08/07/17 02:14 Dose: 125 mls/hr Ketorolac Tromethamine (Toradol) 30 mg IVP Q6 PRN PRN Reason: Pain, severe (8-10) Ondansetron HCl (Zofran Inj) 4 mg IVP Q6H PRN PRN Reason: Nausea/Vomiting Pantoprazole Sodium (Protonix Inj) 40 mg IVP DAILY [facility] Last Admin: 08/06/17 09:07 Dose: 40 mg Quetiapine Fumarate (Seroquel) 200 mg PO HS [facility] Last Admin: 08/06/17 21:24 Dose: 200 mg Sertraline HCl (Zoloft) 25 mg PO DAILY [facility] Last Admin: 08/06/17 09:07 Dose: 25 mg - Labs Labs: 08/07/17 07:02 08/07/17 07:02 PT 14.4 SECONDS (9.7-12.2) H 08/05/17 09:12 INR 1.3 08/05/17 09:12 APTT 33 SECONDS (21-34) 08/06/17 07:57 - Constitutional Appears: Well, No Acute Distress - Head Exam Head Exam: ATRAUMATIC, NORMOCEPHALIC - Eye Exam Eye Exam: Normal appearance - ENT Exam ENT Exam: Mucous Membranes Moist - Respiratory Exam Respiratory Exam: Clear to Ausculation Bilateral, NORMAL BREATHING PATTERN. absent: Rales, Rhonchi, Wheezes, Respiratory Distress - Cardiovascular Exam Cardiovascular Exam: REGULAR RHYTHM, +S1, +S2 - GI/Abdominal Exam GI & Abdominal Exam: Soft, Normal Bowel Sounds. absent: Distended, Firm, Guarding, Rigid, Tenderness, Organomegaly - Extremities Exam Extremities Exam: absent: Joint Swelling, Pedal Edema - Neurological Exam Neurological Exam: Alert, Awake, Oriented x3 - Psychiatric Exam Psychiatric exam: Normal Affect, Normal Mood - Skin Skin Exam: Dry, Intact, Normal Color, Warm Assessment and Plan - Assessment and Plan (Free Text) Assessment: Etienne Hand is a 56 year old male with PMHx significant for recurrent cholangitis s/p metal biliary stent placement >5 years ago, chronic pancreatitis 2/2 prior EtOH abuse, polysubstance abuse, anxiety/depression who presented to the ED with complaint of abdominal pain -Acute on chronic abd pain, etiology: chronic pancreatitis? -Chronic pancreatitis -Prior polysubstance abuse Plan: -S/P ERCP with balloon sweep of CBD and placement of new [id number] fully covered metal stent within the previous metal stent- 05/2017 -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 as etiology of biliary disese - however, all previous autoimmune markers negative to date (DIONNE, AMA, ANCA, IgM) -Recommend formal evaluation at [facility] for advanced liver/biliary care and transplant evaluation -not a surgical candidate as per surgery -Advance diet as tolerated -Continue antibiotics for total of 2 weeks + HIDA, though no indication of Acute cholecystitis -no indication of any GI procedure during this admission D/W Dr. Rodriguez Attending/Attestation - Attestation I have personally seen and examined this patient.: Yes I have fully participated in the care of the patient.: Yes I have reviewed all pertinent clinical information, including history, physical exam and plan: Yes Notes (Text): 08/07/17 17:12 56 year old male with h/o PSC, Cirrhosis, CBD stricture s/p metal stent admitted with abdominal pain, now resolved. HIDA is unreliable in this scenario as metal stents may be occluding cystic duct. Pain resolved. Diet as tolerated. Would defer surgery at the moment. Recommend ursodiol indefinitely. Will sign off. No sign of cholangitis.
--- NOTE | 2017-08-07 11:08 | CP.PCM.PN ---
Subjective - Date & Time of Evaluation Date of Evaluation: 08/07/17 Time of Evaluation: 10:58 - Subjective Subjective: PGY-[address] Valenzuela's service: Pt seen and examined at bedside. Nursing reports permethrin treatment completed yesterday. Patient denies abd pain, N/V, f/c this AM. He reports he was able to tolerate breakfast without difficulty. Last BM was yesterday. Admits living in homeless [facility], and has had lice before in the past. Admits less itchiness than yesterday after the permethrin. Objective - Vital Signs/Intake and Output Vital Signs (last 24 hours): Temp Pulse Resp BP Pulse Ox 98.2 F 64 18 125/74 96 08/07/17 07:00 08/07/17 07:00 08/07/17 07:00 08/07/17 07:00 08/07/17 07:00 Intake and Output: 08/07/17 08/07/17 06:59 18:59 Intake Total 1524 Balance 1524 - Medications Medications: Current Medications Acetaminophen (Tylenol 325mg Tab) 650 mg PO Q6 PRN PRN Reason: Pain, Mild (1-3) Clonazepam (Klonopin) 1 mg PO BID [facility] Last Admin: 08/07/17 09:46 Dose: 1 mg Heparin Sodium (Porcine) (Heparin) 5,000 units SC Q12 [facility] Last Admin: 08/07/17 09:47 Dose: 5,000 units Metronidazole (Flagyl) 500 mg in 100 mls @ 100 mls/hr IVPB Q8 [facility] PRN Reason: Protocol Last Admin: 08/07/17 06:43 Dose: 100 mls/hr Piperacillin Sod/Tazobactam Sod (Zosyn 3.375 Gm Iv Premix) 3.375 gm in 50 mls @ 100 mls/hr IVPB Q8H [facility] PRN Reason: Protocol Last Admin: 08/07/17 10:33 Dose: 100 mls/hr Sodium Chloride (Sodium Chloride 0.9%) 1,000 mls @ 125 mls/hr IV .Q8H [facility] Last Admin: 08/07/17 09:00 Dose: 125 mls/hr Ketorolac Tromethamine (Toradol) 30 mg IVP Q6 PRN PRN Reason: Pain, severe (8-10) Ondansetron HCl (Zofran Inj) 4 mg IVP Q6H PRN PRN Reason: Nausea/Vomiting Pantoprazole Sodium (Protonix Inj) 40 mg IVP DAILY [facility] Last Admin: 08/07/17 09:47 Dose: 40 mg Quetiapine Fumarate (Seroquel) 200 mg PO HS [facility] Last Admin: 08/06/17 21:24 Dose: 200 mg Sertraline HCl (Zoloft) 25 mg PO DAILY [facility] Last Admin: 08/07/17 09:47 Dose: 25 mg - Labs Labs: 08/07/17 07:02 08/07/17 07:02 PT 14.4 SECONDS (9.7-12.2) H 08/05/17 09:12 INR 1.3 08/05/17 09:12 APTT 33 SECONDS (21-34) 08/06/17 07:57 - Additional Findings Additional findings: - Constitutional Appears: Non-toxic, No Acute Distress, Chronically Ill - Head Exam Head Exam: ATRAUMATIC, NORMAL INSPECTION, NORMOCEPHALIC - Eye Exam Eye Exam: EOMI - ENT Exam ENT Exam: Mucous Membranes Moist - Neck Exam Neck Exam: Full ROM, Normal Inspection - Respiratory Exam Respiratory Exam: NORMAL BREATHING PATTERN. absent: Respiratory Distress - Cardiovascular Exam Cardiovascular Exam: +S1, +S2 - GI/Abdominal Exam GI & Abdominal Exam: Soft, Normal Bowel Sounds. absent: Tenderness - - Extremities Exam Extremities Exam: Full ROM, Normal Inspection - Neurological Exam Neurological Exam: Alert, Awake, Oriented x3 - Psychiatric Exam Psychiatric exam: Normal Affect, Normal Mood - Skin Skin Exam: Dry, Intact, Normal Color, Warm Assessment and Plan - Assessment and Plan (Free Text) Plan: Acute on chronic, Abdominal pain Differential includes chronic pancreatitis, vs pneumobilia, vs recurrent cholangitis -new stent placed within old stent, pt is s/p ERCP Abdominal US 08/04- Pneumobilia and indwelling CBD stent, related to prior sphincterotomy. Abd/Pelv CT PO/IV contast 08/04- 1. Possible pancreatitis. Correlate with amylase/lipase levels. 2. Intrahepatic ductal dilatation with pneumobilia. Common bile duct stent with internal peripheral soft tissue density. Clinical correlation is needed. 3. Portal hypertension. 4. Incidental/non-acute findings are described above. HIDA scan 08/05 was positive but no suggestion of acute melquiades Lipase 69 on admission; 84 on f/u Surgery consult, Dr. Banuelos, previously saw pt 04/2017 - no acute surgical intervention at this time GI consult, Dr. Rodriguez/Johnson, previously saw pt 04/2017 - suspect PSC is underlying etiology of biliary disease but AI markers negative to date - plan for evaluation by [facility]; will need liver biopsy to confirm PSC - Continue antibiotics for total of 2 weeks Flagyl 500mg IVPB q8H, start 08/05 (Day 3) Zosyn 3.375mg IVPB q8H, start 08/05 (Day 3) Zofran 4mg IVP q6H PRN, N/V NS @ 125c/hr Toradol 30mg IV Q6h IV PRN Tylenol 650mg PO Q6h PRN Blood cultures: Negative x 24 hours Abnormal LFTs T bili 2.0; AST/ALT 113/85; Alk phos 226 on admission; INR 1.3/Albumin 3.0 - improving 0.5; 71/92; 182 this AM Pneumobilia - Abdominal US 08/04- Pneumobilia and indwelling CBD stent, related to prior sphincterotomy. Pancytopenia Most likely due to long EtOH hx Depression / Anxiety klonopin 1mg PO BID Zoloft 25mg PO qD Seroquel 200mg PO HS Lice Permethrin treatment 5% once Prophylaxis SCDs Protonix 40mg IVP qD Heparin 5000u SC q12 Case discussed with attending. All medical management as per Dr. Ivonne Valenzuela.
--- NOTE | 2017-08-07 13:58 | CP.PCM.PN ---
Subjective - Date & Time of Evaluation Date of Evaluation: 08/07/17 Time of Evaluation: 11:20 - Subjective Subjective: clinically same Objective - Vital Signs/Intake and Output Vital Signs (last 24 hours): Temp Pulse Resp BP Pulse Ox 98.2 F 64 18 125/74 96 08/07/17 07:00 08/07/17 07:00 08/07/17 07:00 08/07/17 07:00 08/07/17 07:00 Intake and Output: 08/07/17 08/07/17 06:59 18:59 Intake Total 1524 Balance 1524 - Medications Medications: Current Medications Acetaminophen (Tylenol 325mg Tab) 650 mg PO Q6 PRN PRN Reason: Pain, Mild (1-3) Clonazepam (Klonopin) 1 mg PO BID [facility] Last Admin: 08/07/17 09:46 Dose: 1 mg Heparin Sodium (Porcine) (Heparin) 5,000 units SC Q12 [facility] Last Admin: 08/07/17 09:47 Dose: 5,000 units Metronidazole (Flagyl) 500 mg in 100 mls @ 100 mls/hr IVPB Q8 [facility] PRN Reason: Protocol Last Admin: 08/07/17 13:20 Dose: 100 mls/hr Piperacillin Sod/Tazobactam Sod (Zosyn 3.375 Gm Iv Premix) 3.375 gm in 50 mls @ 100 mls/hr IVPB Q8H [facility] PRN Reason: Protocol Last Admin: 08/07/17 10:33 Dose: 100 mls/hr Sodium Chloride (Sodium Chloride 0.9%) 1,000 mls @ 125 mls/hr IV .Q8H [facility] Last Admin: 08/07/17 09:00 Dose: 125 mls/hr Ketorolac Tromethamine (Toradol) 30 mg IVP Q6 PRN PRN Reason: Pain, severe (8-10) Ondansetron HCl (Zofran Inj) 4 mg IVP Q6H PRN PRN Reason: Nausea/Vomiting Pantoprazole Sodium (Protonix Inj) 40 mg IVP DAILY [facility] Last Admin: 08/07/17 09:47 Dose: 40 mg Quetiapine Fumarate (Seroquel) 200 mg PO HS [facility] Last Admin: 08/06/17 21:24 Dose: 200 mg Sertraline HCl (Zoloft) 25 mg PO DAILY [facility] Last Admin: 08/07/17 09:47 Dose: 25 mg - Labs Labs: 08/07/17 07:02 08/07/17 07:02 PT 14.4 SECONDS (9.7-12.2) H 08/05/17 09:12 INR 1.3 08/05/17 09:12 APTT 33 SECONDS (21-34) 08/06/17 07:57 - Constitutional Appears: Well - Head Exam Head Exam: ATRAUMATIC, NORMAL INSPECTION, NORMOCEPHALIC - Eye Exam Eye Exam: EOMI, Normal appearance, PERRL Pupil Exam: NORMAL ACCOMODATION, PERRL - ENT Exam ENT Exam: Mucous Membranes Moist, Normal Exam - Neck Exam Neck Exam: Full ROM, Normal Inspection. absent: Lymphadenopathy - Respiratory Exam Respiratory Exam: Decreased Breath Sounds - Cardiovascular Exam Cardiovascular Exam: REGULAR RHYTHM, +S1, +S2 - GI/Abdominal Exam GI & Abdominal Exam: Soft, Diminished Bowel Sounds - Rectal Exam Rectal Exam: Deferred
[2017-08-08] MEDS: Sodium Chloride 0.9% 1,000 ML IV SCH ×2 (02:43→09:08)
[2017-08-08] MEDS: Piperacill/Tazo 3.375gm in Dex 3.375 GM/50 ML BAG IVPB SCH ×3 (02:52→19:30)
[2017-08-08] MEDS: metroNIDAZOLE IV 500 mg/100 ml 500 MG/100 ML BAG IVPB SCH ×3 (05:23→21:09)
[2017-08-08 07:54] LABS: BASO % 0.6 % (0.0-2.0); EOS # 0.2 K/uL (0.0-0.7); EOS % 5.1 % (0.0-4.0); HEMOGLOBIN 13.8 g/dL (12.0-18.0); LYMPH # 1.2 K/uL (1.0-4.3); LYMPH % 31.7 % (20.0-40.0); MEAN CELL VOLUME 89.3 fL (80.0-94.0); MEAN CORPUSCULAR HEMOGLOBIN 31.3 pg (27.0-31.0); MEAN CORPUSCULAR HGB CONC 35.1 g/dL (33.0-37.0); MEAN PLATELET VOLUME 10.8 fL (7.2-11.7); MONO # 0.5 K/uL (0.0-0.8); MONO % 13.1 % (0.0-10.0); NEUT # 1.8 K/uL (1.8-7.0); NEUT % 49.5 % (50.0-75.0); NRBC % 0.1 % (0.0-2.0); RBC 4.4 Mil/uL (4.40-5.90); RED CELL DISTRIBUTION WIDTH 13.7 % (11.5-14.5); WHITE BLOOD COUNT 3.7 K/uL (4.8-10.8)
[2017-08-08 08:23] LABS: ALB/GLOB RATIO 1.1 (1.0-2.1); ALT/SGPT 81 U/L (21-72); AST/SGOT 53 U/L (17-59); BLOOD UREA NITROGEN 9 mg/dL (9-20); CALCIUM 8.2 mg/dl (8.6-10.4); GFR AFRICAN-AMERICAN > 60; GFR NON-AFRICAN AMERICAN > 60; LIPASE 86 U/L (23-300)
--- NOTE | 2017-08-08 20:22 | CP.PCM.PN ---
Subjective - Date & Time of Evaluation Date of Evaluation: 08/08/17 Time of Evaluation: 07:40 - Subjective Subjective: clinically same Objective - Vital Signs/Intake and Output Vital Signs (last 24 hours): Temp Pulse Resp BP Pulse Ox 98.3 F 51 L 18 101/64 95 08/08/17 15:00 08/08/17 15:00 08/08/17 15:00 08/08/17 15:00 08/08/17 15:00 Intake and Output: 08/08/17 08/09/17 18:59 06:59 Intake Total 1330 Balance 1330 - Medications Medications: Current Medications Acetaminophen (Tylenol 325mg Tab) 650 mg PO Q6 PRN PRN Reason: Pain, Mild (1-3) Clonazepam (Klonopin) 1 mg PO BID [facility] Last Admin: 08/08/17 17:29 Dose: 1 mg Heparin Sodium (Porcine) (Heparin) 5,000 units SC Q12 [facility] Last Admin: 08/07/17 21:48 Dose: 5,000 units Metronidazole (Flagyl) 500 mg in 100 mls @ 100 mls/hr IVPB Q8 [facility] PRN Reason: Protocol Last Admin: 08/08/17 13:23 Dose: 100 mls/hr Piperacillin Sod/Tazobactam Sod (Zosyn 3.375 Gm Iv Premix) 3.375 gm in 50 mls @ 100 mls/hr IVPB Q8H [facility] PRN Reason: Protocol Last Admin: 08/08/17 19:30 Dose: 100 mls/hr Ondansetron HCl (Zofran Inj) 4 mg IVP Q6H PRN PRN Reason: Nausea/Vomiting Pantoprazole Sodium (Protonix Inj) 40 mg IVP DAILY [facility] Last Admin: 08/08/17 09:07 Dose: 40 mg Quetiapine Fumarate (Seroquel) 200 mg PO HS [facility] Last Admin: 08/07/17 21:48 Dose: 200 mg Sertraline HCl (Zoloft) 25 mg PO DAILY [facility] Last Admin: 08/08/17 09:07 Dose: 25 mg - Labs Labs: 08/08/17 07:40 08/08/17 07:40 PT 14.4 SECONDS (9.7-12.2) H 08/05/17 09:12 INR 1.3 08/05/17 09:12 APTT 33 SECONDS (21-34) 08/06/17 07:57 - Constitutional Appears: Well - Head Exam Head Exam: ATRAUMATIC, NORMAL INSPECTION, NORMOCEPHALIC - Eye Exam Eye Exam: EOMI, Normal appearance, PERRL Pupil Exam: NORMAL ACCOMODATION, PERRL - ENT Exam ENT Exam: Mucous Membranes Moist, Normal Exam - Neck Exam Neck Exam: Full ROM, Normal Inspection. absent: Lymphadenopathy - Respiratory Exam Respiratory Exam: Decreased Breath Sounds - Cardiovascular Exam Cardiovascular Exam: REGULAR RHYTHM, +S1, +S2 - GI/Abdominal Exam GI & Abdominal Exam: Soft, Diminished Bowel Sounds - Rectal Exam Rectal Exam: Deferred
[2017-08-09] MEDS: Piperacill/Tazo 3.375gm in Dex 3.375 GM/50 ML BAG IVPB SCH ×3 (03:34→18:31)
[2017-08-09] MEDS: metroNIDAZOLE IV 500 mg/100 ml 500 MG/100 ML BAG IVPB SCH ×3 (06:05→21:09)
[2017-08-09 08:10] LABS: BASO % 0.5 % (0.0-2.0); EOS # 0.1 K/uL (0.0-0.7); EOS % 2.9 % (0.0-4.0); HEMOGLOBIN 14.2 g/dL (12.0-18.0); LYMPH # 1.3 K/uL (1.0-4.3); LYMPH % 27.2 % (20.0-40.0); MEAN CELL VOLUME 89.1 fL (80.0-94.0); MEAN CORPUSCULAR HEMOGLOBIN 30.9 pg (27.0-31.0); MEAN CORPUSCULAR HGB CONC 34.7 g/dL (33.0-37.0); MEAN PLATELET VOLUME 10.4 fL (7.2-11.7); MONO # 0.4 K/uL (0.0-0.8); MONO % 8.1 % (0.0-10.0); NEUT # 2.8 K/uL (1.8-7.0); NEUT % 61.3 % (50.0-75.0); RBC 4.6 Mil/uL (4.40-5.90); RED CELL DISTRIBUTION WIDTH 13.5 % (11.5-14.5); WHITE BLOOD COUNT 4.6 K/uL (4.8-10.8)
[2017-08-09 08:37] LABS: ALB/GLOB RATIO 1.2 (1.0-2.1); ALBUMIN 3.1 g/dL (3.5-5.0); ALT/SGPT 83 U/L (21-72); AST/SGOT 81 U/L (17-59); BLOOD UREA NITROGEN 13 mg/dL (9-20); CALCIUM 8.4 mg/dl (8.6-10.4); GFR AFRICAN-AMERICAN > 60; GFR NON-AFRICAN AMERICAN > 60; LIPASE 48 U/L (23-300)
--- NOTE | 2017-08-09 17:26 | CP.PCM.PN ---
Subjective - Date & Time of Evaluation Date of Evaluation: 08/09/17 Time of Evaluation: 08:00 - Subjective Subjective: clinically same Objective - Vital Signs/Intake and Output Vital Signs (last 24 hours): Temp Pulse Resp BP Pulse Ox 98.0 F 57 L 20 113/68 96 08/09/17 16:10 08/09/17 16:10 08/09/17 16:10 08/09/17 16:10 08/09/17 16:10 - Medications Medications: Current Medications Acetaminophen (Tylenol 325mg Tab) 650 mg PO Q6 PRN PRN Reason: Pain, Mild (1-3) Clonazepam (Klonopin) 1 mg PO BID [facility] Last Admin: 08/09/17 17:13 Dose: 1 mg Heparin Sodium (Porcine) (Heparin) 5,000 units SC Q12 [facility] Last Admin: 08/07/17 21:48 Dose: 5,000 units Metronidazole (Flagyl) 500 mg in 100 mls @ 100 mls/hr IVPB Q8 [facility] PRN Reason: Protocol Last Admin: 08/09/17 13:25 Dose: 100 mls/hr Piperacillin Sod/Tazobactam Sod (Zosyn 3.375 Gm Iv Premix) 3.375 gm in 50 mls @ 100 mls/hr IVPB Q8H [facility] PRN Reason: Protocol Last Admin: 08/09/17 10:01 Dose: 100 mls/hr Ondansetron HCl (Zofran Inj) 4 mg IVP Q6H PRN PRN Reason: Nausea/Vomiting Pantoprazole Sodium (Protonix Ec Tab) 40 mg PO DAILY [facility] Quetiapine Fumarate (Seroquel) 200 mg PO HS [facility] Last Admin: 08/08/17 21:08 Dose: 200 mg Sertraline HCl (Zoloft) 25 mg PO DAILY [facility] Last Admin: 08/09/17 10:01 Dose: 25 mg - Labs Labs: 08/09/17 08:01 08/09/17 08:01 PT 14.4 SECONDS (9.7-12.2) H 08/05/17 09:12 INR 1.3 08/05/17 09:12 APTT 33 SECONDS (21-34) 08/06/17 07:57 - Constitutional Appears: Well - Head Exam Head Exam: ATRAUMATIC, NORMAL INSPECTION, NORMOCEPHALIC - Eye Exam Eye Exam: EOMI, Normal appearance, PERRL Pupil Exam: NORMAL ACCOMODATION, PERRL - ENT Exam ENT Exam: Mucous Membranes Moist, Normal Exam - Neck Exam Neck Exam: Full ROM, Normal Inspection. absent: Lymphadenopathy - Respiratory Exam Respiratory Exam: Decreased Breath Sounds - Cardiovascular Exam Cardiovascular Exam: REGULAR RHYTHM, +S1, +S2 - GI/Abdominal Exam GI & Abdominal Exam: Soft, Diminished Bowel Sounds - Rectal Exam Rectal Exam: Deferred
[2017-08-10] MEDS: Piperacill/Tazo 3.375gm in Dex 3.375 GM/50 ML BAG IVPB SCH ×2 (03:48→10:47)
[2017-08-10] MEDS: metroNIDAZOLE IV 500 mg/100 ml 500 MG/100 ML BAG IVPB SCH ×2 (06:03→14:07)
--- NOTE | 2017-08-10 08:18 | CP.PCM.PN ---
Subjective - Date & Time of Evaluation Date of Evaluation: 08/10/17 Time of Evaluation: 08:10 - Subjective Subjective: PGY-[address] Valenzuela's service: Pt seen and examined at bedside. No acute overnight events. Permethrin treatment completed. Pt is tolerating his diet. Reports normal BM yesterday. Reports his itchiness has resolved with permethrin. 12-point ROS otherwise negative with no additional acute complaints. ----- Patient is stable for discharge per Dr. Ivonne Valenzuela. Patient should resume all medications as outlined in this document. Additionally, patient should take the new medications listed below (scripts provided). 1. Please make an appointment and follow up with your Primary Doctor, Dr. Ivonne Valenzuela, this Thursday08/12/17. 2. Your Nutrition Services Assistant, Dr. Carl, recommended you for a formal evaluation at [facility] for advanced liver/biliary care and transplant evaluation. Your PMD, Dr. Ivonne Valenzuela, can help you setup your appointment with [facility] as he knows the physicians there. 3. You will need a liver biopsy to confirm an official diagnosis of PSC. The specialists at [facility] can help you with this. 4. Your GI doctor recommended you take the medication Ursodiol to help prevent your frequency of gallbladder attacks. 5. Both the surgery team and the GI team do not recommend gallbladder surgery at this time. Patient should return to ED immediately if symptoms return or worsen. Instructions discussed with patient who understood and agreed. Newly prescribed medications: Ursodiol 300mg PO TID #90 Objective - Vital Signs/Intake and Output Vital Signs (last 24 hours): Temp Pulse Resp BP Pulse Ox 97.7 F 65 20 113/68 94 L 08/10/17 07:00 08/10/17 07:00 08/10/17 07:00 08/10/17 07:00 08/10/17 07:00 Intake and Output: 08/10/17 08/10/17 06:59 18:59 Intake Total 400 Balance 400 - Medications Medications: Current Medications Acetaminophen (Tylenol 325mg Tab) 650 mg PO Q6 PRN PRN Reason: Pain, Mild (1-3) Clonazepam (Klonopin) 1 mg PO BID [facility] Last Admin: 08/09/17 17:13 Dose: 1 mg Heparin Sodium (Porcine) (Heparin) 5,000 units SC Q12 [facility] Last Admin: 08/07/17 21:48 Dose: 5,000 units Metronidazole (Flagyl) 500 mg in 100 mls @ 100 mls/hr IVPB Q8 JULI PRN Reason: Protocol Last Admin: 08/10/17 06:03 Dose: 100 mls/hr Piperacillin Sod/Tazobactam Sod (Zosyn 3.375 Gm Iv Premix) 3.375 gm in 50 mls @ 100 mls/hr IVPB Q8H JULI PRN Reason: Protocol Last Admin: 08/10/17 03:48 Dose: 100 mls/hr Ondansetron HCl (Zofran Inj) 4 mg IVP Q6H PRN PRN Reason: Nausea/Vomiting Pantoprazole Sodium (Protonix Ec Tab) 40 mg PO DAILY [facility] Quetiapine Fumarate (Seroquel) 200 mg PO HS [facility] Last Admin: 08/09/17 21:10 Dose: 200 mg Sertraline HCl (Zoloft) 25 mg PO DAILY [facility] Last Admin: 08/09/17 10:01 Dose: 25 mg - Labs Labs: 08/09/17 08:01 08/09/17 08:01 PT 14.4 SECONDS (9.7-12.2) H 08/05/17 09:12 INR 1.3 08/05/17 09:12 APTT 33 SECONDS (21-34) 08/06/17 07:57 - Additional Findings Additional findings: - Constitutional Appears: Non-toxic, No Acute Distress, Chronically Ill - Head Exam Head Exam: ATRAUMATIC, NORMAL INSPECTION, NORMOCEPHALIC - Eye Exam Eye Exam: EOMI - ENT Exam ENT Exam: Mucous Membranes Moist - Neck Exam Neck Exam: Full ROM, Normal Inspection - Respiratory Exam Respiratory Exam: NORMAL BREATHING PATTERN. absent: Respiratory Distress - Cardiovascular Exam Cardiovascular Exam: Regular rate, +S1, +S2 - GI/Abdominal Exam GI & Abdominal Exam: Soft, Normal Bowel Sounds. absent: Tenderness - - Extremities Exam Extremities Exam: Full ROM, Normal Inspection - Neurological Exam Neurological Exam: Alert, Awake, Oriented x3 - Psychiatric Exam Psychiatric exam: Normal Affect, Normal Mood - Skin Skin Exam: Dry, Intact, Normal Color, Warm Assessment and Plan - Assessment and Plan (Free Text) Assessment: Acute on chronic, Abdominal pain 08/10: GI rec indefinite Ursodiol. Will start Ursodiol 300mg PO TID. Patient to followup with [facility] for evaluation of PSC, biopsy, and consult for possible liver transplant. Differential includes chronic pancreatitis, vs pneumobilia, vs recurrent cholangitis -new stent placed within old stent, pt is s/p ERCP Abdominal US 08/04- Pneumobilia and indwelling CBD stent, related to prior sphincterotomy. Abd/Pelv CT PO/IV contast 08/04- 1. Possible pancreatitis. Correlate with amylase/lipase levels. 2. Intrahepatic ductal dilatation with pneumobilia. Common bile duct stent with internal peripheral soft tissue density. Clinical correlation is needed. 3. Portal hypertension. 4. Incidental/non-acute findings are described above. HIDA scan 08/05 was positive but no suggestion of acute melquiades Lipase 69 on admission; 84 on f/u Surgery consult, Dr. Banuelos, previously saw pt 04/2017 - no acute surgical intervention at this time GI consult, Dr. Rodriguez/Johnson, previously saw pt 04/2017 - suspect PSC is underlying etiology of biliary disease but AI markers negative to date - plan for evaluation by [facility]; will need liver biopsy to confirm PSC - Continue antibiotics for total of 2 weeks Flagyl 500mg IVPB q8H, start 08/05 (Day 3) Zosyn 3.375mg IVPB q8H, start 08/05 (Day 3) Zofran 4mg IVP q6H PRN, N/V NS @ 125c/hr Toradol 30mg IV Q6h IV PRN Tylenol 650mg PO Q6h PRN Blood cultures: Negative x 24 hours Abnormal LFTs T bili 2.0; AST/ALT 113/85; Alk phos 226 on admission; INR 1.3/Albumin 3.0 - improving 0.5; 71/92; 182 this AM Pneumobilia - Abdominal US 08/04- Pneumobilia and indwelling CBD stent, related to prior sphincterotomy. Pancytopenia Most likely due to long EtOH hx Depression / Anxiety klonopin 1mg PO BID Zoloft 25mg PO qD Seroquel 200mg PO HS Lice Permethrin treatment 5% once Prophylaxis SCDs Protonix 40mg IVP qD Heparin 5000u SC q12 Case discussed with attending. All medical management as per Dr. Ivonne Valenzuela.
[2017-08-10 08:28] LABS: BASO % 0.9 % (0.0-2.0); EOS # 0.1 K/uL (0.0-0.7); EOS % 3.1 % (0.0-4.0); HEMOGLOBIN 15.4 g/dL (12.0-18.0); LYMPH # 1.4 K/uL (1.0-4.3); LYMPH % 29.1 % (20.0-40.0); MEAN CELL VOLUME 89.7 fL (80.0-94.0); MEAN CORPUSCULAR HEMOGLOBIN 31.1 pg (27.0-31.0); MEAN CORPUSCULAR HGB CONC 34.6 g/dL (33.0-37.0); MEAN PLATELET VOLUME 10.3 fL (7.2-11.7); MONO # 0.3 K/uL (0.0-0.8); MONO % 7.1 % (0.0-10.0); NEUT # 2.9 K/uL (1.8-7.0); NEUT % 59.8 % (50.0-75.0); NRBC % 0.1 % (0.0-2.0); RBC 4.94 Mil/uL (4.40-5.90); RED CELL DISTRIBUTION WIDTH 14.1 % (11.5-14.5); WHITE BLOOD COUNT 4.9 K/uL (4.8-10.8)
[2017-08-10 08:40] LABS: ALB/GLOB RATIO 1.2 (1.0-2.1); ALBUMIN 3.4 g/dL (3.5-5.0); ALT/SGPT 90 U/L (21-72); AST/SGOT 85 U/L (17-59); BLOOD UREA NITROGEN 14 mg/dL (9-20); CALCIUM 8.6 mg/dl (8.6-10.4); GFR AFRICAN-AMERICAN > 60; GFR NON-AFRICAN AMERICAN > 60
[2017-08-10] MEDS ORDERED: Pantoprazole 40 mg EC Tab PO SCH (10:00)
[2017-08-10 16:50] VITALS: BP 100/58; PULSE 75; RESP 18; TEMP 98; O2SAT 95
== END 2017-08-10 18:28 | disposition home or self-care (01) | DRG 204 ==
LOC: C.ER 14:45 → C.9E 08-05 06:28 → C.5S 08-05 12:28
PROVIDERS: ADMIT Internal Medicine Nephrology; ATTEND Internal Medicine Nephrology
DX: K86.0 Alcohol-induced chronic pancreatitis (principal); K70.30 Alcoholic cirrhosis of liver without ascites; D61.818 Other pancytopenia; K80.10 Calculus of gallbladder with chronic cholecystitis without obstruction; K83.0 Cholangitis; F10.20 Alcohol dependence, uncomplicated; K76.6 Portal hypertension; K29.70 Gastritis, unspecified, without bleeding; F32.9 Major depressive disorder, single episode, unspecified; B85.2 Pediculosis, unspecified; F17.210 Nicotine dependence, cigarettes, uncomplicated; Z59.0 Homelessness

== ENCOUNTER 2017-08-24 16:59 | Inpatient (IN) | payer MEDICAID ==
[2017-08-24 16:59] VITALS: BMI 29.7
[2017-08-24 17:45] LABS: BASO % 0.3 % (0.0-2.0); EOS # 0.2 K/uL (0.0-0.7); EOS % 2.8 % (0.0-4.0); HEMOGLOBIN 15.3 g/dL (12.0-18.0); LYMPH # 1.2 K/uL (1.0-4.3); LYMPH % 14.2 % (20.0-40.0); MEAN CELL VOLUME 89.9 fL (80.0-94.0); MEAN CORPUSCULAR HEMOGLOBIN 31.2 pg (27.0-31.0); MEAN CORPUSCULAR HGB CONC 34.8 g/dL (33.0-37.0); MEAN PLATELET VOLUME 10.2 fL (7.2-11.7); MONO # 0.6 K/uL (0.0-0.8); MONO % 7.4 % (0.0-10.0); NEUT # 6.3 K/uL (1.8-7.0); NEUT % 75.3 % (50.0-75.0); NRBC % 0.2 % (0.0-2.0); RBC 4.91 Mil/uL (4.40-5.90); RED CELL DISTRIBUTION WIDTH 13.7 % (11.5-14.5); WHITE BLOOD COUNT 8.4 K/uL (4.8-10.8)
[2017-08-24 18:00] LABS: ALB/GLOB RATIO 1.1 (1.0-2.1); ALBUMIN 3.7 g/dL (3.5-5.0); ALT/SGPT 50 U/L (21-72); AST/SGOT 38 U/L (17-59); BLOOD UREA NITROGEN 19 mg/dL (9-20); CALCIUM 8.8 mg/dl (8.6-10.4); GFR AFRICAN-AMERICAN > 60; GFR NON-AFRICAN AMERICAN > 60
[2017-08-24 18:02] LABS: ACETAMINOPHEN < 10.0 ug/mL (10.0-30.0); SALICYLATE < 1.0 mg/dL 1
--- NOTE | 2017-08-24 18:04 | RAD ---
PROCEDURE: CHEST RADIOGRAPH, 1 VIEW HISTORY: Overdosed COMPARISON: Portable chest 08/05/2017. FINDINGS: LUNGS: Diminished inspiratory volume noted. Crowding of bronchovascular markings is favored at the right-sided may be present the left however the element of atelectasis or infiltrate is difficult to exclude at the left base. PLEURA: No pneumothorax or pleural fluid seen. CARDIOVASCULAR: Normal. OSSEOUS STRUCTURES: No significant abnormalities. VISUALIZED UPPER ABDOMEN: Normal. OTHER FINDINGS: None. IMPRESSION: Borderline infiltrate or atelectasis left base. Diminished inspiratory volume noted.
[2017-08-24 18:46] LABS: SQUAMOUS EPITHIAL < 1 /hpf (0-5); URINE BILIRUBIN NEGATIVE (NEGATIVE); URINE BLOOD NEGATIVE (NEGATIVE); URINE CLARITY Clear (Clear); URINE COLOR Amber (YELLOW); URINE GLUCOSE (UA) NORMAL (Normal); URINE LEUKOCYTE ESTERASE NEG Leu/uL (Negative); URINE PROTEIN 1+ mg/dL (NEGATIVE)
[2017-08-24] MEDS ORDERED: Potassium Chloride 20 mEq ER Tab PO STA (18:56)
[2017-08-24 19:01] LABS: BARBITURATES, UR NEGATIVE (NEGATIVE); OPIATES, UR NEGATIVE (NEGATIVE); PHENCYCLIDINE, UR NEGATIVE (NEGATIVE)
[2017-08-24] MEDS ORDERED: Potassium Chloride 20 mEq ER Tab PO ONE (19:02)
[2017-08-24 19:03] LABS: BENZODIAZEPINES, UR POSITIVE (NEGATIVE)
--- NOTE | 2017-08-24 20:44 | C.PDOC ---
History Of Present Illness 56yo male, presents to ED stating he has suicidal ideation. Patient reports 3 days ago, he overdosed on seroquel, zoloft and klonopin 3 days ago. Patient denies any fever, chills, chest pain, shortness of breath or abdominal pain. He does report continuous suicidal thoughts. He has no other medical complaints. PMD: Rolf Valenzuela Time Seen by Provider: 08/24/17 17:20 Chief Complaint (Nursing): Abdominal Pain History Per: Patient History/Exam Limitations: no limitations Onset/Duration Of Symptoms: Days Current Symptoms Are (Timing): Still Present Associated Symptoms: Suicidal Thoughts Past Medical History Reviewed: Historical Data, Nursing Documentation, Vital Signs Vital Signs: Last Vital Signs Temp 98.9 F 08/24/17 20:16 Pulse 71 08/24/17 20:16 Resp 16 08/24/17 20:16 BP 106/66 08/24/17 20:16 Pulse Ox 97 08/24/17 20:47 - Medical History PMH: Anxiety, Depression, Gastritis, Pancreatitis, Seizures (RELATED TO ETHO ABUSE ) Denies: CHF, HIV, Chronic Kidney Disease Surgical History: Endoscopy - [facility] Procedures DILATION OF COMMON BILE DUCT WITH INTRALUMINAL DEVICE, ENDO (05/26/17) EXCISION OF COMMON BILE DUCT, ENDO, DIAGN (05/26/17) EXTIRPATION OF MATTER FROM COMMON BILE DUCT, ENDO (01/30/17) EXTIRPATION OF MATTER FROM PANCREATIC DUCT, ENDO (01/30/17) PHERESIS OF PLATELETS, SINGLE (10/17/16) Family History: States: No Known Family Hx - Social History Hx Alcohol Use: Yes Hx Substance Use: No - Immunization History Hx Tetanus Toxoid Vaccination: No Hx Influenza Vaccination: No Hx Pneumococcal Vaccination: No Review Of Systems Except As Marked, All Systems Reviewed And Found Negative. Constitutional: Negative for: Fever, Chills Cardiovascular: Negative for: Chest Pain Respiratory: Negative for: Shortness of Breath Gastrointestinal: Negative for: Abdominal Pain Psych: Positive for: Suicidal ideation Physical Exam - Physical Exam Appears: Non-toxic, No Acute Distress Skin: Normal Color Head: Atraumatic, Normacephalic Eye(s): bilateral: Normal Inspection Oral Mucosa: Moist Neck: Normal ROM, Supple Chest: Symmetrical Cardiovascular: Rhythm Regular Respiratory: Normal Breath Sounds, No Wheezing Extremity: Normal ROM Neurological/Psych: Oriented x3, Normal Speech, Normal Cognition ED Course And Treatment - Laboratory Results Result Diagrams: 08/24/17 17:42 08/24/17 17:42 O2 Sat by Pulse Oximetry: 97 (RA) Pulse Ox Interpretation: Normal Medical Decision Making Medical Decision Making: Plan: -- Labs -- EKG -- CXR -- Urinalysis Progress: 1825 Labs reviewed, patient with low potassium levels. KCl 20meq PO given. 1944 Per crisis team, patient accepted for admission by Dr. Dickens. Patient to be admitted due to depression. Disposition - Disposition Disposition Time: 18:42 Condition: STABLE - Clinical Impression Clinical Impression: Depression - Scribe Statement The provider has reviewed the documentation as recorded by the Scribe (Maddison Ivory) Provider Attestation: All medical record entries made by the Scribe were at my direction and personally dictated by me. I have reviewed the chart and agree that the record accurately reflects my personal performance of the history, physical exam, medical decision making, and the department course for this patient. I have also personally directed, reviewed, and agree with the discharge instructions and disposition.
--- NOTE | 2017-08-24 20:51 | PCM.BM ---
<Manjeet Chaudhari - Last Filed: 08/24/17 20:49> Treatment Plan Problems - Problems identified on initial assessmt Depression Date Initiated: 08/24/17 Time Initiated: 20:49 Assessment reference: NA Treatment assets and liabiliti Patient Assests: cooperative, educated, ADL independent, physically healthy, good support system, negotiates basic needs Patient Liabilities: live alone (Homeless), financial problems (Unemployed), substance abuse (Prescription medication) - Milieu Protocol Maintain good personal hygiene: daily Encourage regular showers, every shift Remind patient to perform daily oral care, every shift Assist patient to perform ADL's Conduct patient checks and document Observation sheet: Q15 minutes (For Safety) Maintain personal safety: every shift Educate patient to report safety concerns to staff, every shift Monitor environment for contraband/sharps Medication safety: Monitor for expected outcome, potential side effects: every shift, Assess barriers to learning: every shift, Assess readiness for medication education: every shift <Edwar Ling - Last Filed: 08/25/17 18:48> - Diagnosis (1) Major depressive disorder, severe Status: Acute Interventions: 08/25/17 18:48 * Assess/adjust medications daily and /or as needed * See patient on an individual basis 7x/week to assess symptoms of depression * Monitor for side effects & effectiveness of medications * <Patience Hankins - Last Filed: 08/26/17 13:00> Family Contact Family involvement: Famliy/SO not involved - Goals for Treatment Patient goals for treatment: "I need a group program." Discharge/Continuing Care - Education Needs Education Needs: Patient Medication, Patient Coping Skills, Patient Placement options, Patient Community resources - Discharge Discharge Criteria: Tolerates medication w/o severe side effects, No longer exhibiting s/s of withdrawal, Reduction of target symptoms Discharge to:: Group Home - Treatment Team Participation Discussed with Family/SO: No Was Patient/Family/SO present at Treatment Team Meeting: Yes
--- NOTE | 2017-08-25 11:28 | CARD ---
APPROVED REPORT EKG Measurement Heart [id number] <Conclusion> Normal sinus rhythm Normal ECG
--- NOTE | 2017-08-25 14:04 | PCM.PSYCH ---
Initial Psychiatric Evaluation - Initial Psychiatric Evaluation Type of Admission: Voluntary Legal Status: Capacity Chief Complaint (in patient's own words): "I was depressed" History of Present Illness and Precipitating Events: The pt is seen, chart reviewed and case discussed. 56 year old male presented to the ED stating he has suicidal ideation. Patient reports 3 days ago, he overdosed on Seroquel, Zoloft, and Klonopin. He was unconscious for a day and a half. After he woke up, he decided to come to the hospital because he needed help. He was last here at [facility] a few weeks ago for cholecystitis. He has never been admitted to the psychiatry unit here. He regularly goes to [facility] for depression. 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 Patient has had suicidal ideation for the past year but had no plan until recently, this past weekend. Before that had suicidal ideation and overdosed on his medications about 1-2 years ago. After discharge, he followed up with [facility]. He has been hospitalized a couple times at [facility] for his depression. Patient is single, has no children, and no significant other. Patient now gets money from welfare and his father. Patient has plans of applying for disability after discharge. Patient smokes 1 PPD for the past 34 years. Denies alcohol and illicit drug use. Patient wants to continue to go back to [facility] to continue treatment for his depression. Patient complains of anxiety, decreased sleep, decreased concentration, decreased energy, and decreased appetite. Patient denies suicidal ideation today. PMHx: Gastritis, Chronic Back Pain, Cholecystitis (2018) PSHx: Denies Family Hx: Denies Allergies: No Known Allergies Medications: Klonopin, Seroquel, Zoloft Current Medications: Active Medications Generic Name Dose Route Start Last Admin Trade Name Freq PRN Reason Stop Dose Admin Fluoxetine HCl 20 mg 08/25/17 12:15 08/25/17 12:38 Prozac PO 20 mg DAILY JULI Administration Gabapentin 300 mg 08/25/17 14:00 Neurontin PO TID JULI Hydroxyzine HCl 50 mg 08/25/17 12:15 08/25/17 12:38 Atarax PO 50 mg Q6 PRN Administration Agitation Quetiapine Fumarate 200 mg 08/25/17 22:00 Seroquel PO HS JULI Ursodiol 300 mg 08/25/17 10:00 08/25/17 10:08 Actigall PO 300 mg TID JULI Administration Past Psychiatric History - Past Psychiatric History Previous Treatment History: Inpatient Pertinent Medical Hx (Current Medical&Sleep Prob, Allergies): Allergies Allergy/AdvReac Type Severity Reaction Status Date / Time No Known Allergies Allergy Verified 08/24/17 17:09 QUEtiapine [Seroquel] 200 mg PO HS #30 tab 05/28/17 Clonazepam [Klonopin] 1 tab PO BID 08/04/17 Sertraline HCl [Zoloft] 1 tab PO DAILY 08/04/17 Ursodiol [Actigall] 300 mg PO TID #90 cap 08/10/17 Review of Systems - Review of Systems All systems: reviewed and no additional remarkable complaints except - Neurological Neurological: UNREMARKABLE - Psychiatric Psychiatric: Abnormal Sleep Pattern, Anhedonia, Anxiety, Change in Appetite, Depression, Difficulty Concentrating. absent: Auditory Hallucinations, Hallucinations, Homicidal Ideation, Suicidal Ideation Mental Status Examination - Personal Presentation Personal Presentation: Looks stated age - Affect Affect: Flat - Motor Activity Motor Activity: Calm - Reliability in Providing Information Reliability in Providing Information: Good - Speech Speech: Organized - Mood Mood: Depressed - Formal Thought Process Formal Thought Process: No Impairment - Cognitive Functions Orientation: Person, Place, Time Sensorium: Alert Attention/Concentration: Attentive Judgement: Intact, as evidence by: Insight regarding need for hospitalization Memory: Recent intact, as evidence by: Ability to recall events of the day, Remote intact, as evidenced by: Abilit to recall sig. life events - Risk Risk: Diminished functioning - Strength & Assets Inventory Strength & Assets Inventory: Cooperative - Limitations Limitations: Living alone DSM 5 DX - DSM 5 DSM 5 Diagnosis: Major Depressive Disorder, recurrent, severe, w/o psychosis Tobacco Use Disorder, Severe Alcohol use d/o - severe, in remission - Recommended/Plan of Treatment Treatment Recommendations and Plan of Treatment: Start Fluoxetine, Gabapentin, Quetiapine Attend groups and activities Individual therapy Psychoeducation and support Encourage compliance with meds and after care Refer to outpatient program Teach healthy lifestyle methods, i.e. diet, exercise, meditation Smoking cessation 33 min Projected ELOS: 7 days Prognosis: good w treatment - Smoking Cessation Smoking Cessation Initiated: Yes
[2017-08-25 14:35] LABS: BLOOD UREA NITROGEN 19 mg/dL (9-20); CALCIUM 8.8 mg/dl (8.6-10.4); GFR AFRICAN-AMERICAN > 60; GFR NON-AFRICAN AMERICAN > 60; HDL CHOLESTEROL 26 mg/dL (30-70)
[2017-08-25 14:44] LABS: LDL CHOLESTEROL 83 mg/dL (0-129)
[2017-08-26] MEDS: Ergocalciferol 50,000 Intl Units Cap PO SCH (12:23)
[2017-08-26] MEDS: Pantoprazole 20 mg EC Tab PO SCH (14:29)
--- NOTE | 2017-08-26 14:58 | PCM.PYCHPN ---
Psychiatric Progress Note - Psychiatric Progress Note Patient seen today, length of contact: 20 min Patient Chief Complaint: "I am still feeling depressed" Problems Identified/Issues Discussed: Patient seen and evaluated, chart reviewed and discussed with nurse. Patient starting to come out of his room. But he remained isolative and withdrawn. He reports depressed mood but reports some improvement in the feelings of hopelessness and helplessness. He is slowly progressing at the moment. Patient describes a mild benzodiazepine withdrawal symptom of anxiety. Patient has been taking benzodiazepines for the past several years. Patient reports eating well and sleeping okay. Sometimes he sleeps well and sometimes he does not. He is taking medications and denies any side effects Symptoms are improving but he needs more time for stabilization. Supportive therapy and psychoeducation were given. Medication Change: Yes (short librium taper) Medical Record Reviewed: Yes Mental Status Examination - Cognitive Function Orientation: Person, Place, Situation, Time Memory: Intact Attention: Poor Concentration: Poor Association: WNL Fund of Knowledge: WNL - Mood Mood: Depressed - Affect Affect: Flat - Speech Speech: Appropriate - Formal Thought Process Formal Thought Process: No Impairment - Suicidal Ideation Suicidal Ideation: No - Homicidal Ideation Homicidal Ideation: No Goal/Treatment Plan - Goal/Treatment Plan Need for Continued Stay: Discharge may exacerbated symptoms, Severe functional impairment Progress Toward Problem(s) and Goals/Treatment Plan: Continue Fluoxetine, Gabapentin, Quetiapine Add librium taper Attend groups and activities Individual therapy Psychoeducation and support Encourage compliance with meds and after care Refer to outpatient program Teach healthy lifestyle methods, i.e. diet, exercise, meditation Smoking cessation
[2017-08-27] MEDS: Pantoprazole 20 mg EC Tab PO SCH (09:21)
--- NOTE | 2017-08-27 14:11 | PCM.PYCHPN ---
Psychiatric Progress Note - Psychiatric Progress Note Patient seen today, length of contact: 20 min Patient Chief Complaint: "I am still feeling depressed" Problems Identified/Issues Discussed: Patient seen and evaluated, chart reviewed and discussed with nurse. Patient starting to come out of his room. But he remained isolative and withdrawn. He reports depressed mood but reports some improvement in the feelings of hopelessness and helplessness. He is slowly progressing at the moment. Patient states he is not interested in every activity that is offered, such as games. He is more interested in group therapy and talking. Patients withdrawal symptoms from benzodiazepines are improved compared to yesterday. Patient denies suicidal ideations but reports if he ever felt overwhelmed, he would notify the nurses. Patient reports eating well and sleeping well. He is taking medications and denies any side effects Symptoms are improving but he needs more time for stabilization. Supportive therapy and psychoeducation were given. Medication Change: Yes (short librium taper) Medical Record Reviewed: Yes Mental Status Examination - Cognitive Function Orientation: Person, Place, Situation, Time Memory: Intact Attention: Poor Concentration: Poor Association: WNL Fund of Knowledge: WNL - Mood Mood: Depressed - Affect Affect: Flat - Speech Speech: Appropriate - Formal Thought Process Formal Thought Process: No Impairment - Suicidal Ideation Suicidal Ideation: No - Homicidal Ideation Homicidal Ideation: No Goal/Treatment Plan - Goal/Treatment Plan Need for Continued Stay: Discharge may exacerbated symptoms, Severe functional impairment Progress Toward Problem(s) and Goals/Treatment Plan: Continue Fluoxetine, Gabapentin, Quetiapine Continue librium taper Attend groups and activities Individual therapy Psychoeducation and support Encourage compliance with meds and after care Refer to outpatient program Teach healthy lifestyle methods, i.e. diet, exercise, meditation Smoking cessation - Smoking Cessation Smoking Cessation Initiated: Yes
[2017-08-28] MEDS: Aluminum Hydroxide/Magnesium Hydroxide Susp (30 mL) PO PRN ×3 (08:19→21:56)
[2017-08-28] MEDS: Pantoprazole 20 mg EC Tab PO SCH (09:02)
[2017-08-28 13:53] LABS: BASO % 0.5 % (0.0-2.0); EOS # 0.2 K/uL (0.0-0.7); EOS % 2.5 % (0.0-4.0); LYMPH # 1.5 K/uL (1.0-4.3); LYMPH % 22.6 % (20.0-40.0); MEAN CELL VOLUME 90.5 fL (80.0-94.0); MEAN CORPUSCULAR HEMOGLOBIN 31.4 pg (27.0-31.0); MEAN CORPUSCULAR HGB CONC 34.7 g/dL (33.0-37.0); MEAN PLATELET VOLUME 10.9 fL (7.2-11.7); MONO # 0.5 K/uL (0.0-0.8); MONO % 7.1 % (0.0-10.0); NEUT # 4.3 K/uL (1.8-7.0); NEUT % 67.3 % (50.0-75.0); RBC 4.78 Mil/uL (4.40-5.90); RED CELL DISTRIBUTION WIDTH 13.8 % (11.5-14.5); WHITE BLOOD COUNT 6.5 K/uL (4.8-10.8)
[2017-08-28 14:14] LABS: ALB/GLOB RATIO 1.1 (1.0-2.1); ALBUMIN 3.6 g/dL (3.5-5.0); ALT/SGPT 44 U/L (21-72); AMYLASE 89 U/L (30-110); AST/SGOT 50 U/L (17-59); BLOOD UREA NITROGEN 12 mg/dL (9-20); CALCIUM 8.8 mg/dl (8.6-10.4); GFR AFRICAN-AMERICAN > 60; GFR NON-AFRICAN AMERICAN > 60; LIPASE 87 U/L (23-300)
--- NOTE | 2017-08-28 14:30 | PCM.PYCHPN ---
Psychiatric Progress Note - Psychiatric Progress Note Patient seen today, length of contact: 20 min Patient Chief Complaint: "I am still feeling depressed and I have mild stomach pain" Problems Identified/Issues Discussed: Patient seen and evaluated, chart reviewed, and discussed with nurse. Patient remains isolative and withdrawn. He continues to report depressed mood. He is slowly progressing at the moment. He is still not interested in all the group therapy sessions. Patient has stomach pain today. He was previously at [facility] for cholecystitis (2 weeks) and has a history of gastritis. The stomach pain is diffuse in nature. Patient feels a little anxious today. Patient is sleep well and eating well. He is compliant with his medications and denies any side effects. Symptoms are improving but he needs more time for stabilization Supportive therapy and psychoeducation were given. After care discussed. Medication Change: Yes (short librium taper) Medical Record Reviewed: Yes Mental Status Examination - Cognitive Function Orientation: Person, Place, Situation, Time Memory: Intact Attention: Poor Concentration: Poor Association: WNL Fund of Knowledge: WNL - Mood Mood: Depressed - Affect Affect: Constricted - Speech Speech: Appropriate - Formal Thought Process Formal Thought Process: No Impairment - Suicidal Ideation Suicidal Ideation: No - Homicidal Ideation Homicidal Ideation: No Goal/Treatment Plan - Goal/Treatment Plan Need for Continued Stay: Discharge may exacerbated symptoms, Severe functional impairment Progress Toward Problem(s) and Goals/Treatment Plan: Continue Fluoxetine, Gabapentin, Quetiapine Continue librium taper Attend groups and activities Individual therapy Psychoeducation and support Encourage compliance with meds and after care Refer to outpatient program Teach healthy lifestyle methods, i.e. diet, exercise, meditation Smoking cessation
[2017-08-28 14:42] LABS: FREE T4 1.05 ng/dL (0.78-2.19)
[2017-08-28] MEDS ORDERED: Bismuth Subsalicylate 262 mg/15 ml Sus (240 ml) PO PRN ×2 (15:53→15:56)
[2017-08-29] MEDS: Pantoprazole 40 mg EC Tab PO SCH (09:06)
--- NOTE | 2017-08-29 12:21 | PCM.PYCHPN ---
Psychiatric Progress Note - Psychiatric Progress Note Patient seen today, length of contact: 20 min Patient Chief Complaint: I am feeling depressed Problems Identified/Issues Discussed: Patient seen and evaluated, chart reviewed and discussed with the nurse. Patient still reports depressed mood and feelings of hopelessness and helplessness. He remained isolated and withdrawn and confined to his room. He reports poor sleep but reports improvement in his appetite. He is taking the medications and denies any side effects. Symptoms are improving and he needs more time for stabilization Supportive therapy and psychoeducation were given. Medication Change: Yes (short librium taper) Medical Record Reviewed: Yes Mental Status Examination - Cognitive Function Orientation: Person, Place, Situation, Time Memory: Intact Attention: Poor Concentration: Poor Association: WNL Fund of Knowledge: WNL - Mood Mood: Depressed - Affect Affect: Constricted - Speech Speech: Appropriate - Formal Thought Process Formal Thought Process: No Impairment - Suicidal Ideation Suicidal Ideation: No - Homicidal Ideation Homicidal Ideation: No Goal/Treatment Plan - Goal/Treatment Plan Need for Continued Stay: Discharge may exacerbated symptoms, Severe functional impairment Progress Toward Problem(s) and Goals/Treatment Plan: Continue Fluoxetine, Gabapentin, Quetiapine Continue librium taper Attend groups and activities Individual therapy Psychoeducation and support Encourage compliance with meds and after care Refer to outpatient program Teach healthy lifestyle methods, i.e. diet, exercise, meditation Smoking cessation
[2017-08-29] MEDS: Aluminum Hydroxide/Magnesium Hydroxide Susp (30 mL) PO PRN ×2 (15:05→22:21)
[2017-08-30] MEDS: Pantoprazole 40 mg EC Tab PO SCH (09:37)
[2017-08-30] MEDS: Aluminum Hydroxide/Magnesium Hydroxide Susp (30 mL) PO PRN (10:52)
--- NOTE | 2017-08-30 13:48 | PCM.PYCHPN ---
Psychiatric Progress Note - Psychiatric Progress Note Patient seen today, length of contact: 20 min Patient Chief Complaint: I'm feeling same.' Problems Identified/Issues Discussed: Patient seen and evaluated, chart reviewed and discussed with the nurse. As per the staff patient remained isolated and withdrawn. Patient still reports . He remained isolated and withdrawn and confined to his room. He reports poor sleep but reports improvement in his appetite.He denies any auditory or visual hallucinations. He is taking the medications and denies any side effects. Symptoms are improving and he needs more time for stabilization Supportive therapy and psychoeducation were given. Medication Change: Yes (increase Zoloft) Medical Record Reviewed: Yes Mental Status Examination - Cognitive Function Orientation: Person, Place, Situation, Time Memory: Intact Attention: Poor Concentration: Poor Association: WNL Fund of Knowledge: WNL - Mood Mood: Depressed - Affect Affect: Constricted - Speech Speech: Appropriate - Formal Thought Process Formal Thought Process: No Impairment - Suicidal Ideation Suicidal Ideation: No - Homicidal Ideation Homicidal Ideation: No Goal/Treatment Plan - Goal/Treatment Plan Need for Continued Stay: Discharge may exacerbated symptoms, Severe functional impairment Progress Toward Problem(s) and Goals/Treatment Plan: Continue Fluoxetine, Gabapentin, Quetiapine Continue librium taper Attend groups and activities Individual therapy Psychoeducation and support Encourage compliance with meds and after care Refer to outpatient program Teach healthy lifestyle methods, i.e. diet, exercise, meditation Smoking cessation - Smoking Cessation Smoking Cessation Initiated: No
[2017-08-31] MEDS: Pantoprazole 40 mg EC Tab PO SCH (09:29)
--- NOTE | 2017-08-31 11:44 | PCM.PYCHPN ---
Psychiatric Progress Note - Psychiatric Progress Note Patient seen today, length of contact: 18 min Patient Chief Complaint: "I am still depressed" Problems Identified/Issues Discussed: The pt is seen, chart reviewed, case discussed with staff. The pt is compliant with medications and reports no side-effects. Symptoms are improving but needs more time to stabilize. He says she needs benzos (detox is over) and that he is still depressed However, he is no longer suicidal He is on zoloft and needs more time Dr. nelson is consulted re his GI problems He said he did the CT and [facility] before After care discussed, support and psychoeducation given. Medication Change: No Medical Record Reviewed: Yes Mental Status Examination - Cognitive Function Orientation: Person, Place, Situation, Time Memory: Intact Attention: Poor Concentration: Poor Association: WNL Fund of Knowledge: WNL - Mood Mood: Depressed - Affect Affect: Constricted - Speech Speech: Appropriate - Formal Thought Process Formal Thought Process: No Impairment - Suicidal Ideation Suicidal Ideation: No - Homicidal Ideation Homicidal Ideation: No Goal/Treatment Plan - Goal/Treatment Plan Need for Continued Stay: Discharge may exacerbated symptoms, Severe functional impairment Progress Toward Problem(s) and Goals/Treatment Plan: Continue Sertraline, Gabapentin, Quetiapine Continue librium taper Attend groups and activities Individual therapy Psychoeducation and support Encourage compliance with meds and after care Refer to outpatient program Teach healthy lifestyle methods, i.e. diet, exercise, meditation Smoking cessation
--- NOTE | 2017-08-31 16:31 | CP.PCM.CON ---
Past Patient History - Past Medical History & Family History Past Medical History?: Yes - Past Social History Smoking Status: Heavy Smoker > 10 Cigarettes Daily - CARDIAC Hx Congestive Heart Failure: No - PULMONARY Hx Respiratory Disorders: No - NEUROLOGICAL Hx Seizures: Yes (RELATED TO ETHO ABUSE ) - HEENT Hx HEENT Problems: No - RENAL Hx Chronic Kidney Disease: No - ENDOCRINE/METABOLIC Hx Endocrine Disorders: No - HEMATOLOGICAL/ONCOLOGICAL Hx Human Immunodeficiency Virus (HIV): No - INTEGUMENTARY Hx Dermatological Problems: No - MUSCULOSKELETAL/RHEUMATOLOGICAL Hx Musculoskeletal Disorders: Yes Hx Back Pain: Yes Hx Falls: No Hx Herniated Disk: Yes - GASTROINTESTINAL Hx Gastritis: Yes Hx Pancreatitis: Yes - GENITOURINARY/GYNECOLOGICAL Hx Genitourinary Disorders: No - PSYCHIATRIC Hx Substance Use: Yes - SURGICAL HISTORY Hx Surgeries: Yes Hx Bile Duct Stent: Yes (CBD STENT 2/3 YEARS AGO) Hx Herniorrhaphy: Yes - ANESTHESIA Hx Anesthesia: Yes Hx Anesthesia Reactions: No Hx Malignant Hyperthermia: No Meds Allergies/Adverse Reactions: Allergies Allergy/AdvReac Type Severity Reaction Status Date / Time No Known Allergies Allergy Verified 08/24/17 17:09 - Medications Medications: Current Medications Al Hydrox/Mg Hydrox/Simethicone (Maalox 30 Ml) 30 ml PO Q6 PRN PRN Reason: Indigestion / Heartburn Last Admin: 08/30/17 10:52 Dose: 30 ml Bismuth Subsalicylate (Pepto-Bismol) 262 mg PO Q6 PRN PRN Reason: Dyspepsia Last Admin: 08/28/17 17:15 Dose: 262 mg Clonidine HCl (Catapres) 0.1 mg PO Q4H PRN PRN Reason: Symptoms of alcohol withdrawl Ergocalciferol (Drisdol 50,000 Intl Units Cap) 1 cap PO Q7D [facility] [place] Last Admin: 08/26/17 12:23 Dose: 1 cap Gabapentin (Neurontin) 300 mg PO TID [facility] [place] Last Admin: 08/31/17 14:03 Dose: 300 mg Hydroxyzine HCl (Atarax) 50 mg PO Q6 PRN PRN Reason: Agitation Last Admin: 08/31/17 07:30 Dose: 50 mg Pantoprazole Sodium (Protonix Ec Tab) 40 mg PO DAILY [facility] [place] Last Admin: 08/31/17 09:29 Dose: 40 mg Quetiapine Fumarate (Seroquel) 200 mg PO HS [facility] [place] Last Admin: 08/30/17 21:15 Dose: 200 mg Sertraline HCl (Zoloft) 200 mg PO DAILY [facility] [place] Last Admin: 08/31/17 09:32 Dose: 200 mg Ursodiol (Actigall) 300 mg PO TID [facility] [place] Last Admin: 08/31/17 13:25 Dose: 300 mg Physical Exam - Constitutional Appears: Well - Head Exam Head Exam: ATRAUMATIC, NORMAL INSPECTION, NORMOCEPHALIC - Eye Exam Eye Exam: EOMI, Normal appearance, PERRL Pupil Exam: NORMAL ACCOMODATION, PERRL - ENT Exam ENT Exam: Mucous Membranes Moist, Normal Exam - Neck Exam Neck exam: Positive for: Normal Inspection - Respiratory Exam Respiratory Exam: Decreased Breath Sounds - Cardiovascular Exam Cardiovascular Exam: REGULAR RHYTHM, +S1, +S2 - GI/Abdominal Exam GI & Abdominal Exam: Diminished Bowel Sounds, Soft - Rectal Exam Rectal Exam: Deferred Results - Vital Signs Recent Vital Signs: Last Vital Signs Temp 97.7 F 08/31/17 06:36 Pulse 78 08/31/17 06:36 Resp 18 08/31/17 06:36 BP 107/61 08/31/17 06:36 Pulse Ox 96 08/25/17 07:17 - Labs Result Diagrams: 08/28/17 13:48 08/28/17 13:48 Assessment & Plan - Assessment and Plan (Free Text) Plan: We will monitor the patient's will monitor alkaline phosphatase and SGOT SGPT is normal other LFTs okay will do the workup as an outpatient Repeat the LFT tomorrow no need to repeat hepatitis B and hepatitis C profile at this time
[2017-09-01] MEDS: Aluminum Hydroxide/Magnesium Hydroxide Susp (30 mL) PO PRN ×2 (06:50→22:29)
[2017-09-01 07:51] LABS: BASO % 0.6 % (0.0-2.0); EOS # 0.2 K/uL (0.0-0.7); EOS % 3.3 % (0.0-4.0); HEMOGLOBIN 14.8 g/dL (12.0-18.0); LYMPH # 1.5 K/uL (1.0-4.3); LYMPH % 23.6 % (20.0-40.0); MEAN CELL VOLUME 90.3 fL (80.0-94.0); MEAN CORPUSCULAR HEMOGLOBIN 31.5 pg (27.0-31.0); MEAN CORPUSCULAR HGB CONC 34.8 g/dL (33.0-37.0); MEAN PLATELET VOLUME 10.4 fL (7.2-11.7); MONO # 0.6 K/uL (0.0-0.8); MONO % 9.9 % (0.0-10.0); NEUT # 3.9 K/uL (1.8-7.0); NEUT % 62.6 % (50.0-75.0); RBC 4.72 Mil/uL (4.40-5.90); RED CELL DISTRIBUTION WIDTH 13.9 % (11.5-14.5); WHITE BLOOD COUNT 6.3 K/uL (4.8-10.8)
[2017-09-01 08:06] LABS: ALB/GLOB RATIO 1.3 (1.0-2.1); ALBUMIN 3.8 g/dL (3.5-5.0); BILIRUBIN,DIRECT 0.1 mg/dL (0.0-0.4)
--- NOTE | 2017-09-01 08:42 | CP.PCM.CON ---
History of Present Illness - History of Present Illness History of Present Illness: Asked to see pt today for abd pain and RB. PMH: gastritis Pt admitted for suicidal ideations and taking OD of psych meds. Pt reports gastritis- which is worse now due to overeating. Reports ZANTAC works best for him.. Meds: Noted. Denies heavy etoh- last heavy etoh was 3 yrs ago Reports BRBPR- x 1- small amount. Review of Systems - Constitutional Constitutional: absent: Fatigue, Fever, Weight Gain, Weight Loss, Weakness - Cardiovascular Cardiovascular: absent: Chest Pain - Respiratory Respiratory: absent: Dyspnea, Hemoptysis, Wheezing - Gastrointestinal Gastrointestinal: Abdominal Pain, Bloating, Hematochezia. absent: Coffee Ground Emesis, Constipation, Diarrhea, Dysphagia, Hematemesis, Loose Stools, Melena, Nausea, Vomiting - Genitourinary Genitourinary: absent: Hematuria - Musculoskeletal Musculoskeletal: absent: Muscle Cramps - Integumentary Integumentary: absent: Jaundice - Neurological Neurological: absent: Abnormal Speech, Convulsions - Psychiatric Psychiatric: Suicidal Ideation Past Patient History - Past Medical History & Family History Past Medical History?: Yes - Past Social History Smoking Status: Heavy Smoker > 10 Cigarettes Daily - CARDIAC Hx Congestive Heart Failure: No - PULMONARY Hx Respiratory Disorders: No - NEUROLOGICAL Hx Seizures: Yes (RELATED TO ETHO ABUSE ) - HEENT Hx HEENT Problems: No - RENAL Hx Chronic Kidney Disease: No - ENDOCRINE/METABOLIC Hx Endocrine Disorders: No - HEMATOLOGICAL/ONCOLOGICAL Hx Human Immunodeficiency Virus (HIV): No - INTEGUMENTARY Hx Dermatological Problems: No - MUSCULOSKELETAL/RHEUMATOLOGICAL Hx Musculoskeletal Disorders: Yes Hx Back Pain: Yes Hx Falls: No Hx Herniated Disk: Yes - GASTROINTESTINAL Hx Gastritis: Yes Hx Pancreatitis: Yes - GENITOURINARY/GYNECOLOGICAL Hx Genitourinary Disorders: No - PSYCHIATRIC Hx Substance Use: Yes - SURGICAL HISTORY Hx Surgeries: Yes Hx Bile Duct Stent: Yes (CBD STENT 2/3 YEARS AGO) Hx Herniorrhaphy: Yes - ANESTHESIA Hx Anesthesia: Yes Hx Anesthesia Reactions: No Hx Malignant Hyperthermia: No Meds Allergies/Adverse Reactions: Allergies Allergy/AdvReac Type Severity Reaction Status Date / Time No Known Allergies Allergy Verified 08/24/17 17:09 - Medications Medications: Current Medications Al Hydrox/Mg Hydrox/Simethicone (Maalox 30 Ml) 30 ml PO Q6 PRN PRN Reason: Indigestion / Heartburn Last Admin: 09/01/17 06:50 Dose: 30 ml Bismuth Subsalicylate (Pepto-Bismol) 262 mg PO Q6 PRN PRN Reason: Dyspepsia Last Admin: 08/28/17 17:15 Dose: 262 mg Clonidine HCl (Catapres) 0.1 mg PO Q4H PRN PRN Reason: Symptoms of alcohol withdrawl Ergocalciferol (Drisdol 50,000 Intl Units Cap) 1 cap PO Q7D [facility] Last Admin: 08/26/17 12:23 Dose: 1 cap Gabapentin (Neurontin) 300 mg PO TID [facility] Last Admin: 08/31/17 17:44 Dose: 300 mg Hydroxyzine HCl (Atarax) 50 mg PO Q6 PRN PRN Reason: Agitation Last Admin: 08/31/17 21:29 Dose: 50 mg Pantoprazole Sodium (Protonix Ec Tab) 40 mg PO DAILY [facility] Last Admin: 08/31/17 09:29 Dose: 40 mg Quetiapine Fumarate (Seroquel) 200 mg PO HS [facility] Last Admin: 08/31/17 21:29 Dose: 200 mg Sertraline HCl (Zoloft) 200 mg PO DAILY [facility] Last Admin: 08/31/17 09:32 Dose: 200 mg Ursodiol (Actigall) 300 mg PO TID [facility] Last Admin: 08/31/17 17:44 Dose: 300 mg Physical Exam - Constitutional Appears: Well - Respiratory Exam Respiratory Exam: Clear to Auscultation Bilateral - Cardiovascular Exam Cardiovascular Exam: RRR - GI/Abdominal Exam GI & Abdominal Exam: Normal Bowel Sounds, Soft. absent: Distended, Guarding, Mass, Rebound, Tenderness - Neurological Exam Neurological exam: Alert, Oriented x3 - Skin Skin Exam: Intact Results - Vital Signs Recent Vital Signs: Last Vital Signs Temp 98 F 09/01/17 06:41 Pulse 67 09/01/17 06:41 Resp 19 09/01/17 06:41 BP 95/63 L 09/01/17 06:41 Pulse Ox 96 08/25/17 07:17 - Labs Result Diagrams: 09/01/17 07:39 08/28/17 13:48 Labs: Laboratory Results - last 24 hr 09/01/17 09/01/17 07:39 07:39 WBC 6.3 RBC 4.72 Hgb 14.8 Hct 42.6 MCV 90.3 MCH 31.5 H MCHC 34.8 RDW 13.9 Plt Count 112 L MPV 10.4 Neut % (Auto) 62.6 Lymph % (Auto) 23.6 Parmer % (Auto) 9.9 Eos % (Auto) 3.3 Baso % (Auto) 0.6 Neut # (Auto) 3.9 Lymph # (Auto) 1.5 Parmer # (Auto) 0.6 Eos # (Auto) 0.2 Baso # (Auto) 0.0 Total Bilirubin 0.3 Direct Bilirubin 0.1 AST 71 H D ALT 79 H D Alkaline Phosphatase 198 H Total Protein 6.8 Albumin 3.8 Globulin 3.0 Albumin/Globulin Ratio 1.3 Assessment & Plan (1) Depression Assessment and Plan: TOok too many psych meds Status: Acute (2) Abdominal pain Assessment and Plan: Gastriits. Pt reports zantac works best Status: Acute (3) Abnormal liver function test Assessment and Plan: Consider fatty liver, or meds. REC: repeat LFTs check hepatitis profile consider abdom sono [place] diet Change protonix to zantac BID Outpatient colonosocpy. Patient is instructed to follow up in office or clinic Status: Acute (4) Rectal bleeding Assessment and Plan: small amount. Check Hb. Outpt colonoscopy. Status: Acute
[2017-09-01] MEDS: Pantoprazole 40 mg EC Tab PO SCH (09:04)
[2017-09-01 10:48] LABS: HEPATITIS B SURFACE AG Negative (NEGATIVE)
[2017-09-01 10:53] LABS: HEPATITIS A IGM NEGATIVE (NEGATIVE); HEPATITIS B CORE AB NEGATIVE (NEGATIVE)
[2017-09-01 11:05] LABS: HEPATITIS C ANTIBODY NEGATIVE (NEGATIVE)
--- NOTE | 2017-09-01 14:24 | PCM.PYCHPN ---
Psychiatric Progress Note - Psychiatric Progress Note Patient seen today, length of contact: 15 min Patient Chief Complaint: "I am better a little" Problems Identified/Issues Discussed: The pt is seen, chart reviewed, case discussed with staff. Support and psychoeducation given, CBT and ME used briefly No new symptoms reported, improving slowly and needs more time No SEs from medications, risks discussed. After care discussed Seen by Dr Valenzuela and GI - help appreciated Labs ordered Will get a colonoscopy as an outpt Anxiety mgt discussed Medication Change: No Medical Record Reviewed: Yes Mental Status Examination - Cognitive Function Orientation: Person, Place, Situation, Time Memory: Intact Attention: Poor Concentration: Poor Association: WNL Fund of Knowledge: WNL - Mood Mood: Depressed - Affect Affect: Constricted - Speech Speech: Appropriate - Formal Thought Process Formal Thought Process: No Impairment - Suicidal Ideation Suicidal Ideation: No - Homicidal Ideation Homicidal Ideation: No Goal/Treatment Plan - Goal/Treatment Plan Need for Continued Stay: Discharge may exacerbated symptoms, Severe functional impairment Progress Toward Problem(s) and Goals/Treatment Plan: Continue Sertraline, Gabapentin, Quetiapine Continue librium taper Attend groups and activities Individual therapy Psychoeducation and support Encourage compliance with meds and after care Refer to outpatient program Teach healthy lifestyle methods, i.e. diet, exercise, meditation Smoking cessation
--- NOTE | 2017-09-01 16:30 | CP.PCM.PN ---
Subjective - Date & Time of Evaluation Date of Evaluation: 09/01/17 Time of Evaluation: 09:20 - Subjective Subjective: clinically same Objective - Vital Signs/Intake and Output Vital Signs (last 24 hours): Temp Pulse Resp BP Pulse Ox 98 F 67 19 95/63 L 96 09/01/17 06:41 09/01/17 06:41 09/01/17 06:41 09/01/17 06:41 08/25/17 07:17 - Medications Medications: Current Medications Al Hydrox/Mg Hydrox/Simethicone (Maalox 30 Ml) 30 ml PO Q6 PRN PRN Reason: Indigestion / Heartburn Last Admin: 09/01/17 06:50 Dose: 30 ml Bismuth Subsalicylate (Pepto-Bismol) 262 mg PO Q6 PRN PRN Reason: Dyspepsia Last Admin: 08/28/17 17:15 Dose: 262 mg Clonidine HCl (Catapres) 0.1 mg PO Q4H PRN PRN Reason: Symptoms of alcohol withdrawl Docusate Sodium (Colace) 100 mg PO BID [facility] Ergocalciferol (Drisdol 50,000 Intl Units Cap) 1 cap PO Q7D [facility] Last Admin: 08/26/17 12:23 Dose: 1 cap Famotidine (Pepcid) 20 mg PO BID [facility] Last Admin: 09/01/17 10:46 Dose: 20 mg Gabapentin (Neurontin) 300 mg PO TID [facility] Last Admin: 09/01/17 13:36 Dose: 300 mg Hydroxyzine HCl (Atarax) 50 mg PO Q6 PRN PRN Reason: Agitation Last Admin: 09/01/17 09:05 Dose: 50 mg Quetiapine Fumarate (Seroquel) 200 mg PO HS [facility] Last Admin: 08/31/17 21:29 Dose: 200 mg Sertraline HCl (Zoloft) 200 mg PO DAILY [facility] Last Admin: 09/01/17 09:03 Dose: 200 mg Ursodiol (Actigall) 300 mg PO TID [facility] Last Admin: 09/01/17 13:36 Dose: 300 mg - Labs Labs: 09/01/17 07:39 08/28/17 13:48 - Constitutional Appears: Well - Head Exam Head Exam: ATRAUMATIC, NORMAL INSPECTION, NORMOCEPHALIC - Eye Exam Eye Exam: EOMI, Normal appearance, PERRL Pupil Exam: NORMAL ACCOMODATION, PERRL - ENT Exam ENT Exam: Mucous Membranes Moist, Normal Exam - Neck Exam Neck Exam: Full ROM, Normal Inspection. absent: Lymphadenopathy - Respiratory Exam Respiratory Exam: Decreased Breath Sounds - Cardiovascular Exam Cardiovascular Exam: REGULAR RHYTHM, +S1, +S2 - GI/Abdominal Exam GI & Abdominal Exam: Soft, Diminished Bowel Sounds - Rectal Exam Rectal Exam: Deferred
[2017-09-02 08:24] LABS: MEAN CELL VOLUME 90.4 fL (80.0-94.0); MEAN CORPUSCULAR HGB CONC 34.3 g/dL (33.0-37.0); MEAN PLATELET VOLUME 10.6 fL (7.2-11.7); RBC 4.82 Mil/uL (4.40-5.90); RED CELL DISTRIBUTION WIDTH 14.4 % (11.5-14.5); WHITE BLOOD COUNT 6.4 K/uL (4.8-10.8)
[2017-09-02 08:38] LABS: ALB/GLOB RATIO 1.2 (1.0-2.1); ALBUMIN 3.9 g/dL (3.5-5.0); BILIRUBIN,DIRECT 0.1 mg/dL (0.0-0.4)
[2017-09-02] MEDS: Ergocalciferol 50,000 Intl Units Cap PO SCH (11:29)
--- NOTE | 2017-09-02 12:47 | CP.PCM.PN ---
Subjective - Date & Time of Evaluation Date of Evaluation: 09/02/17 Time of Evaluation: 12:45 - Subjective Subjective: F/U rectal bleed 1 isolated episode of blood surrounding BM when straining. No recurrence. Hgb stable Review of old records: H/O PSC with 3 ERCP and stent placements in past 2 years for jaundice and cholangitis. Pt states he had colonoscopy at [facility] approx 3 years ago and told it was normal Liver chemistries rising while in hospital, likely from medications Objective - Vital Signs/Intake and Output Vital Signs (last 24 hours): Temp Pulse Resp BP Pulse Ox 97.6 F 75 20 134/68 96 09/02/17 06:26 09/02/17 06:26 09/02/17 06:26 09/02/17 06:26 08/25/17 07:17 - Medications Medications: Current Medications Al Hydrox/Mg Hydrox/Simethicone (Maalox 30 Ml) 30 ml PO Q6 PRN PRN Reason: Indigestion / Heartburn Last Admin: 09/01/17 22:29 Dose: 30 ml Bismuth Subsalicylate (Pepto-Bismol) 262 mg PO Q6 PRN PRN Reason: Dyspepsia Last Admin: 08/28/17 17:15 Dose: 262 mg Clonidine HCl (Catapres) 0.1 mg PO Q4H PRN PRN Reason: Symptoms of alcohol withdrawl Docusate Sodium (Colace) 100 mg PO BID [facility] Last Admin: 09/02/17 09:55 Dose: 100 mg Ergocalciferol (Drisdol 50,000 Intl Units Cap) 1 cap PO Q7D [facility] Last Admin: 09/02/17 11:29 Dose: 1 cap Famotidine (Pepcid) 20 mg PO BID [facility] Last Admin: 09/02/17 09:55 Dose: 20 mg Gabapentin (Neurontin) 300 mg PO TID [facility] Last Admin: 09/02/17 09:55 Dose: 300 mg Hydroxyzine HCl (Atarax) 50 mg PO Q6 PRN PRN Reason: Agitation Last Admin: 09/02/17 06:31 Dose: 50 mg Quetiapine Fumarate (Seroquel) 200 mg PO HS [facility] Last Admin: 09/01/17 21:11 Dose: 200 mg Sertraline HCl (Zoloft) 200 mg PO DAILY [facility] Last Admin: 09/02/17 09:55 Dose: 200 mg Ursodiol (Actigall) 300 mg PO TID [facility] Last Admin: 09/02/17 09:55 Dose: 300 mg - Labs Labs: 09/02/17 08:15 08/28/17 13:48 - Constitutional Appears: Well - Head Exam Head Exam: NORMOCEPHALIC - Eye Exam Eye Exam: absent: Scleral icterus - Cardiovascular Exam Cardiovascular Exam: REGULAR RHYTHM - GI/Abdominal Exam GI & Abdominal Exam: Soft. absent: Tenderness, Mass, Organomegaly Assessment and Plan (1) Major depressive disorder, severe Assessment & Plan: Managed by Psychiatrist Pt presently on Psychiatric stoddard Status: Acute (2) Rectal bleeding Assessment & Plan: By history most likely this is from hemorrhoids/constipation However, in light of history of PSC, pt is high risk for ulcerative colitis and colon cancer and should have colonoscopy [facility] to discuss the feasability of transferring to medical floor so colonoscopy can be done Status: Acute (3) Abnormal liver function test Assessment & Plan: Likely drug induced Rec: monitor LFTs and consider stopping hepatotoxic drugs. To discuss with dr Ling Status: Acute (4) Primary sclerosing cholangitis Assessment & Plan: No evidence of cholangitis at present. S/P biliary stents by Dr Rodriguez High risk for colon cancer Colonoscopy recommended. See above. Status: Acute
--- NOTE | 2017-09-02 16:52 | PCM.PYCHPN ---
Psychiatric Progress Note - Psychiatric Progress Note Patient seen today, length of contact: 18 min Patient Chief Complaint: "I am anxious" Problems Identified/Issues Discussed: The pt is seen, chart reviewed, case discussed with staff. [employer] discussed with Dr. Valenzuela and They recommended transfer to medicine b/c of GI bleed and pt has a higher risk of cancer He understood but remains anxious Zoloft and seroquel decreased due to elevated LFTs Support and psychoed ghiven Not krystyna/homi, no need for 1:1 - he contracts for safety and was supposed to be d /c'ed from [facility] by Thursday Medication Change: Yes (see hpi) Medical Record Reviewed: Yes Mental Status Examination - Cognitive Function Orientation: Person, Place, Situation, Time Memory: Intact Attention: Poor Concentration: Poor Association: WNL Fund of Knowledge: WNL - Mood Mood: Depressed - Affect Affect: Constricted - Speech Speech: Appropriate - Formal Thought Process Formal Thought Process: No Impairment - Suicidal Ideation Suicidal Ideation: No - Homicidal Ideation Homicidal Ideation: No Goal/Treatment Plan - Goal/Treatment Plan Need for Continued Stay: Discharge may exacerbated symptoms, Severe functional impairment Progress Toward Problem(s) and Goals/Treatment Plan: Continue Sertraline, Gabapentin, Quetiapine but lower doses Transfer to medicine Attend groups and activities Individual therapy Psychoeducation and support Encourage compliance with meds and after care Refer to outpatient program Teach healthy lifestyle methods, i.e. diet, exercise, meditation Smoking cessation
--- NOTE | 2017-09-02 20:05 | CP.PCM.PN ---
Subjective - Date & Time of Evaluation Date of Evaluation: 09/02/17 Time of Evaluation: 07:00 - Subjective Subjective: clinically same Objective - Vital Signs/Intake and Output Vital Signs (last 24 hours): Temp Pulse Resp BP Pulse Ox 97.6 F 69 20 124/81 96 09/02/17 06:26 09/02/17 15:49 09/02/17 06:26 09/02/17 15:49 08/25/17 07:17 - Medications Medications: Current Medications Al Hydrox/Mg Hydrox/Simethicone (Maalox 30 Ml) 30 ml PO Q6 PRN PRN Reason: Indigestion / Heartburn Last Admin: 09/01/17 22:29 Dose: 30 ml Bismuth Subsalicylate (Pepto-Bismol) 262 mg PO Q6 PRN PRN Reason: Dyspepsia Last Admin: 08/28/17 17:15 Dose: 262 mg Clonidine HCl (Catapres) 0.1 mg PO Q4H PRN PRN Reason: Symptoms of alcohol withdrawl Docusate Sodium (Colace) 100 mg PO BID [facility] Last Admin: 09/02/17 17:49 Dose: 100 mg Ergocalciferol (Drisdol 50,000 Intl Units Cap) 1 cap PO Q7D [facility] Last Admin: 09/02/17 11:29 Dose: 1 cap Famotidine (Pepcid) 20 mg PO BID [facility] Last Admin: 09/02/17 17:48 Dose: 20 mg Gabapentin (Neurontin) 300 mg PO TID [facility] Last Admin: 09/02/17 17:48 Dose: 300 mg Hydroxyzine HCl (Atarax) 50 mg PO Q6 PRN PRN Reason: Agitation Last Admin: 09/02/17 13:41 Dose: 50 mg Quetiapine Fumarate (Seroquel) 100 mg PO [facility] Sertraline HCl (Zoloft) 200 mg PO DAILY [facility] Last Admin: 09/02/17 09:55 Dose: 200 mg Ursodiol (Actigall) 300 mg PO TID [facility] Last Admin: 09/02/17 17:48 Dose: 300 mg - Labs Labs: 09/02/17 08:15 08/28/17 13:48 - Constitutional Appears: Well - Head Exam Head Exam: ATRAUMATIC, NORMAL INSPECTION, NORMOCEPHALIC - Eye Exam Eye Exam: EOMI, Normal appearance, PERRL Pupil Exam: NORMAL ACCOMODATION, PERRL - ENT Exam ENT Exam: Mucous Membranes Moist, Normal Exam - Neck Exam Neck Exam: Full ROM, Normal Inspection. absent: Lymphadenopathy - Respiratory Exam Respiratory Exam: Decreased Breath Sounds - Cardiovascular Exam Cardiovascular Exam: REGULAR RHYTHM, +S1, +S2 - GI/Abdominal Exam GI & Abdominal Exam: Soft, Diminished Bowel Sounds - Rectal Exam Rectal Exam: Deferred Assessment and Plan (1) Depression Status: Acute (2) Major depressive disorder, severe Status: Acute (3) Primary sclerosing cholangitis Status: Acute (4) Rectal bleeding Status: Acute (5) Abdominal colic Status: Acute (6) Abdominal pain Status: Acute (7) Abnormal liver function test Status: Acute (8) Cholangitis Status: Acute (9) Cholecystitis Status: Acute (10) Pneumobilia Status: Acute (11) Sepsis Status: Acute - Assessment and Plan (Free Text) Plan: for colonosocpy for gi bleed psych followup hold anticoaguation ekg tmorrow cbc cmp tomrrow am
--- NOTE | 2017-09-03 10:02 | CP.PCM.PN ---
Subjective - Date & Time of Evaluation Date of Evaluation: 09/03/17 Time of Evaluation: 09:59 - Subjective Subjective: F/U RB. Denies RB, melena, fever, chills, SZ, LOc, ROSE, cough, CP, SOb. Pt seen with RN. Reports occ abdom pain from his gastritis. Objective - Vital Signs/Intake and Output Vital Signs (last 24 hours): Temp Pulse Resp BP Pulse Ox 97.4 F L 71 20 100/63 95 09/03/17 08:00 09/03/17 08:00 09/03/17 08:00 09/03/17 08:00 09/03/17 08:00 Intake and Output: 09/03/17 09/03/17 06:59 18:59 Intake Total 540 Balance 540 - Medications Medications: Current Medications Al Hydrox/Mg Hydrox/Simethicone (Maalox 30 Ml) 30 ml PO Q6 PRN PRN Reason: Indigestion / Heartburn Last Admin: 09/01/17 22:29 Dose: 30 ml Bismuth Subsalicylate (Pepto-Bismol) 262 mg PO Q6 PRN PRN Reason: Dyspepsia Last Admin: 08/28/17 17:15 Dose: 262 mg Clonidine HCl (Catapres) 0.1 mg PO Q4H PRN PRN Reason: Symptoms of alcohol withdrawl Last Admin: 09/03/17 00:36 Dose: 0.1 mg Docusate Sodium (Colace) 100 mg PO BID [facility] Last Admin: 09/02/17 17:49 Dose: 100 mg Ergocalciferol (Drisdol 50,000 Intl Units Cap) 1 cap PO Q7D [facility] Last Admin: 09/02/17 11:29 Dose: 1 cap Famotidine (Pepcid) 20 mg PO BID [facility] Last Admin: 09/02/17 17:48 Dose: 20 mg Gabapentin (Neurontin) 300 mg PO TID [facility] Last Admin: 09/02/17 17:48 Dose: 300 mg Hydroxyzine HCl (Atarax) 50 mg PO Q6 PRN PRN Reason: Agitation Last Admin: 09/02/17 22:03 Dose: 50 mg Quetiapine Fumarate (Seroquel) 100 mg PO HS [facility] Last Admin: 09/02/17 21:55 Dose: 100 mg Sertraline HCl (Zoloft) 150 mg PO DAILY [facility] Ursodiol (Actigall) 300 mg PO TID [facility] Last Admin: 09/02/17 17:48 Dose: 300 mg - Labs Labs: 09/02/17 08:15 08/28/17 13:48 - Constitutional Appears: Well - Respiratory Exam Respiratory Exam: Clear to Ausculation Bilateral - Cardiovascular Exam Cardiovascular Exam: RRR - GI/Abdominal Exam GI & Abdominal Exam: Soft, Normal Bowel Sounds. absent: Guarding, Tenderness, Mass, Rebound - Extremities Exam Extremities Exam: absent: Pedal Edema - Neurological Exam Neurological Exam: Alert, Oriented x3 Assessment and Plan (1) Depression Assessment & Plan: Not suicidal at present Status: Acute (2) Abdominal pain Assessment & Plan: Gastritis- better. Status: Acute (3) Abnormal liver function test Assessment & Plan: After meds OD. Follow LFTs. Also h/o PSC. Status: Acute (4) Rectal bleeding Assessment & Plan: For colonsocopy thursday Status: Acute
--- NOTE | 2017-09-03 12:38 | PCM.PYCHPN ---
Psychiatric Progress Note - Psychiatric Progress Note Patient seen today, length of contact: 16 min Patient Chief Complaint: "I am still anxious" Problems Identified/Issues Discussed: The pt is seen, chart reviewed, case discussed with staff. His [facility] case resource manager was bed site. He is now in 3T med unit for GI bleed and colonoscopy Consult requested by Dr. Valenzuela Support and pscyhoed given Baseline depression/anxiety going on - ativan added for 2 days Not suicidal/homi. Medication Change: Yes (decrease zoloft) Medical Record Reviewed: Yes Mental Status Examination - Cognitive Function Orientation: Person, Place, Situation, Time Memory: Intact Attention: Poor Concentration: Poor Association: WNL Fund of Knowledge: WNL - Mood Mood: Depressed - Affect Affect: Constricted - Speech Speech: Appropriate - Formal Thought Process Formal Thought Process: No Impairment - Suicidal Ideation Suicidal Ideation: No - Homicidal Ideation Homicidal Ideation: No Goal/Treatment Plan - Goal/Treatment Plan Need for Continued Stay: Discharge may exacerbated symptoms, Severe functional impairment Progress Toward Problem(s) and Goals/Treatment Plan: Continue Sertraline, Gabapentin, Quetiapine but lower doses Transferred to medicine Psychoeducation and support Encourage compliance with meds and after care Refer to outpatient program Teach healthy lifestyle methods, i.e. diet, exercise, meditation Smoking cessation Pt can be d/c'ed home when medical treatment ends. He has an appointment with [facility] for psych f/u
[2017-09-03] MEDS ORDERED: Bisacodyl 5mg EC Tab PO ONE (17:00)
[2017-09-03] MEDS ORDERED: Peg-Electrolyte Oral Soln 4L (Golytely) PO ONE (19:00)
--- NOTE | 2017-09-03 19:13 | CP.PCM.PN ---
Subjective - Date & Time of Evaluation Date of Evaluation: 09/03/17 Time of Evaluation: 07:00 - Subjective Subjective: clinically same Objective - Vital Signs/Intake and Output Vital Signs (last 24 hours): Temp Pulse Resp BP Pulse Ox 97.9 F 67 20 110/70 95 09/03/17 16:00 09/03/17 16:00 09/03/17 16:00 09/03/17 16:00 09/03/17 16:00 - Medications Medications: Current Medications Al Hydrox/Mg Hydrox/Simethicone (Maalox 30 Ml) 30 ml PO Q6 PRN PRN Reason: Indigestion / Heartburn Last Admin: 09/01/17 22:29 Dose: 30 ml Bismuth Subsalicylate (Pepto-Bismol) 262 mg PO Q6 PRN PRN Reason: Dyspepsia Last Admin: 08/28/17 17:15 Dose: 262 mg Clonidine HCl (Catapres) 0.1 mg PO Q4H PRN PRN Reason: Symptoms of alcohol withdrawl Last Admin: 09/03/17 00:36 Dose: 0.1 mg Docusate Sodium (Colace) 100 mg PO BID [facility] Last Admin: 09/03/17 17:29 Dose: 100 mg Ergocalciferol (Drisdol 50,000 Intl Units Cap) 1 cap PO Q7D [facility] Last Admin: 09/02/17 11:29 Dose: 1 cap Famotidine (Pepcid) 20 mg PO BID [facility] Last Admin: 09/03/17 17:30 Dose: 20 mg Gabapentin (Neurontin) 300 mg PO TID [facility] Last Admin: 09/03/17 17:30 Dose: 300 mg Hydroxyzine HCl (Atarax) 50 mg PO Q6 PRN PRN Reason: Agitation Last Admin: 09/03/17 11:02 Dose: 50 mg Lorazepam (Ativan) 0.5 mg PO TID [facility] Last Admin: 09/03/17 17:29 Dose: 0.5 mg Quetiapine Fumarate (Seroquel) 100 mg PO HS [facility] Last Admin: 09/02/17 21:55 Dose: 100 mg Sertraline HCl (Zoloft) 150 mg PO DAILY [facility] Last Admin: 09/03/17 11:02 Dose: 150 mg Ursodiol (Actigall) 300 mg PO TID [facility] Last Admin: 09/03/17 17:29 Dose: 300 mg - Labs Labs: 09/02/17 08:15 08/28/17 13:48 - Constitutional Appears: Well - Head Exam Head Exam: ATRAUMATIC, NORMAL INSPECTION, NORMOCEPHALIC - Eye Exam Eye Exam: EOMI, Normal appearance, PERRL Pupil Exam: NORMAL ACCOMODATION, PERRL - ENT Exam ENT Exam: Mucous Membranes Moist, Normal Exam - Neck Exam Neck Exam: Full ROM, Normal Inspection. absent: Lymphadenopathy - Respiratory Exam Respiratory Exam: Decreased Breath Sounds - Cardiovascular Exam Cardiovascular Exam: REGULAR RHYTHM, +S1, +S2 - GI/Abdominal Exam GI & Abdominal Exam: Soft, Diminished Bowel Sounds - Rectal Exam Rectal Exam: Deferred Assessment and Plan (1) Depression Status: Acute (2) Major depressive disorder, severe Status: Acute (3) Primary sclerosing cholangitis Status: Acute (4) Rectal bleeding Status: Acute (5) Abdominal colic Status: Acute (6) Abdominal pain Status: Acute (7) Abnormal liver function test Status: Acute (8) Cholangitis Status: Acute (9) Cholecystitis Status: Acute (10) Pneumobilia Status: Acute (11) Sepsis Status: Acute
[2017-09-04] MEDS ORDERED: Propofol 10 mg/ml Inj (20 ML) ONE ×2 (12:44)
[2017-09-04] MEDS ORDERED: Midazolam 2 MG/2 ML VIAL ONE (12:44)
[2017-09-04] MEDS ORDERED: Lactated Ringer's 1,000 ML IV ONE (13:10)
[2017-09-04 16:00] VITALS: RESP 20
--- NOTE | 2017-09-04 19:28 | CP.PCM.PN ---
Subjective - Date & Time of Evaluation Date of Evaluation: 09/04/17 Time of Evaluation: 07:00 - Subjective Subjective: clinically same Objective - Vital Signs/Intake and Output Vital Signs (last 24 hours): Temp Pulse Resp BP Pulse Ox 98.1 F 72 20 120/69 95 09/04/17 15:58 09/04/17 15:58 09/04/17 15:58 09/04/17 15:58 09/04/17 15:58 Intake and Output: 09/04/17 09/05/17 18:59 06:59 Intake Total 1100 Balance 1100 - Medications Medications: Current Medications Al Hydrox/Mg Hydrox/Simethicone (Maalox 30 Ml) 30 ml PO Q6 PRN PRN Reason: Indigestion / Heartburn Last Admin: 09/01/17 22:29 Dose: 30 ml Bismuth Subsalicylate (Pepto-Bismol) 262 mg PO Q6 PRN PRN Reason: Dyspepsia Last Admin: 08/28/17 17:15 Dose: 262 mg Clonidine HCl (Catapres) 0.1 mg PO Q4H PRN PRN Reason: Symptoms of alcohol withdrawl Last Admin: 09/03/17 00:36 Dose: 0.1 mg Docusate Sodium (Colace) 100 mg PO BID [facility] Last Admin: 09/04/17 17:28 Dose: 100 mg Ergocalciferol (Drisdol 50,000 Intl Units Cap) 1 cap PO Q7D [facility] Last Admin: 09/02/17 11:29 Dose: 1 cap Famotidine (Pepcid) 20 mg PO BID [facility] Last Admin: 09/04/17 17:28 Dose: 20 mg Gabapentin (Neurontin) 300 mg PO TID [facility] Last Admin: 09/04/17 17:28 Dose: 300 mg Hydroxyzine HCl (Atarax) 50 mg PO Q6 PRN PRN Reason: Agitation Last Admin: 09/03/17 11:02 Dose: 50 mg Lorazepam (Ativan) 0.5 mg PO TID [facility] Last Admin: 09/04/17 17:28 Dose: 0.5 mg Quetiapine Fumarate (Seroquel) 100 mg PO HS [facility] Last Admin: 09/03/17 22:17 Dose: 100 mg Sertraline HCl (Zoloft) 150 mg PO DAILY [facility] Last Admin: 09/04/17 11:24 Dose: Not Given Ursodiol (Actigall) 300 mg PO TID [facility] Last Admin: 09/04/17 13:20 Dose: Not Given - Labs Labs: 09/02/17 08:15 08/28/17 13:48 - Constitutional Appears: Well - Head Exam Head Exam: ATRAUMATIC, NORMAL INSPECTION, NORMOCEPHALIC - Eye Exam Eye Exam: EOMI, Normal appearance, PERRL Pupil Exam: NORMAL ACCOMODATION, PERRL - ENT Exam ENT Exam: Mucous Membranes Moist, Normal Exam - Neck Exam Neck Exam: Full ROM, Normal Inspection. absent: Lymphadenopathy - Respiratory Exam Respiratory Exam: Decreased Breath Sounds - Cardiovascular Exam Cardiovascular Exam: REGULAR RHYTHM, +S1, +S2 - GI/Abdominal Exam GI & Abdominal Exam: Soft, Diminished Bowel Sounds - Rectal Exam Rectal Exam: Deferred Assessment and Plan (1) Depression Status: Acute (2) Major depressive disorder, severe Status: Acute (3) Primary sclerosing cholangitis Status: Acute (4) Rectal bleeding Status: Acute (5) Abdominal colic Status: Acute (6) Abdominal pain Status: Acute (7) Abnormal liver function test Status: Acute (8) Cholangitis Status: Acute (9) Cholecystitis Status: Acute (10) Pneumobilia Status: Acute (11) Sepsis Status: Acute
[2017-09-05 08:00] LABS: ALB/GLOB RATIO 1.2 (1.0-2.1); ALBUMIN 3.4 g/dL (3.5-5.0)
--- NOTE | 2017-09-05 12:20 | CARD ---
APPROVED REPORT EKG Measurement Heart [id number] <Conclusion> Normal sinus rhythm Possible Left atrial enlargement Borderline ECG
--- NOTE | 2017-09-05 12:47 | CP.PCM.PN ---
Subjective - Date & Time of Evaluation Date of Evaluation: 09/05/17 Time of Evaluation: 07:00 - Subjective Subjective: clinically same Objective - Vital Signs/Intake and Output Vital Signs (last 24 hours): Temp Pulse Resp BP Pulse Ox 98 F 76 20 124/77 96 09/05/17 08:02 09/05/17 08:02 09/05/17 08:02 09/05/17 08:02 09/05/17 08:02 Intake and Output: 09/05/17 09/05/17 06:59 18:59 Intake Total 1340 Balance 1340 - Medications Medications: Current Medications Al Hydrox/Mg Hydrox/Simethicone (Maalox 30 Ml) 30 ml PO Q6 PRN PRN Reason: Indigestion / Heartburn Last Admin: 09/01/17 22:29 Dose: 30 ml Bismuth Subsalicylate (Pepto-Bismol) 262 mg PO Q6 PRN PRN Reason: Dyspepsia Last Admin: 08/28/17 17:15 Dose: 262 mg Clonidine HCl (Catapres) 0.1 mg PO Q4H PRN PRN Reason: Symptoms of alcohol withdrawl Last Admin: 09/03/17 00:36 Dose: 0.1 mg Docusate Sodium (Colace) 100 mg PO BID [facility] Last Admin: 09/05/17 10:15 Dose: 100 mg Ergocalciferol (Drisdol 50,000 Intl Units Cap) 1 cap PO Q7D [facility] Last Admin: 09/02/17 11:29 Dose: 1 cap Famotidine (Pepcid) 20 mg PO BID [facility] Last Admin: 09/05/17 10:16 Dose: 20 mg Gabapentin (Neurontin) 300 mg PO TID [facility] Last Admin: 09/05/17 10:15 Dose: 300 mg Hydroxyzine HCl (Atarax) 50 mg PO Q6 PRN PRN Reason: Agitation Last Admin: 09/03/17 11:02 Dose: 50 mg Lorazepam (Ativan) 0.5 mg PO TID [facility] Last Admin: 09/05/17 10:16 Dose: 0.5 mg Quetiapine Fumarate (Seroquel) 100 mg PO HS [facility] Last Admin: 09/04/17 21:59 Dose: 100 mg Sertraline HCl (Zoloft) 150 mg PO DAILY [facility] Last Admin: 09/05/17 10:15 Dose: 150 mg Ursodiol (Actigall) 300 mg PO TID [facility] Last Admin: 09/05/17 10:15 Dose: 300 mg - Labs Labs: 09/02/17 08:15 08/28/17 13:48 - Constitutional Appears: Well - Head Exam Head Exam: ATRAUMATIC, NORMAL INSPECTION, NORMOCEPHALIC - Eye Exam Eye Exam: EOMI, Normal appearance, PERRL Pupil Exam: NORMAL ACCOMODATION, PERRL - ENT Exam ENT Exam: Mucous Membranes Moist, Normal Exam - Neck Exam Neck Exam: Full ROM, Normal Inspection. absent: Lymphadenopathy - Respiratory Exam Respiratory Exam: Decreased Breath Sounds - Cardiovascular Exam Cardiovascular Exam: REGULAR RHYTHM, +S1, +S2 - GI/Abdominal Exam GI & Abdominal Exam: Soft, Diminished Bowel Sounds - Rectal Exam Rectal Exam: Deferred Assessment and Plan (1) Depression Status: Acute (2) Major depressive disorder, severe Status: Acute (3) Primary sclerosing cholangitis Status: Acute (4) Rectal bleeding Status: Acute (5) Abdominal colic Status: Acute (6) Abdominal pain Status: Acute (7) Abnormal liver function test Status: Acute (8) Cholangitis Status: Acute (9) Cholecystitis Status: Acute (10) Pneumobilia Status: Acute (11) Sepsis Status: Acute
--- NOTE | 2017-09-05 13:13 | CP.PCM.PN ---
Subjective - Date & Time of Evaluation Date of Evaluation: 09/05/17 Time of Evaluation: 13:10 - Subjective Subjective: COVERING DR ERIC/FILIPE No complaints. NO further bleeding. Has some upper abdominal pains LFTs observed to be slightly higher today. Baseline levels not known to me with PSC. Objective - Vital Signs/Intake and Output Vital Signs (last 24 hours): Temp Pulse Resp BP Pulse Ox 98 F 76 20 124/77 96 09/05/17 08:02 09/05/17 08:02 09/05/17 08:02 09/05/17 08:02 09/05/17 08:02 Intake and Output: 09/05/17 09/05/17 06:59 18:59 Intake Total 1340 Balance 1340 - Medications Medications: Current Medications Al Hydrox/Mg Hydrox/Simethicone (Maalox 30 Ml) 30 ml PO Q6 PRN PRN Reason: Indigestion / Heartburn Last Admin: 09/01/17 22:29 Dose: 30 ml Bismuth Subsalicylate (Pepto-Bismol) 262 mg PO Q6 PRN PRN Reason: Dyspepsia Last Admin: 08/28/17 17:15 Dose: 262 mg Clonidine HCl (Catapres) 0.1 mg PO Q4H PRN PRN Reason: Symptoms of alcohol withdrawl Last Admin: 09/03/17 00:36 Dose: 0.1 mg Docusate Sodium (Colace) 100 mg PO BID [facility] Last Admin: 09/05/17 10:15 Dose: 100 mg Ergocalciferol (Drisdol 50,000 Intl Units Cap) 1 cap PO Q7D [facility] Last Admin: 09/02/17 11:29 Dose: 1 cap Famotidine (Pepcid) 20 mg PO BID [facility] Last Admin: 09/05/17 10:16 Dose: 20 mg Gabapentin (Neurontin) 300 mg PO TID [facility] Last Admin: 09/05/17 10:15 Dose: 300 mg Hydroxyzine HCl (Atarax) 50 mg PO Q6 PRN PRN Reason: Agitation Last Admin: 09/03/17 11:02 Dose: 50 mg Lorazepam (Ativan) 0.5 mg PO TID [facility] Last Admin: 09/05/17 10:16 Dose: 0.5 mg Quetiapine Fumarate (Seroquel) 100 mg PO HS [facility] Last Admin: 09/04/17 21:59 Dose: 100 mg Sertraline HCl (Zoloft) 150 mg PO DAILY [facility] Last Admin: 09/05/17 10:15 Dose: 150 mg Ursodiol (Actigall) 300 mg PO TID [facility] Last Admin: 09/05/17 10:15 Dose: 300 mg - Labs Labs: 09/02/17 08:15 08/28/17 13:48 - Constitutional Appears: No Acute Distress - Head Exam Head Exam: ATRAUMATIC, NORMOCEPHALIC - Respiratory Exam Respiratory Exam: NORMAL BREATHING PATTERN - Cardiovascular Exam Cardiovascular Exam: REGULAR RHYTHM, +S1 - GI/Abdominal Exam GI & Abdominal Exam: Soft, Normal Bowel Sounds. absent: Tenderness, Mass, Rebound Assessment and Plan (1) Abnormal transaminases Assessment & Plan: Elevation noted. ?due to meds or PSC. No current pain or signs of infection. Will continue to observe. Unclear as to timing of stent intervention. F/U with Dr Rodriguez? Status: Acute (2) Rectal polyp Assessment & Plan: Awaiting pathology. Appeared to be benign. Status: Acute (3) Primary sclerosing cholangitis Assessment & Plan: S/P biliary stenting with Dr Rodriguez. On Barbara as well. Monitor LFT's. Status: Acute (4) Rectal bleeding Assessment & Plan: No further bleeding. Likely hemorrhoidal source? Status: Acute
[2017-09-05] MEDS ORDERED: Calcium Carbonate 500 mg Chewable Antacid Tab PO PRN (16:28)
[2017-09-05] MEDS: Aluminum Hydroxide/Magnesium Hydroxide Susp (30 mL) PO PRN (18:35)
[2017-09-06] MEDS: Aluminum Hydroxide/Magnesium Hydroxide Susp (30 mL) PO PRN ×2 (00:02→16:44)
[2017-09-06 12:14] LABS: ALB/GLOB RATIO 1.1 (1.0-2.1); ALBUMIN 3.8 g/dL (3.5-5.0); BILIRUBIN,DIRECT 0.4 mg/dL (0.0-0.4)
--- NOTE | 2017-09-06 13:37 | CP.PCM.PN ---
Subjective - Date & Time of Evaluation Date of Evaluation: 09/06/17 Time of Evaluation: 13:35 - Subjective Subjective: COVERING DR ERIC/FILIPE No new complaints. LFTs continue to rise. Objective - Vital Signs/Intake and Output Vital Signs (last 24 hours): Temp Pulse Resp BP Pulse Ox 98.1 F 77 20 116/76 96 09/06/17 07:52 09/06/17 07:52 09/06/17 07:52 09/06/17 07:52 09/06/17 07:52 Intake and Output: 09/06/17 09/06/17 06:59 18:59 Intake Total 760 Balance 760 - Medications Medications: Current Medications Al Hydrox/Mg Hydrox/Simethicone (Maalox 30 Ml) 30 ml PO Q6 PRN PRN Reason: Indigestion / Heartburn Last Admin: 09/06/17 00:02 Dose: 30 ml Bismuth Subsalicylate (Pepto-Bismol) 262 mg PO Q6 PRN PRN Reason: Dyspepsia Last Admin: 08/28/17 17:15 Dose: 262 mg Clonidine HCl (Catapres) 0.1 mg PO Q4H PRN PRN Reason: Symptoms of alcohol withdrawl Last Admin: 09/03/17 00:36 Dose: 0.1 mg Docusate Sodium (Colace) 100 mg PO BID [facility] Last Admin: 09/06/17 10:19 Dose: 100 mg Ergocalciferol (Drisdol 50,000 Intl Units Cap) 1 cap PO Q7D [facility] Last Admin: 09/02/17 11:29 Dose: 1 cap Famotidine (Pepcid) 20 mg PO BID [facility] Last Admin: 09/06/17 10:19 Dose: 20 mg Gabapentin (Neurontin) 300 mg PO TID [facility] Last Admin: 09/06/17 10:19 Dose: 300 mg Hydroxyzine HCl (Atarax) 50 mg PO Q6 PRN PRN Reason: Agitation Last Admin: 09/05/17 21:17 Dose: 50 mg Lorazepam (Ativan) 0.5 mg PO TID [facility] Last Admin: 09/06/17 10:19 Dose: 0.5 mg Quetiapine Fumarate (Seroquel) 100 mg PO [facility] Last Admin: 09/05/17 21:17 Dose: 100 mg Sertraline HCl (Zoloft) 150 mg PO DAILY [facility] Last Admin: 09/06/17 10:18 Dose: 150 mg Ursodiol (Actigall) 300 mg PO TID [facility] Last Admin: 09/06/17 10:19 Dose: 300 mg - Labs Labs: 09/02/17 08:15 08/28/17 13:48 - Constitutional Appears: No Acute Distress - Head Exam Head Exam: ATRAUMATIC, NORMOCEPHALIC - Respiratory Exam Respiratory Exam: NORMAL BREATHING PATTERN - Cardiovascular Exam Cardiovascular Exam: REGULAR RHYTHM - GI/Abdominal Exam GI & Abdominal Exam: Soft, Normal Bowel Sounds. absent: Distended, Tenderness, Mass, Rebound Assessment and Plan (1) Abnormal transaminases Assessment & Plan: Elevation may be due to Seroquel. Would advise discontinuing or changing to alternative Rx and observing enzymes. Doubt due to stent occlusion at present. Reports that LFTs were normal prior to this admission. Status: Acute (2) Rectal polyp Assessment & Plan: path pending appears benign from photos Status: Acute (3) Primary sclerosing cholangitis Status: Chronic (4) Rectal bleeding Assessment & Plan: resolved at present. Status: Resolved
--- NOTE | 2017-09-06 16:00 | CP.PCM.PN ---
Subjective - Date & Time of Evaluation Date of Evaluation: 09/06/17 Time of Evaluation: 07:00 - Subjective Subjective: clinically same Objective - Vital Signs/Intake and Output Vital Signs (last 24 hours): Temp Pulse Resp BP Pulse Ox 98.1 F 77 20 116/76 96 09/06/17 07:52 09/06/17 07:52 09/06/17 07:52 09/06/17 07:52 09/06/17 07:52 Intake and Output: 09/06/17 09/06/17 06:59 18:59 Intake Total 760 480 Balance 760 480 - Medications Medications: Current Medications Al Hydrox/Mg Hydrox/Simethicone (Maalox 30 Ml) 30 ml PO Q6 PRN PRN Reason: Indigestion / Heartburn Last Admin: 09/06/17 00:02 Dose: 30 ml Bismuth Subsalicylate (Pepto-Bismol) 262 mg PO Q6 PRN PRN Reason: Dyspepsia Last Admin: 08/28/17 17:15 Dose: 262 mg Clonidine HCl (Catapres) 0.1 mg PO Q4H PRN PRN Reason: Symptoms of alcohol withdrawl Last Admin: 09/03/17 00:36 Dose: 0.1 mg Docusate Sodium (Colace) 100 mg PO BID [facility] Last Admin: 09/06/17 10:19 Dose: 100 mg Ergocalciferol (Drisdol 50,000 Intl Units Cap) 1 cap PO Q7D [facility] Last Admin: 09/02/17 11:29 Dose: 1 cap Famotidine (Pepcid) 20 mg PO BID [facility] Last Admin: 09/06/17 10:19 Dose: 20 mg Gabapentin (Neurontin) 300 mg PO TID [facility] Last Admin: 09/06/17 13:41 Dose: 300 mg Hydroxyzine HCl (Atarax) 50 mg PO Q6 PRN PRN Reason: Agitation Last Admin: 09/05/17 21:17 Dose: 50 mg Lorazepam (Ativan) 0.5 mg PO TID [facility] Last Admin: 09/06/17 13:41 Dose: 0.5 mg Quetiapine Fumarate (Seroquel) 100 mg PO HS [facility] Last Admin: 09/05/17 21:17 Dose: 100 mg Sertraline HCl (Zoloft) 150 mg PO DAILY [facility] Last Admin: 09/06/17 10:18 Dose: 150 mg Ursodiol (Actigall) 300 mg PO TID [facility] Last Admin: 09/06/17 13:41 Dose: 300 mg - Labs Labs: 09/02/17 08:15 08/28/17 13:48 - Constitutional Appears: Well - Head Exam Head Exam: ATRAUMATIC, NORMAL INSPECTION, NORMOCEPHALIC - Eye Exam Eye Exam: EOMI, Normal appearance, PERRL Pupil Exam: NORMAL ACCOMODATION, PERRL - ENT Exam ENT Exam: Mucous Membranes Moist, Normal Exam - Neck Exam Neck Exam: Full ROM, Normal Inspection. absent: Lymphadenopathy - Respiratory Exam Respiratory Exam: Decreased Breath Sounds - Cardiovascular Exam Cardiovascular Exam: REGULAR RHYTHM, +S1, +S2 - GI/Abdominal Exam GI & Abdominal Exam: Soft, Diminished Bowel Sounds - Rectal Exam Rectal Exam: Deferred Assessment and Plan (1) Depression Status: Acute (2) Major depressive disorder, severe Status: Acute (3) Primary sclerosing cholangitis Status: Chronic (4) Rectal bleeding Status: Resolved (5) Abdominal colic Status: Acute (6) Abdominal pain Status: Acute (7) Abnormal liver function test Status: Acute (8) Cholangitis Status: Acute (9) Cholecystitis Status: Acute (10) Pneumobilia Status: Acute (11) Sepsis Status: Acute
[2017-09-07 08:20] LABS: ALB/GLOB RATIO 1.4 (1.0-2.1); BILIRUBIN,DIRECT 0.5 mg/dL (0.0-0.4)
--- NOTE | 2017-09-07 11:40 | PCM.PYCHPN ---
Psychiatric Progress Note - Psychiatric Progress Note Patient seen today, length of contact: 15 min Patient Chief Complaint: "I can't sleep well" Problems Identified/Issues Discussed: He is seen, chart reviewed and case discussed He is still in the hospital bc of elevated LFTs - spoke to his GI and will d/ c seroquel No SI, HI , AVH or del - but still depressed Will give gabapentin as it is safe for the liver Support given Has an appt for outpt already Psych will sign off - cleared for d/c Medication Change: Yes (dc seroquel) Medical Record Reviewed: Yes Mental Status Examination - Cognitive Function Orientation: Person, Place, Situation, Time Memory: Intact Attention: WNL Concentration: Poor Association: WNL Fund of Knowledge: WNL - Mood Mood: Depressed - Affect Affect: Constricted - Speech Speech: Appropriate - Formal Thought Process Formal Thought Process: No Impairment - Suicidal Ideation Suicidal Ideation: No - Homicidal Ideation Homicidal Ideation: No Goal/Treatment Plan - Goal/Treatment Plan Need for Continued Stay: Other (medical) Progress Toward Problem(s) and Goals/Treatment Plan: Continue Sertraline, Gabapentin, add remeron 15 for insomnia DC Quetiapine due to elevated LFTs Psychoeducation and support Encourage compliance with meds and after care Refer to outpatient program Teach healthy lifestyle methods, i.e. diet, exercise, meditation Smoking cessation Pt can be d/c'ed home when medical treatment ends. He has an appointment with [facility] for psych f/u Psych will sign off
--- NOTE | 2017-09-07 15:29 | CP.PCM.PN ---
Subjective - Date & Time of Evaluation Date of Evaluation: 09/07/17 Time of Evaluation: 15:27 - Subjective Subjective: GI service follow up LFTs elevated D/W pt and Dr Kyung feldman Colon polyp- Tubular adenoma Objective - Vital Signs/Intake and Output Vital Signs (last 24 hours): Temp Pulse Resp BP Pulse Ox 97.5 F L 76 20 98/61 L 95 09/07/17 07:54 09/07/17 07:54 09/07/17 07:54 09/07/17 07:54 09/07/17 07:54 Intake and Output: 09/07/17 09/07/17 06:59 18:59 Intake Total 360 Balance 360 - Medications Medications: Current Medications Al Hydrox/Mg Hydrox/Simethicone (Maalox 30 Ml) 30 ml PO Q6 PRN PRN Reason: Indigestion / Heartburn Last Admin: 09/06/17 16:44 Dose: 30 ml Bismuth Subsalicylate (Pepto-Bismol) 262 mg PO Q6 PRN PRN Reason: Dyspepsia Last Admin: 08/28/17 17:15 Dose: 262 mg Clonidine HCl (Catapres) 0.1 mg PO Q4H PRN PRN Reason: Symptoms of alcohol withdrawl Last Admin: 09/03/17 00:36 Dose: 0.1 mg Docusate Sodium (Colace) 100 mg PO BID [facility] Last Admin: 09/07/17 09:33 Dose: 100 mg Ergocalciferol (Drisdol 50,000 Intl Units Cap) 1 cap PO Q7D [facility] Last Admin: 09/02/17 11:29 Dose: 1 cap Famotidine (Pepcid) 20 mg PO BID [facility] Last Admin: 09/07/17 09:33 Dose: 20 mg Gabapentin (Neurontin) 300 mg PO TID [facility] Last Admin: 09/07/17 14:31 Dose: 300 mg Hydroxyzine HCl (Atarax) 50 mg PO Q6 PRN PRN Reason: Agitation Last Admin: 09/06/17 21:52 Dose: 50 mg Lorazepam (Ativan) 0.5 mg PO TID [facility] Last Admin: 09/07/17 14:31 Dose: 0.5 mg Sertraline HCl (Zoloft) 50 mg PO DAILY [facility] Last Admin: 09/07/17 10:24 Dose: 50 mg Sertraline HCl (Zoloft) 100 mg PO DAILY [facility] Last Admin: 09/07/17 10:24 Dose: 100 mg Ursodiol (Actigall) 300 mg PO TID [facility] Last Admin: 09/07/17 14:31 Dose: 300 mg - Labs Labs: 09/02/17 08:15 08/28/17 13:48 - Constitutional Appears: Well, No Acute Distress - Head Exam Head Exam: NORMOCEPHALIC - Eye Exam Eye Exam: absent: Scleral icterus - Respiratory Exam Respiratory Exam: NORMAL BREATHING PATTERN - Cardiovascular Exam Cardiovascular Exam: REGULAR RHYTHM - GI/Abdominal Exam GI & Abdominal Exam: Soft. absent: Tenderness Assessment and Plan (1) Major depressive disorder, severe Assessment & Plan: Managed by Psychiatrist Status: Acute (2) Rectal bleeding Assessment & Plan: Hemorrhoid induced. Stable No further intervention necessary Status: Resolved (3) Abnormal liver function test Assessment & Plan: Likely drug induced Holding Seroquel Recommend outpatient follow up in GI clinic or PCP to monitor LFTs off Seroquel Status: Acute (4) Primary sclerosing cholangitis Assessment & Plan: Presently stable Should be followed in GI clinic after discharge Discussed with patient Status: Chronic (5) Rectal polyp Assessment & Plan: Benign recommend colonoscopy in 3 years. Pt high risk for colon cancer due to PSC Status: Acute
--- NOTE | 2017-09-07 18:54 | CP.PCM.PN ---
Subjective - Date & Time of Evaluation Date of Evaluation: 09/07/17 Time of Evaluation: 07:00 - Subjective Subjective: clinically same Objective - Vital Signs/Intake and Output Vital Signs (last 24 hours): Temp Pulse Resp BP Pulse Ox 98.2 F 77 20 110/73 95 09/07/17 16:14 09/07/17 16:14 09/07/17 16:14 09/07/17 16:14 09/07/17 16:14 Intake and Output: 09/07/17 09/07/17 06:59 18:59 Intake Total 360 Balance 360 - Medications Medications: Current Medications Al Hydrox/Mg Hydrox/Simethicone (Maalox 30 Ml) 30 ml PO Q6 PRN PRN Reason: Indigestion / Heartburn Last Admin: 09/06/17 16:44 Dose: 30 ml Bismuth Subsalicylate (Pepto-Bismol) 262 mg PO Q6 PRN PRN Reason: Dyspepsia Last Admin: 08/28/17 17:15 Dose: 262 mg Clonidine HCl (Catapres) 0.1 mg PO Q4H PRN PRN Reason: Symptoms of alcohol withdrawl Last Admin: 09/03/17 00:36 Dose: 0.1 mg Docusate Sodium (Colace) 100 mg PO BID [facility] Last Admin: 09/07/17 18:14 Dose: 100 mg Ergocalciferol (Drisdol 50,000 Intl Units Cap) 1 cap PO Q7D [facility] Last Admin: 09/02/17 11:29 Dose: 1 cap Famotidine (Pepcid) 20 mg PO BID [facility] Last Admin: 09/07/17 18:14 Dose: 20 mg Gabapentin (Neurontin) 300 mg PO TID [facility] Last Admin: 09/07/17 18:14 Dose: 300 mg Hydroxyzine HCl (Atarax) 50 mg PO Q6 PRN PRN Reason: Agitation Last Admin: 09/07/17 15:47 Dose: 50 mg Lorazepam (Ativan) 0.5 mg PO TID [facility] Last Admin: 09/07/17 18:14 Dose: 0.5 mg Sertraline HCl (Zoloft) 50 mg PO DAILY [facility] Last Admin: 09/07/17 10:24 Dose: 50 mg Sertraline HCl (Zoloft) 100 mg PO DAILY [facility] Last Admin: 09/07/17 10:24 Dose: 100 mg Ursodiol (Actigall) 300 mg PO TID [facility] Last Admin: 09/07/17 18:14 Dose: 300 mg - Labs Labs: 09/02/17 08:15 08/28/17 13:48 - Constitutional Appears: Well - Head Exam Head Exam: ATRAUMATIC, NORMAL INSPECTION, NORMOCEPHALIC - Eye Exam Eye Exam: EOMI, Normal appearance, PERRL Pupil Exam: NORMAL ACCOMODATION, PERRL - ENT Exam ENT Exam: Mucous Membranes Moist, Normal Exam - Neck Exam Neck Exam: Full ROM, Normal Inspection. absent: Lymphadenopathy - Respiratory Exam Respiratory Exam: Decreased Breath Sounds - Cardiovascular Exam Cardiovascular Exam: REGULAR RHYTHM, +S1, +S2 - GI/Abdominal Exam GI & Abdominal Exam: Soft, Diminished Bowel Sounds - Rectal Exam Rectal Exam: Deferred Assessment and Plan (1) Depression Status: Acute (2) Major depressive disorder, severe Status: Acute (3) Primary sclerosing cholangitis Status: Chronic (4) Rectal bleeding Status: Resolved (5) Abdominal colic Status: Acute (6) Abdominal pain Status: Acute (7) Abnormal liver function test Status: Acute (8) Cholangitis Status: Acute (9) Cholecystitis Status: Acute (10) Pneumobilia Status: Acute (11) Sepsis Status: Acute
[2017-09-07] MEDS: Aluminum Hydroxide/Magnesium Hydroxide Susp (30 mL) PO PRN (20:30)
--- NOTE | 2017-09-08 07:09 | CP.PCM.PN ---
Subjective - Date & Time of Evaluation Date of Evaluation: 09/08/17 Time of Evaluation: 07:00 - Subjective Subjective: clinically same Objective - Vital Signs/Intake and Output Vital Signs (last 24 hours): Temp Pulse Resp BP Pulse Ox 98.4 F 66 20 100/64 96 09/07/17 23:50 09/07/17 23:50 09/07/17 23:50 09/07/17 23:50 09/07/17 23:50 Intake and Output: 09/08/17 09/08/17 06:59 18:59 Intake Total 730 Balance 730 - Medications Medications: Current Medications Al Hydrox/Mg Hydrox/Simethicone (Maalox 30 Ml) 30 ml PO Q6 PRN PRN Reason: Indigestion / Heartburn Last Admin: 09/07/17 20:30 Dose: 30 ml Bismuth Subsalicylate (Pepto-Bismol) 262 mg PO Q6 PRN PRN Reason: Dyspepsia Last Admin: 08/28/17 17:15 Dose: 262 mg Clonidine HCl (Catapres) 0.1 mg PO Q4H PRN PRN Reason: Symptoms of alcohol withdrawl Last Admin: 09/03/17 00:36 Dose: 0.1 mg Docusate Sodium (Colace) 100 mg PO BID [facility] Last Admin: 09/07/17 18:14 Dose: 100 mg Ergocalciferol (Drisdol 50,000 Intl Units Cap) 1 cap PO Q7D [facility] Last Admin: 09/02/17 11:29 Dose: 1 cap Famotidine (Pepcid) 20 mg PO BID [facility] Last Admin: 09/07/17 18:14 Dose: 20 mg Gabapentin (Neurontin) 300 mg PO TID [facility] Last Admin: 09/07/17 18:14 Dose: 300 mg Hydroxyzine HCl (Atarax) 50 mg PO Q6 PRN PRN Reason: Agitation Last Admin: 09/07/17 22:17 Dose: 50 mg Lorazepam (Ativan) 0.5 mg PO TID [facility] Last Admin: 09/07/17 18:14 Dose: 0.5 mg Mirtazapine (Remeron) 15 mg PO HS [facility] Last Admin: 09/07/17 22:17 Dose: 15 mg Sertraline HCl (Zoloft) 50 mg PO DAILY [facility] Last Admin: 09/07/17 10:24 Dose: 50 mg Sertraline HCl (Zoloft) 100 mg PO DAILY [facility] Last Admin: 09/07/17 10:24 Dose: 100 mg Ursodiol (Actigall) 300 mg PO TID [facility] Last Admin: 09/07/17 18:14 Dose: 300 mg - Labs Labs: 09/02/17 08:15 08/28/17 13:48 - Constitutional Appears: Well - Head Exam Head Exam: ATRAUMATIC, NORMAL INSPECTION, NORMOCEPHALIC - Eye Exam Eye Exam: EOMI, Normal appearance, PERRL Pupil Exam: NORMAL ACCOMODATION, PERRL - ENT Exam ENT Exam: Mucous Membranes Moist, Normal Exam - Neck Exam Neck Exam: Full ROM, Normal Inspection. absent: Lymphadenopathy - Respiratory Exam Respiratory Exam: Decreased Breath Sounds - Cardiovascular Exam Cardiovascular Exam: REGULAR RHYTHM, +S1, +S2 - GI/Abdominal Exam GI & Abdominal Exam: Soft, Diminished Bowel Sounds - Rectal Exam Rectal Exam: Deferred Assessment and Plan (1) Depression Status: Acute (2) Major depressive disorder, severe Status: Acute (3) Primary sclerosing cholangitis Status: Chronic (4) Rectal bleeding Status: Resolved (5) Abdominal colic Status: Acute (6) Abdominal pain Status: Acute (7) Abnormal liver function test Status: Acute (8) Cholangitis Status: Acute (9) Cholecystitis Status: Acute (10) Pneumobilia Status: Acute (11) Sepsis Status: Acute - Assessment and Plan (Free Text) Plan: CBC CMP and LFT now continue current medications Follow-up with GI We will discharge the patient is cleared by the GI as patient LFTs rising
--- NOTE | 2017-09-08 15:42 | CP.PCM.PN ---
Subjective - Date & Time of Evaluation Date of Evaluation: 09/08/17 Time of Evaluation: 15:42 - Subjective Subjective: PT CLEARED FOR D/C TO [facility] TODAY PER DR. Ivonne PERKINS. ALSO CLEARED BY GI TEAM WITH OUTPATIENT F/U AND REPEAT LABS. APPELLATE COURT CLERK DISCUSSED ALL D/C PLANS, F/U APPTS, LABS , AND RX WITH THE PT. PT VERBALIZES UNDERSTANDING OF ALL INSTRUCTIONS. NO FURTHER ORDERS. -FOLLOW UP WITH DR. Fátima PERKINS IN THE OFFICE IN 1 WEEK---CALL FOR APPOINTMENT TIME. -FOLLOW UP WITH DR. ERIC OR DR. DENT ([facility] DO[facility]ORS) IN THEIR OFFICE WITHIN 1 WEEK---CALL THE OFFICE TOMORROW TO MAKE YOUR APPOINTMENT TIME. YOU WILL HAVE FURTHER BLOOD TESTS TO MONITOR YOUR LIVER FUNCTION WITH DR. ERIC OR DR. DENT. -CONTINUE MEDICATIONS PER YOUR DISCHARGE PAPERWORK. -NEW MEDICATIONS INCLUDE: 1) PROTONIX 40 MG (FOR YOUR GASTRITIS)--TAKE 1 TABLET ONCE A DAY. 2) GABAPENTIN 300 MG--TAKE 1 TABLET 3 TIMES A DAY. 3) ERGOCALCIFEROL (VITAMIN)--TAKE 1 TABLET ONCE A DAY. 4) URSODIOL (FOR YOUR LIVER)---TAKE 1 TABLET 3 TIMES A DAY. 5) LORAZEPAM (FOR YOUR NERVES)---TAKE 1 TABLET 3 TIMES A DAY. 6) REMERON (FOR BEDTIME)---TAKE 1 TABLET AT BEDTIME. 7) ZOLOFT (FOR DEPRESSION)---TAKE ONCE A DAY. -DO NOT TAKE SEROQUEL! THIS MAY BE CAUSING YOUR ELEVATION IN LIVER TESTS. -IF YOU HAVE ANY FURTHER QUESTIONS OR CONCERNS, CONTACT DR. Fátima PERKINS. Objective - Vital Signs/Intake and Output Vital Signs (last 24 hours): Temp Pulse Resp BP Pulse Ox 98.1 F 74 20 102/65 95 09/08/17 07:51 09/08/17 07:51 09/08/17 07:51 09/08/17 07:51 09/08/17 07:51 Intake and Output: 09/08/17 09/08/17 06:59 18:59 Intake Total 730 Balance 730 - Medications Medications: Current Medications Al Hydrox/Mg Hydrox/Simethicone (Maalox 30 Ml) 30 ml PO Q6 PRN PRN Reason: Indigestion / Heartburn Last Admin: 09/07/17 20:30 Dose: 30 ml Bismuth Subsalicylate (Pepto-Bismol) 262 mg PO Q6 PRN PRN Reason: Dyspepsia Last Admin: 08/28/17 17:15 Dose: 262 mg Clonidine HCl (Catapres) 0.1 mg PO Q4H PRN PRN Reason: Symptoms of alcohol withdrawl Last Admin: 09/03/17 00:36 Dose: 0.1 mg Docusate Sodium (Colace) 100 mg PO BID [facility] Last Admin: 09/08/17 09:36 Dose: 100 mg Ergocalciferol (Drisdol 50,000 Intl Units Cap) 1 cap PO Q7D [facility] Last Admin: 09/02/17 11:29 Dose: 1 cap Famotidine (Pepcid) 20 mg PO BID [facility] Last Admin: 09/08/17 09:36 Dose: 20 mg Gabapentin (Neurontin) 300 mg PO TID [facility] Last Admin: 09/08/17 13:38 Dose: 300 mg Hydroxyzine HCl (Atarax) 50 mg PO Q6 PRN PRN Reason: Agitation Last Admin: 09/07/17 22:17 Dose: 50 mg Lorazepam (Ativan) 0.5 mg PO TID [facility] Last Admin: 09/08/17 13:38 Dose: 0.5 mg Mirtazapine (Remeron) 15 mg PO HS [facility] Last Admin: 09/07/17 22:17 Dose: 15 mg Sertraline HCl (Zoloft) 50 mg PO DAILY [facility] Last Admin: 09/08/17 09:36 Dose: 50 mg Sertraline HCl (Zoloft) 100 mg PO DAILY [facility] Last Admin: 09/08/17 09:37 Dose: 100 mg Ursodiol (Actigall) 300 mg PO TID [facility] Last Admin: 09/08/17 13:38 Dose: 300 mg - Labs Labs: 09/02/17 08:15 08/28/17 13:48
--- NOTE | 2017-09-08 16:57 | CP.PCM.PN ---
Subjective - Date & Time of Evaluation Date of Evaluation: 09/08/17 Time of Evaluation: 07:00 - Subjective Subjective: clinically same Objective - Vital Signs/Intake and Output Vital Signs (last 24 hours): Temp Pulse Resp BP Pulse Ox 86 F L 86 20 118/71 96 09/08/17 16:00 09/08/17 16:00 09/08/17 16:00 09/08/17 16:00 09/08/17 16:00 Intake and Output: 09/08/17 09/08/17 06:59 18:59 Intake Total 730 Balance 730 - Medications Medications: Current Medications Al Hydrox/Mg Hydrox/Simethicone (Maalox 30 Ml) 30 ml PO Q6 PRN PRN Reason: Indigestion / Heartburn Last Admin: 09/07/17 20:30 Dose: 30 ml Bismuth Subsalicylate (Pepto-Bismol) 262 mg PO Q6 PRN PRN Reason: Dyspepsia Last Admin: 08/28/17 17:15 Dose: 262 mg Clonidine HCl (Catapres) 0.1 mg PO Q4H PRN PRN Reason: Symptoms of alcohol withdrawl Last Admin: 09/03/17 00:36 Dose: 0.1 mg Docusate Sodium (Colace) 100 mg PO BID [facility] Last Admin: 09/08/17 09:36 Dose: 100 mg Ergocalciferol (Drisdol 50,000 Intl Units Cap) 1 cap PO Q7D [facility] Last Admin: 09/02/17 11:29 Dose: 1 cap Famotidine (Pepcid) 20 mg PO BID [facility] Last Admin: 09/08/17 09:36 Dose: 20 mg Gabapentin (Neurontin) 300 mg PO TID [facility] Last Admin: 09/08/17 13:38 Dose: 300 mg Hydroxyzine HCl (Atarax) 50 mg PO Q6 PRN PRN Reason: Agitation Last Admin: 09/07/17 22:17 Dose: 50 mg Lorazepam (Ativan) 0.5 mg PO TID [facility] Last Admin: 09/08/17 13:38 Dose: 0.5 mg Mirtazapine (Remeron) 15 mg PO HS [facility] Last Admin: 09/07/17 22:17 Dose: 15 mg Sertraline HCl (Zoloft) 50 mg PO DAILY [facility] Last Admin: 09/08/17 09:36 Dose: 50 mg Sertraline HCl (Zoloft) 100 mg PO DAILY [facility] Last Admin: 09/08/17 09:37 Dose: 100 mg Ursodiol (Actigall) 300 mg PO TID [facility] Last Admin: 09/08/17 13:38 Dose: 300 mg - Labs Labs: 09/02/17 08:15 08/28/17 13:48 - Constitutional Appears: Well - Head Exam Head Exam: ATRAUMATIC, NORMAL INSPECTION, NORMOCEPHALIC - Eye Exam Eye Exam: EOMI, Normal appearance, PERRL Pupil Exam: NORMAL ACCOMODATION, PERRL - ENT Exam ENT Exam: Mucous Membranes Moist, Normal Exam - Neck Exam Neck Exam: Full ROM, Normal Inspection. absent: Lymphadenopathy - Respiratory Exam Respiratory Exam: Decreased Breath Sounds - Cardiovascular Exam Cardiovascular Exam: REGULAR RHYTHM, +S1, +S2 - GI/Abdominal Exam GI & Abdominal Exam: Soft, Diminished Bowel Sounds - Rectal Exam Rectal Exam: Deferred Assessment and Plan (1) Depression Status: Acute (2) Major depressive disorder, severe Status: Acute (3) Primary sclerosing cholangitis Status: Chronic (4) Rectal bleeding Status: Resolved (5) Abdominal colic Status: Acute (6) Abdominal pain Status: Acute (7) Abnormal liver function test Status: Acute (8) Cholangitis Status: Acute (9) Cholecystitis Status: Acute (10) Pneumobilia Status: Acute (11) Sepsis Status: Acute
[2017-09-09 08:12] VITALS: BP 112/74; PULSE 85; TEMP 97.9; O2SAT 98
[2017-09-09] MEDS: Ergocalciferol 50,000 Intl Units Cap PO SCH (11:00)
== END 2017-09-09 12:53 | disposition home or self-care (01) | DRG 430 ==
LOC: C.ER 16:59 → C.9E 19:45 → C.5E 20:01 → C.3T 09-02 14:01
PROVIDERS: ADMIT Internal Medicine Nephrology; ATTEND Internal Medicine Nephrology
PROC: GZ3ZZZZ Medication Management (ICD-10-PCS; principal; 2017-08-24)
PROC: GZHZZZZ Group Psychotherapy (ICD-10-PCS; 2017-08-24)
PROC: GZ56ZZZ Individual Psychotherapy, Supportive (ICD-10-PCS; 2017-08-24)
PROC: 0DBM8ZX Excision of Descending Colon, Via Natural or Artificial Opening Endoscopic, Diagnostic (ICD-10-PCS; 2017-09-04)
DX: F33.2 Major depressive disorder, recurrent severe without psychotic features (principal); A41.9 Sepsis, unspecified organism; F13.239 Sedative, hypnotic or anxiolytic dependence with withdrawal, unspecified; K62.5 Hemorrhage of anus and rectum; K29.70 Gastritis, unspecified, without bleeding; F17.210 Nicotine dependence, cigarettes, uncomplicated; R45.851 Suicidal ideations; K81.9 Cholecystitis, unspecified; D12.4 Benign neoplasm of descending colon; K64.0 First degree hemorrhoids; K57.30 Diverticulosis of large intestine without perforation or abscess without bleeding; F41.9 Anxiety disorder, unspecified; Z59.0 Homelessness; Z79.899 Other long term (current) drug therapy